=== PATIENT | male | born 1945 | race Caucasian/White ===

== ENCOUNTER 2017-01-22 22:53 | Inpatient (IN) | payer MEDICARE ==
[~2017-01-22] VITALS: Ht 175.3 cm; Wt 73.6 kg
[2017-01-22] MEDS ORDERED: ASPIRIN81 MG PT (23:24)
[2017-01-22] MEDS ORDERED: LIPITOR40 MG PT (23:26)
[2017-01-22] MEDS ORDERED: COLACE50 MG/5 ML PT (23:28)
[2017-01-22] MEDS ORDERED: ELIQUIS5 MG PT (23:29)
[2017-01-22] MEDS ORDERED: BETAPACE 120 M120 MG PT (23:31)
[2017-01-22] MEDS ORDERED: ULTRACET TABLET1 TAB PT ×2 (23:36→23:51)
[2017-01-22] MEDS ORDERED: EFFEXOR37.5 MG PT (23:37)
[2017-01-22] MEDS ORDERED: ACETAMINOPHEN325 MG PT (23:41)
[2017-01-22] MEDS ORDERED: BISCOLAX10 MG/SUPP RC (23:42)
[2017-01-22] MEDS ORDERED: CATAPRES0.1 MG PT (23:45)
[2017-01-22] MEDS ORDERED: NITROSTAT0.4 MG SL (23:46)
[2017-01-22] MEDS ORDERED: ZOFRAN4 MG PT (23:48)
--- NOTE | 2017-01-23 02:39 | NUR ---
NEW ADMIT TO DOCTOR JC FROM [facility] TO [facility]. ADMITTED FOR SUICIDAL IDEATION. THREATENING TO COMMIT SUICIDE AND CRYING HEAVILY. HX OF CVA. LEFT SIDE WEAKNESS. PATIENT IS A FULL CODE. ADMISSION CONSENT TO TREAT RECEIVED FROM ROHINI ALVAREZ. PATIENT WAS RECEIVED TO [facility] FROM [facility] VIA [employer] SHUTTLE. [facility] STAFF ACCOMPANIED PATIENT INTO [facility] WITH PATIENT IN WHEELCHAIR. PATIENT WAS CALM AND COOPERATIVE UPON ADMISSION. ORIENTED TO UNIT. ENCOURAGE TO EXPRESS NEEDS.
[2017-01-23 07:09] LABS: BASOPHILS 0.3 % (0-2); EOSINOPHILS 2.7 % (0-7); HEMATOCRIT 41.5 % (42.0-54.0); HEMOGLOBIN 13.2 g/dL (13.5-17.5); IMMATURE GRANULOCYTES 0.8 % (0-5); LYMPHOCYTES 26.5 % (15-50); MCH 29.3 pg (26.0-34.0); MCHC 31.8 g/dL (31.0-37.0); MCV 92.2 fL (80.0-100.0); MEAN PLATELET VOLUME 9.9 fL (7.4-10.4); MONOCYTES 13.5 % (2-11); NEUTROPHILS 56.2 % (40-80); PLATELET COUNT 344 10x3/uL (130-400); RDW 14.2 % (11.5-14.5); WBC 6.6 10x3/uL (4.8-10.8)
[2017-01-23 07:17] LABS: HEMOGLOBIN A1C 5.4 % (4.8-6.0)
[2017-01-23 07:37] LABS: ALBUMIN 2.9 g/dL (3.4-5.0); ALKALINE PHOSPHATASE 194 U/L (46-116); ALT (SGPT) 54 U/L (10-68); BILIRUBIN - TOTAL 0.52 mg/dL (0.2-1.3); CALC OSMOLALITY 280 mosm/kg (275-300); CALCIUM 9.2 mg/dL (8.5-10.1); CARBON DIOXIDE 28.2 mmol/L (21.0-32.0); CHLORIDE - SERUM 103 mmol/L (98-107); CHOL - HDL RATIO 2.8 ratio (2.3-4.9); CHOLESTEROL, TOTAL 120 mg/dL (0-200); GLUCOSE 94 mg/dL (74-106); HDL CHOLESTEROL 43 mg/dL (32-96); LDL CHOLESTEROL 59 mg/dL (0-100); LDL-HDL RATIO 1.4 ratio (1.5-3.5); POTASSIUM - SERUM 3.9 mmol/L (3.5-5.1); PROTEIN - SERUM 7.3 g/dL (6.4-8.2); SODIUM 140 mmol/L (136-145); THYROID STIMULATING HORMONE 1.19 uIU/mL (0.36-3.74); TRIGLYCERIDE 90 mg/dL (30-200); UREA NITROGEN 18 mg/dL (7-18); eGFR NON AFRICAN AMERICAN 78 mL/min (90-120)
[2017-01-23 14:04] LABS: APPEARANCE CLEAR (CLEAR); COLOR YELLOW (YELLOW); GLUCOSE NEGATIVE (NEGATIVE); KETONE NEGATIVE (NEGATIVE); NITRITE NEGATIVE (NEGATIVE); PROTEIN NEGATIVE (NEGATIVE); UROBILINOGEN NORMAL (NORMAL)
[2017-01-23 14:05] LABS: BILIRUBIN NEGATIVE (NEGATIVE)
--- NOTE | 2017-01-23 14:46 | NUR ---
CHECKED RESIDUAL BEFORE TF, NO RESIDUAL. 75ML H2O FLUSH, OSMOLITE 1.5 (1CAN), FOLLOWED BY 75ML H2O FLUSH. PT TOLERATED WELL, STATED HE IS NOT HUNGRY AND DOES NOT LIKE BEING FED THRU THE TUBE. I ASKED WHY HE IS NOT EATING HIS MEALS AND HE STATED HE JUST DOES NOT WANT TO EAT, AND WILL EAT WHEN HE FEELS LIKE IT.
[2017-01-23 16:04] VITALS: BP 144/85
--- NOTE | 2017-01-23 17:11 | NUR ---
ORIENTED TO SELF,PLACE AND DATE.DENIES SUICIDAL IDEATION,STATES"I JUST HAD THAT THOUGHT ONE TIME,BUT I WOULD NEVER DO IT."IS COMPLIANT WITH STAFF AND MEDS.TOTAL CARE,LEFT ARM FLACCID,LEFT LEG WEAK.WILLCONTINUE WITH PLAN OF CARE,MONITOR FOR CHANGES AND SAFETY.
[2017-01-23 19:30] VITALS: BP 140/83
--- NOTE | 2017-01-23 19:43 | NUR ---
C/O CHEST PAIN LEFT SIDE OF CHEST. BP 133/60 P58 O2 98%, GAVE PRN NITRO.
--- NOTE | 2017-01-23 21:30 | NUR ---
RECEIVED IN HALLWAY. RESTING QUIETLY IN RECLINING CHAIR. GIVE A NITRO TAB BY DAYSHIFT NURSE TO RELIEVE CHEST PAIN. TRANSFERED TO BED. CALM AND COOPERATIVE WITH ADMIT ASSESSMENTS. STATS HE HAS NO CHEST PAIN AFTER TAKING NITRO. DOCTOR EMILIANO CALLED AND NO NEW ORDERS RECEIVED. ENCOURAGE TO EXPRESS NEEDS. DENIES THOUGHTS OF SELF HARM. CONTINUE PLAN OF CARE
--- NOTE | 2017-01-24 05:02 | PSY ---
PATIENT NAME:GENESIS HOLLIS MEDICAL RECORD: [id number] : 45 LOCATION:DebraJM June3 ADMISSION DATE: 01/22/17 ACCOUNT: [id number] PSYCHIATRIC EVALUATION DATE OF EVALUATION: 01/23/17 IDENTIFYING DATA: This is the first [facility] admission and as far as can be determined the psychiatric contact for this 71-year-old single white male. HISTORY OF PRESENT ILLNESS: This patient is a resident of [facility] in [place]. 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 Evidently as a complication of this, the patient has difficulty with swallowing. He does have a PEG tube in place. The reason for admission was due to the fact that the patient had been overheard making suicidal statements by assisted staff. They became alarmed about this and had him transferred here. The patient had already been started on Effexor 37.5 mg twice a day as of one week ago. The patient's niece was interviewed by phone. She stated that she was very concerned about the frequency of medication changes that have occurred with the patient over the last several weeks. She mentioned that he had already been tried on methylphenidate as well as Symmetrel, both of these medications have been stopped. She had noted a deterioration in mental status and was speculating that perhaps medication changes might be at least partly responsible for those observed changes. The patient upon arrival at [place] did not continue to express any type of suicidal ideation. He was very pleasant and cooperative and has remained sober since then. The patient is now admitted for further medical and psychiatric workup. PAST MEDICAL HISTORY: As mentioned, the patient did suffer recent cerebrovascular accident. He appears to have a past history of hypertension and coronary artery disease. MEDICATIONS: At the time of admission included Effexor as mentioned above, Betapace 120 mg twice a day, Lipitor 40 mg daily, aspirin 81 mg daily, Eliquis 5 mg twice a day, p.r.n. tramadol, Zofran, also Nitrostat, Catapres 0.1 mg every 4 hours p.r.n. FAMILY HISTORY: Apparently is noncontributory. SOCIAL HISTORY: The patient is a assisted resident. He does not have family involved in his care other than his niece. There is no history of substance abuse problems. ALLERGIES: LISTED CODEINE AND PENICILLIN TYPE DRUGS. MENTAL STATUS: On interview, the patient is pleasant and receptive to the examiner. He states that he does not feel like hurting himself, but does admit to feeling depressed. Affect is bland. Speech is rather terse, but otherwise generally appropriate. Content of thought as mentioned is positive for recent suicidal ideation. The patient is oriented to person and to place, but not correctly as to the date. Remote recall appears to be intact. Concentration and short-term recall do show some difficulties. DIAGNOSTIC IMPRESSION: AXIS I: Major depressive disorder - single episode - rule out early dementia. AXIS II: No diagnosis. AXIS III: Status post cerebrovascular accident, hypertension, coronary artery disease, hypercholesterolemia. AXIS IV: Moderate. AXIS V: 38. PLAN: 1. The patient will be admitted for further workup from a medical and psychiatric standpoint. 2. Daily supportive therapy. 3. We will coordinate with family regarding aftercare. TRANSINT:[id number] Voice Confirmation ID: [id number] DOCUMENT ID: [id number] VALARIE GREENE III, MD at 0502 CC: [id number] DICTATION DATE: 01/23/17915 DAM TENDER: 01/23/17 0942 ADM IN [facility] [address] [place] [address]
[2017-01-24 08:05] VITALS: BP 121/68
--- NOTE | 2017-01-24 20:06 | NUR ---
HAS BEEN ALERT AND ORIENTED TODAY.LEFT ARM FLACCID AND REQUIRES ASSIST WITH MEALS.COMPLIANT WITH MEDS AND STAFF.WILL CONTINUE WITH PLAN OF CARE,MONITOR FOR CHANGES.
[2017-01-24 20:30] VITALS: BP 125/78
--- NOTE | 2017-01-24 20:57 | NUR ---
EMILY [facility]. SITTING IN A RECLINING CHAIR. CALM AND COOPERATIVE WITH CARE AND ASSESSMENTS. DENIES THOUGHTS OF SELF HARM. RESTING IN BED EYES CLOSED AT THIS TIME. CONTINUE PLAN OF CARE
--- NOTE | 2017-01-25 01:16 | NUR ---
PATEINT REFUSED TUBE FEEDING THIS PM. STATING HE STILL FEELS SICK AT HIS STOMACH.
[2017-01-25 07:09] LABS: VITAMIN D 25 HYDROXY 16.9 ng/mL (30.0-100.0)
[2017-01-25 07:25] VITALS: BMI 23.9
--- NOTE | 2017-01-25 10:30 | NUR ---
B) PATIENT IS AWAKE AND ALERT AND HE IS TALKING, DENIES S.I. HE DOES NOT AMBULATE, HE IS IN A ARLIN CHAIR AT THIS TIME. I) PROVIDE PRESCRIBED MEDS. R) PATIENT DID RECEIVE HIS TUBE FEEDING AND WATER FLUSHES. P) CONTINUE POC.
[2017-01-25 11:26] VITALS: Ht 175.3 cm; Wt 73.6 kg
--- NOTE | 2017-01-25 11:28 | NUR ---
PATIENT C/O CHEST PAIN, DID PROVIDE NITRO SL, WILL MONITOR.
--- NOTE | 2017-01-25 12:08 | NUR ---
PATIENT HAS NO C/O PAIN AT THIS TIME, HE IS RESTING EASILY.
[2017-01-25 12:18] VITALS: BP 121/69
--- NOTE | 2017-01-25 20:17 | NUR ---
RECEIVED IN HALLWAY. SITTING IN A RECLINING CHAIR OUTSIDE OF NURSES STATION. IN GOOD SPIRITS. CALM AND COOPERATIVE WITH CARE AND ASSESSMENTS. DENIES THOUGHTS OF SELF HARM. ENCOURAGE TO EXPRESS NEEDS. REMAINS IN RECLINING CHAIR. RESTING QUIETLY WITH EYES CLOSED. CONTINUE PLAN OF CARE
[2017-01-25 20:35] VITALS: BP 97/63
--- NOTE | 2017-01-25 20:41 | NUR ---
PATIENT STATES CHEST PAIN OF 10. VITALS 134/61, 57. PRN NITRO 0.4 MG GIVEN FOR CHEST PAIN.
[2017-01-26 03:09] LABS: RAPID PLASMA REAGIN Non Reactive (Non Reactive)
[2017-01-26 05:13] LABS: FOLATE (FOLIC ACID) - SERUM 9.2 ng/mL (>3.0)
--- NOTE | 2017-01-26 09:42 | NUR ---
Nutrition Note: Pt is on a regular mechanical soft diet. He is also receiving Osmolite 1.5 - 1 can 4x/d (0600, 1000, 1400, 1900) with 75 ml H2O flush before and after each bolus. Current TF regimen is providing 1420 kcal, 60 g protein and 1324 ml free H2O. Continue current TF regimen. If pt eats > 50% of meal do not bolus. RD following.
--- NOTE | 2017-01-26 10:17 | PN ---
PATIENT:GENESIS HOLLIS MEDICAL RECORD: [id number] LOCATION:HECTOR June ADMISSION DATE: 01/22/17 PROGRESS NOTE DATE OF SERVICE: 01/25/2017 SUBJECTIVE: No new complaint noted. OBJECTIVE: The patient has been doing well. No further suicidal ideation has been voiced. PHYSICAL EXAMINATION: On exam, mood is pleasant and euthymic. Affect is bland. Speech is fairly fluent. Content of thought is negative for suicidality. Sensorium shows no changes. ASSESSMENT: No change in diagnosis. PLAN: 1. Continue current medication. 2. Anticipate discharge in the near future. TRANSINT:[id number] Voice Confirmation ID: [id number] DOCUMENT ID: [id number] VALARIE GREENE III, MD at 1017 CC: [id number] DICTATION DATE: 01/25/17 1348 TEMPLATE REPRODUCTION TECHNICIAN: 01/25/17 1410 ADM IN [place] [id number] [place] [id number]
[2017-01-26 10:32] VITALS: BP 125/81
[2017-01-26 20:22] VITALS: BP 103/55
--- NOTE | 2017-01-26 20:45 | NUR ---
RECEIVED IN HALLWAY. RESTING IN A RECLINER OUTSIDED OF NURSES STATION. CALM AND COOPERATIVE WITH CARE AND ASSESSMENTS. DENIES THOUGHTS OF SELF HARM. ENCOURAEG TO EXPRESS NEEDS. RESTING IN RECLINER EYE OPEN AT THIS TIME. CONTINUE PLAN OF CARE
[2017-01-27 08:00] VITALS: BP 158/80
--- NOTE | 2017-01-27 09:31 | PN ---
PATIENT:GENESIS HOLLIS MEDICAL RECORD: [id number] LOCATION:HECTOR June ADMISSION DATE: 01/22/17 PROGRESS NOTE DATE OF SERVICE: 01/26/2017 SUBJECTIVE: No new complaint. OBJECTIVE: The patient has done well. No further suicidal ideation has been noted. Tolerating medications without difficulty. He will require a level 2 screen from [facility] [facility] [employer]. On exam, mood is euthymic. Affect bland. Speech is terse, but otherwise fluent. Content of thought is negative for overt psychosis or suicidalities. Sensorium unchanged. ASSESSMENT: No change in diagnosis. PLAN: 1. Maintain current medication. 2. Continue supportive therapy. TRANSINT:[id number] Voice Confirmation ID: [id number] DOCUMENT ID: [id number] VALARIE GREENE III, MD at 0931 CC: [id number] DICTATION DATE: 01/26/17 1204 SECURITY ESCORT: 01/26/17 1224 ADM IN [place] [address] [place] [address]
--- NOTE | 2017-01-27 11:00 | NUR ---
OSMOLITE 1.5 240 ML ADMIN PER G TUBE, FLUSHED WITH 75 CC H20 BEFORE AND AFTER. PLACEMENT CHECKED PRIOR TO FEEDING VIA AUSCULTATION AND ASPIRATION. BRE WELL.
--- NOTE | 2017-01-27 11:18 | NUR ---
SW SPOKE WITH PT AND HE STATED HE WAS NEEDING TO SPEAK WITH HIS NIECE. SW STATED HE SPOKE WITH MALGORZATA YESTERDAY AT VISITATION. PT DENIED VISITATION AND STATED SHE NEEDS TO BRING HIM A GUN SO HE CAN SHOOT HIMSELF.
--- NOTE | 2017-01-27 12:21 | NUR ---
PT STATED THAT HE WANTED A GUN TO SHOOT SELF. [employer] REVIEWED WITH PT AND HE VERBALIZED CONTRACT FOR SAFETY. PT HAS A CARE PLAN IN PLACE FOR SUICIDAL IDEATION DUE TO THIS BEING THE REASON FOR HIS ADMIT. PT INITIALLY REFUSED HIS TUBE FEEDING BUT DID FINALLY LET WANDER OSBORNE COMPLETE IT AROUND 1200 NOON. PT IS RESTLESS AND DEMANDING. FALL PRECAUTIONS MAINTAINED. WILL CONTINUE TO MONITOR AND CONTINUE WITH PLAN OF CARE.
--- NOTE | 2017-01-27 15:00 | NUR ---
G TUBE PLACEMENT CHECKED VIA ASPIRATION AND AUSCULTATION, PLACEMENT CORRECT. OSMOLITE ADMIN VIA G TUBE, GRAVITY FLOW. G-TUBE FLUSHED WITH 75 ML H20 BEFORE AND AFTER FEEDING. BRE WELL.
[2017-01-27 20:05] VITALS: BP 105/52
--- NOTE | 2017-01-27 20:38 | NUR ---
RECEIVED IN HALLWAY OUTSIDE OF NURSES STATION. CALM AND COOPERATIVE WITH CARE AND ASSESSMENTS. DENIES THOUGHTS OF SUICIDE. ENCOURAGE TO EXPRESS NEEDS AND FEELINGS. CONTINUES TO REST IN HALLWAY IN RECLINER. CONTINUE PLAN OF CARE
--- NOTE | 2017-01-28 08:07 | PN ---
PATIENT:GENESIS HOLLIS MEDICAL RECORD: [id number] LOCATION:HECTOR June ADMISSION DATE: 01/22/17 PROGRESS NOTE DATE OF SERVICE: 01/27/2017 SUBJECTIVE: The patient expresses frustration with family and his situation and makes reference to "ending it all." OBJECTIVE: The patient had been doing quite well up until the family visitation yesterday. Subsequent to this, this morning, the patient has refused to eat and has made the statement noted above. On exam, mood is dysphoric. Affect is more constricted. Speech is rather terse. Content of thought as noted above. Sensorium shows no change. ASSESSMENT: No change in diagnosis. PLAN: 1. We will continue close observation and treatment for depression. 2. Continue current medication plan. TRANSINT:[id number] Voice Confirmation ID: [id number] DOCUMENT ID: [id number] VALARIE GREENE III, MD at 0807 CC: [id number] DICTATION DATE: 01/27/17 1149 AEROBICS TEACHER: 01/27/17 1219 ADM IN [place] [id number] [place] [address]
--- NOTE | 2017-01-28 08:17 | NUR ---
ORIENTED TO PERSON ONLY. PT THINKS THAT HE IS IN HIS HOME IN [place]. FREQUENT REDIRECTION DONE WITH NO EVIDENCE OF RETAINING. NO AGGRESSION NOTED BUT PT IS DEMANDING. TUBE FEEDING FOR 0600 HELD DUE TO PT C\O NAUSEA. WILL ATTEMPT TO GET PT TO EAT BREAKFAST. FALL PRECAUTIONS MAINTAINED. WILL CONTINUE TO MONITOR AND CONTINUE WITH PLAN OF CARE.
--- NOTE | 2017-01-28 11:14 | NUR ---
PT REFUSED 1000 TUBE FEEDING.
[2017-01-28 11:59] VITALS: BP 110/60
--- NOTE | 2017-01-28 15:58 | NUR ---
LEI MET WITH PT'S NIECE, MALGORZATA, TO DISCUSS PT'S CARE. PT IS WAITING ON [facility] EVALUATION THAT WILL HAPPEN TOMORROW. LEI STATED AFTER HE GETS A LETTER FROM [facility] STATING HE CAN GO BACK TO [place] MD WILL RELEASE IF BEHAVIORS ARE STABLE. MALGORZATA VERBALIZED UNDERSTANDING OF DISCUSSION.
--- NOTE | 2017-01-28 17:27 | NUR ---
PATIENT C/O BACK PAIN, DID PROVIDE ULTRAM 50 MG PO, WILL MONITOR.
--- NOTE | 2017-01-28 18:04 | NUR ---
PATIENT SAYS HIS PAIN IS A LITTLE BETTER NOW. RATES IT 4-5/.
--- NOTE | 2017-01-28 19:35 | NUR ---
RECEIVED IN DAYROOM. RESTING IN RECLINER WITH EYES OPEN. CALM AND COOPERATIVE WITH CARE AND ASSESSMENT. DENIES THOUGHTS OF SELF HARM. COMPLAINS OF CHEST PAIN. RATES CHEST PAIN LEVEL AT 8. VITAL SIGNS STABLE. NITRO GIVEN. REDIRECT AND REORIENT NEEDED. PATIENT SITTING IN RECLINER SOCIALIZING WITH STAFF. CONTINUE TO MONITOR. CONTINUE PLAN OF CARE.
[2017-01-28 22:00] VITALS: BP 103/59
--- NOTE | 2017-01-29 07:40 | NUR ---
RECEIVED IN BEDROOM. RESTING IN BED WITH EYES CLOSED. RESPONDS TO VOICE. G-TUBE INTACT. CALM AND COOPERATIVE WITH CARE AND ASSESSMENT. DENIES THOUGHT OS SELF HARM. ENCOURAGE TO EXPRESS NEEDS. CONTINUES TO REST QUIETLY IN BED. CONTINUE PLAN OF CARE
--- NOTE | 2017-01-29 10:07 | PN ---
PATIENT:GENESIS HOLLIS MEDICAL RECORD: [id number] LOCATION:HCETOR June ADMISSION DATE: 01/22/17 PROGRESS NOTE DATE OF SERVICE: 01/28/2017 SUBJECTIVE: The patient states that he is not suicidal. OBJECTIVE: The patient has shown improvement since yesterday. He stated that he was feeling "desperate" because of pain. Pain medications have been adjusted. On exam, mood is more or less euthymic. Affect is bland. Speech is somewhat terse. Content of thought is negative for overt psychosis or suicidalities. Sensorium shows no change. ASSESSMENT: No change in diagnosis. PLAN: 1. Continue current medications. 2. Continue supportive therapy. TRANSINT:[id number] Voice Confirmation ID: [id number] DOCUMENT ID: [id number] VALARIE GREENE III, MD at 1007 CC: [id number] DICTATION DATE: 01/28/17 1146 PLANT PATHOLOGIST: 01/28/17 1221 ADM IN [place] [address] [place] [address]
[2017-01-29 10:47] VITALS: BP 110/65
--- NOTE | 2017-01-29 10:48 | NUR ---
PATIENT C/O CHEST PAIN, CHECKED BP IT IS 110/60, BUT PATIENT INSISTED ON A NITROSTAT 0.4 MG SL. DID TRY TO TALK TO THE PATIENT TO EXPLAIN THAT HE IS PROBABLY HAVING AN ANXIETY ATTACK. PATIENT THEN OPENED UP AND SAID "YES, I PROBABLY AM, THE PADDING MACHINE OPERATOR TOLD ME MY HEART WAS BAD AND SO EVERYTIME I FEEL ANY LITTLE DIFFERENCE I WORRY" PATIENT ALSO JUST SAW THE INTERVIEWER FROM [facility] [place] AND THAT MAY HAVE BEEN A CONTRIBUTING FACTOR FOR MORE ANXIETY. HE SAID "I JUST TOOK A TEST AND I'M NOT SURE IF I DID GOOD OR NOT" TRIED TO REASSURE PATIENT THAT HE DID WELL AND THAT THE LADY DID SAY SHE THOUGHT HE WOULD BE FINE TO GO BACK TO [place] [facility] AT THIS TIME. HE DID FEEL A LITTLE BETTER. NO MORE C/O CHEST PAIN AFTER THE NITROSTAT AND CONVERSATION, PATIENT TOOK A NAP.
[2017-01-29 19:30] VITALS: BP 124/62
--- NOTE | 2017-01-30 04:58 | NUR ---
B) Patient alert and oriented to self and being in a hospital, calmer and pleasant today, impatient at times does redirect. I) Administered scheduled medications, monitored for safety R) Medication compliant, resting quietly in bed P) Continue plan of care.
[2017-01-30 08:00] VITALS: BP 120/53
--- NOTE | 2017-01-30 08:02 | NUR ---
B) PATIENT IS SLEEPING, BUT HE AWAKENS EASILY. WHILE ASSESSING PATIENT SAYS "EW I SMELL SMOKE" AND BEGAN FANNING THE SCENT AWAY. EXPLAINED TO PATIENT THAT I DIDN'T SMOKE, BUT HE MAY BE SMELLING THE ALCOHOL HAND PLANOGRAMMER. PATIENT DID NOT SAY ANYTHING ELSE. HE HAS NOT MADE ANY S.I. STATEMENTS THIS AM. I) PROVIDE PRESCRIBED MEDS. R) PATIENT IS COMPLIANT, BUT HAS MULTIPLE C/O. P) CONTINUE POC.
[2017-01-30 19:28] VITALS: BP 143/56
--- NOTE | 2017-01-31 03:13 | NUR ---
B) Patient is alert and oriented to self and being in a hospital, unaware of why he is here, somatic complaints I) Administered scheduled medications, resirected as needed, monitored for safety R) Medication complaint, resting in bed sleeping now, P) Continue plan of care.
[2017-01-31 07:00] VITALS: BP 112/67
--- NOTE | 2017-01-31 11:54 | NUR ---
NTG 0.4MG SL GIVEN FOR C/O CHEST PAIN.BP 103/56,P66,RESP 18,SAT 94% ON RA.SKIN WARM,DRY AND PINK.
--- NOTE | 2017-01-31 11:58 | NUR ---
CHEST PAIN RELIEVED.BP 99/56,P 68,RESP 18,SAT 68% ON RA.
--- NOTE | 2017-01-31 15:53 | NUR ---
ORIENTED TO SELF ONLY.LEFT SIDE WEAKNESS.TRANSFERS TO WHEELCHAIR PER 2,AT TIMES REQUIRES AST OF 3.COMPLIANT WITH MEDS CRUSHED AND GIVEN IN PUDDING.TALKS ABOUT WHEN THEY CUT HIS LEFT HAND OFF.STATES "I DON'T KNOW WHY THEY WOULD CUT OFF MY HAND AFTER I HAD A STROKE,I HAVE THE OTHER HALF IN MY ROOM IN A PLASTIC BAG."NURSE UNABLE TO CONVENCE HIM OTHERWISE.WILL CONTINUE WITH PLAN OF CARE,MONITOR FOR CHANGES AND SAFETY.
[2017-01-31 19:30] VITALS: BP 117/63
--- NOTE | 2017-01-31 20:26 | NUR ---
RECEIVED IN BEDROOM. ASSIST TO TRANSFERE TO BED. G-TUBE INTACT. CALM AND COOPERATIVE WITH CARE AND ASSESSMENT. DENIES THOUGHTS OF SELF HARM. ENCOURAGE TO EXPRESS NEEDS. RESTING IN BED WITH EYES CLOSED. CONTINUE PLAN OD CARE
[2017-02-01 08:17] VITALS: BP 113/74
--- NOTE | 2017-02-01 09:39 | PN ---
PATIENT:GENESIS HOLLIS MEDICAL RECORD: [id number] LOCATION:HECTOR June ADMISSION DATE: 01/22/17 PROGRESS NOTE DATE OF SERVICE: 01/29/2017 SUBJECTIVE: The patient states that he is feeling a little better. OBJECTIVE: Aside from pain complaints, the patient does not have any new difficulties. No further evidence of suicidality. PHYSICAL EXAMINATION: On exam, mood is for the most part euthymic. Affect is slightly constricted. Speech is fluent. Content of thought as noted above. Sensorium unchanged. ASSESSMENT: No change in diagnosis. PLAN: 1. Maintain current medications. 2. Continue supportive therapy. TRANSINT:[id number] Voice Confirmation ID: [id number] DOCUMENT ID: [id number] VALARIE GREENE III, MD at 0939 CC: [id number] DICTATION DATE: 01/29/17 111 MEDICAL BILLING CLERK: 01/29/17 1149 ADM IN [place] [address] [place] [address]
--- NOTE | 2017-02-01 11:00 | NUR ---
ORIENTED TO SELF ONLY. CALM AND COOPERATIVE WITH ASSESSMENT. COMPLIANT WITH TAKING MEDICATIONS CRUSHED IN PUDDING. LEFT SIDED WEAKNESS AND IS A 2-3 PERSON ASSIST. MONITOR FOR SAFETY AND CHANGES. CONTINUE PLAN OF CARE.
[2017-02-01 19:21] VITALS: BP 152/65
--- NOTE | 2017-02-01 19:40 | NUR ---
RECEIVED IN HALLWAY. SITTING IN A RECLINER OUTSIDE OF NURSES STATION. CALM AND COOPERATIVE WITH CARE AND ASSESSMENTS. DENIES THOUGHTS OF SELF HARM. ENCOURAGE TO EXPRESS NEED. CONTINUE TO SIT QUIETLY IN RECLINER. CONTINUE PLAN OF CARE
--- NOTE | 2017-02-02 06:06 | PN ---
PATIENT:GENESIS HOLLIS MEDICAL RECORD: [id number] LOCATION:HECTOR June ADMISSION DATE: 01/22/17 PROGRESS NOTE DATE OF SERVICE: 02/01/2017 SUBJECTIVE: No new complaint noted. OBJECTIVE: The patient has done well over the weekend. No further suicidal ideation. We are waiting on assessment by [facility]. On exam, mood is euthymic. Affect is bland, somewhat constricted. Speech is fairly fluent. Content of thought is negative for suicidality. Sensorium unchanged. ASSESSMENT: No change in diagnosis. PLAN: 1. Continue current medications. 2. Continue supportive therapy. TRANSINT:[id number] Voice Confirmation ID: [id number] DOCUMENT ID: [id number] VALARIE GREENE III, MD at 0606 CC: [id number] DICTATION DATE: 02/01/17 1307 MECHANICAL PRODUCT ENGINEER: 02/01/17 1320 ADM IN [place] [address] [place] [id number]
[2017-02-02 11:08] VITALS: BP 124/73
--- NOTE | 2017-02-02 13:43 | NUR ---
Nutrition Follow Up: Chart reviewed. Pt is eating 0% meal avg most meals. Pt has been receiving Osmolite 1.5 bolus 4x/d if eating <50% at meal time. +BM 01/31/17. Meds and labs reviewed. Rec continue current diet. Rec continue to bolus 1 can Osmolite 1.5 if pt consumes <50% of meal. Rec consider an appetite stimulant. RD following.
[2017-02-02 20:06] VITALS: BP 130/75
--- NOTE | 2017-02-02 21:09 | NUR ---
RECEIVEDIN HALLWAY SITTING IN A RECLINING CHAIR. ASSIST TO TRANSFERE TO BED. SOCIAL WITH STAFF. CALM AND COOPERATIVE WITH CARE AND ASSESSMENTS. DENIES THOUGHTS OF SELF HARM. CHANGED G-TUBE DRESSING. REDIRECT AND REORIENT NEEDED. ENCOURAGE TO EXPRESS NEEDS. RESTING IN BED WITH EYES CLOSED AT THIS TIME. CONTINUE PLAN OF CARE
--- NOTE | 2017-02-03 05:14 | PN ---
PATIENT:GENESIS HOLLIS MEDICAL RECORD: [id number] LOCATION:[facility]AIN[facility] Perez112 ADMISSION DATE: 01/22/17 PROGRESS NOTE DATE OF SERVICE: 02/02/2017 SUBJECTIVE: No new complaint. OBJECTIVE: The patient continues to do well, we are awaiting results from [facility]. On exam, mood is euthymic, affect is bland and pleasant. Speech is fairly fluent. Content of thought is negative for suicidal ideation. Sensorium unchanged. ASSESSMENT: No change in diagnosis. PLAN: 1. Maintain current medication. 2. Continue supportive therapy. TRANSINT:[id number] Voice Confirmation ID: [id number] DOCUMENT ID: [id number] VALARIE GREENE III, MD at 0514 CC: [id number] DICTATION DATE: 02/02/17 1038 TIGHT COOPER: 02/02/17 [address] [facility] [address] [place] [address]
[2017-02-03 08:00] VITALS: BP 109/66
[2017-02-03] MEDS ORDERED: ISOSORBIDE MONO30 M1 PO (10:52)
[2017-02-03] MEDS ORDERED: ULTRACET TABLET1 TAB PT (10:53)
[2017-02-03] MEDS ORDERED: EFFEXOR50 MG PT (10:54)
[2017-02-03] MEDS ORDERED: PROTONIX FOR OR40 MG PT (10:55)
[2017-02-03] MEDS ORDERED: VITAMIN B-121000 MCG PO (10:56)
[2017-02-03] MEDS ORDERED: VITAMIN D5000 UNIT PO (10:56)
--- NOTE | 2017-02-03 11:00 | NUR ---
ORIENTED TO SELF AND PLACE. CALM AND COOPERATIVE WITH ASSESSMENT. COMPLIANT WITH PRESCRIBED MEDICATIONS. FALL PRECAUTIONS MAINTAINED. MONITOR FOR SAFETY AND CHANGES. CONTINUE PLAN OF CARE.
[2017-02-03 19:43] VITALS: BP 122/60
--- NOTE | 2017-02-04 00:52 | NUR ---
B) Patient alert and oriented to self and hospital, calm and cooperative, I) Administered scheduled medications, monitored for safetty, R) Medication compliant, resting quietly , P) Continue plan of care.
[2017-02-04 08:00] VITALS: BP 131/59
--- NOTE | 2017-02-04 08:22 | PN ---
PATIENT:GENESIS HOLLIS MEDICAL RECORD: [id number] LOCATION:HECTOR Perez112 ADMISSION DATE: 01/22/17 PROGRESS NOTE DATE OF SERVICE: 02/03/2017 SUBJECTIVE: No new complaint. OBJECTIVE: The patient is doing well. We have received confirmation from [facility] he will be able to be discharged tomorrow. On exam, mood is slightly anxious. Affect is bland. Speech is fairly fluent. Content of thought focuses on somatic concerns. Sensorium is unchanged. ASSESSMENT: No change in diagnosis. PLAN: 1. Continue current medications. 2. Continue supportive therapy. TRANSINT:[id number] Voice Confirmation ID: [id number] DOCUMENT ID: [id number] VALARIE GREENE III, MD at 0822 CC: [id number] DICTATION DATE: 02/03/171124 PARKING ENFORCER: 02/03/[address] [facility] [address] [place] [address]
--- NOTE | 2017-02-04 10:36 | NUR ---
PATIENT SITTING UP IN ARLIN CHAIR, NURSE ATTEMPTING TO PUT LIDOCAINE PATCHETS ON HIS BACK. PATIENT LEANED OVER TO LEFT SIDE, NURSE GRABBED HIM BACK IN THE CHAIR, PATIENT LEANED OVER TO LEFT AGAIN AND HE SLID OUT OF HIS CHAIR THEN HIT THE LEFT SIDE OF HIS HEAD ON THE FLOOR, CALLED PATIENT'S POLety AND DR CUMMINGS, NO NEW ORDERS.
--- NOTE | 2017-02-04 11:00 | NUR ---
PATIENT REFUSED BOLUS FEEDING AT THIS TIME.
--- NOTE | 2017-02-04 11:03 | NUR ---
SORAYA IS SHAVING PATIENT AND HE IS CRYING AND SAYING "GOD'S NEVER DONE NOTHING FOR ME, HE JUST LET ME FALL ION THE FLOOR" SORAYA TOLD HIM "NO, SIR, YOU DID THAT, GOD DID NOT DO THAT" PATIENT CONTINUES WITH EVERY POSSIBLE NEGATIVE STATEMENT. THE GROUP SUBJECT HAS BEEN ABOUT BEING THANKFUL, BUT PATIENT SAYS "OH, I;LL GO TO ICU NIW, I HURT SO BAD TODAY" PATIENT DID RECEIVE PAIN PILL WITH MEDS.
--- NOTE | 2017-02-04 12:15 | NUR ---
CALLED REPORT TO KIRBY, A HARD COPY OF D/C AND MED LIST SENT. BELONGINGS ACCOUNTED FOR.
--- NOTE | 2017-02-17 10:15 | DS ---
PATIENT:GENESIS HOLLIS :45 MEDICAL RECORD: [id number] DISCHARGE SUMMARY ADMISSION DATE: 01/22/17 DISCHARGE DATE: 02/04/17 DATE OF ADMISSION: 01/22/2017 DATE OF DISCHARGE: 02/04/2017 HISTORY: This 71-year-old white male who is a resident of [facility]. 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 He had shown some lability of affect and made suicidal statements at the residential and for that reason was transferred here. For further details, please see previously dictated history. COURSE IN THE HOSPITAL: The patient was seen in consultation by Dr. Villa. Dr. Villa noted the presence of recent CVA, hypertension, and hyperlipidemia. The patient was treated very conservatively from a medication standpoint. He had previously been treated with Effexor 37.5 mg b.i.d. This was advanced to 50 mg b.i.d. Aside from that, the patient was not given additional psychotropic medications. Blood pressure was managed appropriately with his current medications. The patient showed good resolution of his depressive symptoms. He participated well in group and individual therapy. By the time of discharge, he was felt to be stable to return to the residential. FINAL DIAGNOSES: AXIS I: Major depression, single episode - improving. AXIS II: No diagnosis. AXIS III: Status post cerebrovascular accident, hypertension, coronary artery disease, hypercholesterolemia. AXIS IV: Moderate. AXIS V: 50. PLAN: 1. The patient is discharged on current medications. 2. Diet and activities as tolerated. 3. Follow up through primary care physician at the residential. TRANSINT:[id number] Voice Confirmation ID: [id number] DOCUMENT ID: [id number] VALARIE GREENE III, MD at 1015 CC: [id number] DICTATION DATE: 02/04/17 1052 HOME SUPPORT WORKER: 02/04/17 1131 DIS IN 02/04/17 [id number] [place] [address]
== END 2017-02-04 12:20 | DRG 881 ==
LOC: D.PSYCH 22:53
PROVIDERS: ADMIT Psychiatry & Neurology Psychiatry
DX: F32.9 Major depressive disorder, single episode, unspecified (principal); F01.51 Vascular dementia, unspecified severity, with behavioral disturbance; I69.919 Unspecified symptoms and signs involving cognitive functions following unspecified cerebrovascular disease; Z74.09 Other reduced mobility; I25.10 Atherosclerotic heart disease of native coronary artery without angina pectoris; E78.00 Pure hypercholesterolemia, unspecified; I10 Essential (primary) hypertension; E78.5 Hyperlipidemia, unspecified; E55.9 Vitamin D deficiency, unspecified; E53.8 Deficiency of other specified B group vitamins; I48.91 Unspecified atrial fibrillation; Z87.891 Personal history of nicotine dependence

== ENCOUNTER 2018-01-06 10:37 | Emergency (ER) | payer MEDICARE ==
[~2018-01-06] VITALS: Ht 175.3 cm; Wt 71.8 kg
[~2018-01-06 10:37] MED LIST: ACETAMINOPHEN325 MG PT; ASPIRIN81 MG PT; BETAPACE 120 M120 MG PT; BISCOLAX10 MG/SUPP RC; CATAPRES0.1 MG PT; COLACE50 MG/5 ML PT; EFFEXOR37.5 MG PT; EFFEXOR50 MG PT; ELIQUIS5 MG PT; ISOSORBIDE MONO30 M1 PO; LIPITOR40 MG PT; NITROSTAT0.4 MG SL; PROTONIX FOR OR40 MG PT; ULTRACET TABLET1 TAB PT; VITAMIN B-121000 MCG PO; VITAMIN D5000 UNIT PO; ZOFRAN4 MG PT
[2018-01-06 10:58] VITALS: BP 178/101; Ht 175.3 cm; Wt 71.8 kg
== END 2018-01-06 13:48 | disposition home or self-care (01) ==
LOC: D.ER 10:37
DX: K94.23 Gastrostomy malfunction (principal); I69.854 Hemiplegia and hemiparesis following other cerebrovascular disease affecting left non-dominant side; I10 Essential (primary) hypertension

== ENCOUNTER 2018-07-13 16:30 | Inpatient (IN) | payer MEDICARE ==
--- NOTE | 2018-07-13 16:58 | NUR ---
PATIENT ARRIVED TO UNIT VIA W/C IN [place]. PATIENT ALERT, AGITATED, YELLING AND CURSING VERY LOUDLY, CURSING ABOUT BEING IN [facility] "OVER A CAT". STATED, "I WENT TO [place] AND FOUGHT AND ONLY TO BE ARRESTED OVER A F CAT!" EXPERIENCING VISUAL HALLUCINATIONS, SEEING PEOPLE THAT ARE NOT PRESENT. DISTURBING THE UNIT WITH EXTREME PROFANITY AND YELLING.
--- NOTE | 2018-07-13 17:00 | NUR ---
ADMIT TO [facility] LONG TERM UNIT [id number] RECEIVED VIA VAN FROM [facility]. WITH ALTERED MENTAL STATUS, FALL RISK, AND AGGRESSION. PATIENT HAS A HISTORY OF CVA IN 2017, HYPOKALEMIA, ANXIETY DISORDER, AND HYPERLIPIDEMIA. HE HAS A PEG TUBE IN PLACE,WHICH IS NOT BEING USED AT THIS TIME SINCE PATIENT IS ABLE TO EAT. HE HAS BEEN YELLING AND CURSING STAFF, REFUSED MEDS, HE WISHES SOMEONE WOULD SHOOT HIM IN THE HEAD, AND PARONOID HAT THEY ARE TRYING TO POISON HIM. WILL CONTINUE PLAN OF CARE.
--- NOTE | 2018-07-13 18:13 | NUR ---
HALDOL 2 MG AND ATIVAN 0.5 MG ADMIN IM RIGHT DELTOID FOR AGITATION AND ANXIETY. CONT TO CURSE, RANT, AND RAVE, EXTREMELY HOSTILE AND AGGRESSIVE!!!!!!
[2018-07-13 19:48] VITALS: BP 139/79
[2018-07-13 20:26] LABS: APPEARANCE HAZY (CLEAR); BACTERIA MODERATE /hpf (NONE SEEN); BILIRUBIN NEGATIVE (NEGATIVE); COLOR YELLOW (YELLOW); GLUCOSE NEGATIVE (NEGATIVE); KETONE NEGATIVE (NEGATIVE); NITRITE NEGATIVE (NEGATIVE); PROTEIN NEGATIVE (NEGATIVE); RED CELLS - URINE OCC /hpf (0-5); UROBILINOGEN NORMAL (NORMAL); WHITE CELLS - URINE >50 /hpf (0-5)
[2018-07-13 21:19] VITALS: BP 139/79; BMI 23.6
--- NOTE | 2018-07-14 02:00 | NUR ---
RECEIVED IN DINING ROOM. SITTING IN RECLINER AND CONTINUOUSLY YELLING. CURSING. STATING HE WANTS OUT OF HERE BECAUSE EVERYONE IS TRYING TO KILL HIM. RESISTIVE TO CARE. ATTEMPTING TO HIT AND KICK STAFF WHEN TRANSFERRING PATIENT TO BED. PATIENT REFUSES TO QUIT YELLING. WHEN ASKED WHY HE IS YELLING, PATIENT STATES HE IS GOING TO KEEP YELLING UNTIL STAFF DOES WHAT HE WANTS AND LETS HIM LEAVE. STATING STAFF WILL EVENTUALLY GET TIRED OF HEARING IT AND DO HE SAYS. UNABLE TO BE REDIRECTED. PRN ATIVAN AND HALDOL GIVEN.
[2018-07-14 08:17] LABS: BASOPHILS 0.2 % (0-2); HEMATOCRIT 40.7 % (42.0-54.0); HEMOGLOBIN 13.6 g/dL (13.5-17.5); IMMATURE GRANULOCYTES 0.4 % (0-5); MCH 30.6 pg (26.0-34.0); MCHC 33.4 g/dL (31.0-37.0); MCV 91.5 fL (80.0-100.0); MEAN PLATELET VOLUME 9.6 fL (7.4-10.4); MONOCYTES 11.1 % (2-11); NEUTROPHILS 71.3 % (40-80); PLATELET COUNT 313 10x3/uL (130-400); RBC 4.45 10x6/uL (4.20-6.10); RDW 13.7 % (11.5-14.5); WBC 9.8 10x3/uL (4.8-10.8)
[2018-07-14 08:50] LABS: ALBUMIN 2.9 g/dL (3.4-5.0); ANION GAP 14.3 mmol/L (8-16); BILIRUBIN - TOTAL 0.97 mg/dL (0.2-1.3); CALCIUM 9.7 mg/dL (8.5-10.1); CARBON DIOXIDE 24.9 mmol/L (21.0-32.0); CREATININE - SERUM 1.2 mg/dL (0.6-1.3); POTASSIUM - SERUM 4.2 mmol/L (3.5-5.1); PROTEIN - SERUM 7.4 g/dL (6.4-8.2); THYROID STIMULATING HORMONE 1.38 uIU/mL (0.36-3.74)
[2018-07-14 09:13] VITALS: BP 167/93
[2018-07-14 09:28] LABS: CHOL - HDL RATIO 2.5 ratio (2.3-4.9); LDL-HDL RATIO 1.1 ratio (1.5-3.5)
--- NOTE | 2018-07-14 09:54 | NUR ---
The patient is screaming and hollering, saying "Help." Asked him "What are you yelling about?" He says "I want my baby." Staff have made attempts to distract him with activities, snacks, drinks. He continues to yell. Ativan 0.5 mg and Haldol 2 mg IM provided in his left deltoid.
--- NOTE | 2018-07-14 10:30 | NUR ---
Dr. Villa is here and has noticed the patient is pulling at his scrotum, he has not urinated today. Did a bladder scan and there is no urine per the scan. Dr. Villa ordered an in and out cath to see if he does have any urine, he says "If ther is a lot leave the bull in, if there is minimal, leave it out."
--- NOTE | 2018-07-14 10:44 | NUR ---
Did the in and out bull with a 16 malay. The patient continues to scream and yell, but denies pain when inserting the bull. There is no urine. Did pull the catheter out. Asked the patient does his scroutum hurt or is it his penis. He said "It's his penis."
--- NOTE | 2018-07-14 10:53 | NUR ---
Spoke to Dr. Leiva about the patient's behavior and the fact that he continues to scream and yell in spite of receiving prn's this am. Dr. Leiva ordered Geodon 20 mg IM every four hours as needed.
--- NOTE | 2018-07-14 11:24 | NUR ---
The patient continues to yell. Provided Geodon 20 mg IM in his right deltoid. He said "What is that for?" Explained to him that it is to help him relax. He said "It isn't going to help." He is saying stuff about the window, saying "It's cracked, can you help me take it out, man; that gets expensive." He is yelling for "Mama" or it sounds like "Swati Guero." Mostly yells "Help."
--- NOTE | 2018-07-14 11:41 | NUR ---
Provided music to assist with relaxation. He continues to yell out and occassionally says a curse word.
--- NOTE | 2018-07-14 12:30 | NUR ---
The patient is sleeping now, staff assisted him up in the angie chair. He did not awaken for lunch.
--- NOTE | 2018-07-14 13:21 | NUR ---
The patient is awake now and he is yelling. Saying "Help."
[2018-07-14 13:45] VITALS: Wt 72.6 kg
--- NOTE | 2018-07-14 13:45 | NUR ---
PT IN CHAIR AT NURSES STATION YELLING "HELP" NURSE ADMINISTERED ATIVAN 0.5 MG AND HALDOL [address] LEAVITT ORDER. WILL REASSESS Q 1 HOUR FOR EFFECTIVENESS. WILL CONT TO MONITOR Q 15 MINS FOR SAFETY.
--- NOTE | 2018-07-14 18:40 | NUR ---
PT IS RESTING IN BED WITH EYES CLOSED. RESP EVEN AND NONLABORED. PT NOT YELLING OUT AT THIS TIME. PT REFUSED EVENING MEDICATION. CL IN REACH, BED ALARM IN PLACE AND ACTIVE. PT DID SPEND THE MAJORITY OF THE DAY YELLING OUT "HELP" WILL CONT TO MONITOR Q 15 MINS FOR SAFETY.
[2018-07-14 19:50] VITALS: BP 150/74
--- NOTE | 2018-07-15 01:23 | NUR ---
B) Patient is alert and oriented to sself, yelling out 'help' at times with no real needs, I) Administerd scheduled medications crushed in apple sauce, R) Mediation compliant, total care patient , P) Continue plan of care.
--- NOTE | 2018-07-15 07:17 | NUR ---
B) The patient is awake now and he is yelling as soon as he opened his eyes he began yelling. Staff asked him if he is hurting, he said "No." He continues to yell. He is a total lift d/t a hx stroke, he is unable to use his left arm. I) Provide prescribed meds, redirect as needed. R) The patient continues to yell, and he is fussing at the MHT, cursing, and slapped at her. P) Continue POC.
[2018-07-15 08:09] VITALS: BP 142/91
--- NOTE | 2018-07-15 08:38 | NUR ---
REC'D PT LAYING IN BED YELLING OUT "HELP, HELP, HELP" REPEATEDLY. RESP EVEN AND NONLABORED. PT SLEPT THE NIGHT. MEDICATIONS GIVEN AND PT SIT OUT THE MEDICATIONS YELLING "HELP HELP" NURSE ADMINISTERED GEODON [address] PT TOLERATED WELL. CL IN CHAIR AND ACTIVE. WILL REASSES Q 1 HOUR FOR EFFECTIVENESS. WILL CONT TO MONITIOR Q 15 MINS FOR SAFETY.
[2018-07-15 10:15] LABS: FOLATE (FOLIC ACID) - SERUM 9.8 ng/mL (>3.0)
--- NOTE | 2018-07-15 11:30 | NUR ---
Inserted a 16 niuean bull catheter into the patient's bladder, the patient did not have any urine return for a couple of minutes and then it was bloody, will wait for it to clear as Shiela Duckworth APN wants to obtain a new UA and culture. Will encourage fluids when he awakens and monitor the bull tubing to ensure it clears and then obtain the urine.
--- NOTE | 2018-07-15 14:29 | PSY ---
PATIENT NAME:GENESIS HOLLIS MEDICAL RECORD: [id number] : 45 LOCATION:[facility] ADMISSION DATE: 07/13/18 ACCOUNT: [id number] PSYCHIATRIC EVALUATION DATE OF EVALUATION: 07/14/18 IDENTIFYING DATA: The patient is 72 years old and he is admitted from a local retirement because of confusion. CHIEF COMPLAINT: None. HISTORY OF PRESENT ILLNESS: The patient is a very unfortunate man who has had a stroke. He has pretty significant left-sided weakness. Apparently, he has been at the retirement, yelling and cursing at staff. He has been paranoid and saying that the staff are trying to poison him, and for that reason, he will not take his medicines. He has also been observed to have to auditory and visual hallucinations. He currently is almost uninterviewable, just in the angie chair, yelling and speaking incoherently. He is clearly in high degree of distress. PAST MEDICAL HISTORY: Significant for stroke and neuropathy. He also has hypertension, atrial fibrillation, and hyperlipidemia. He has chronic back pain. PAST PSYCHIATRIC HISTORY: Significant for the dementia associated with the stroke. He also has a history of depression, although I do not have details about this. FAMILY HISTORY: Significant for cancer and hypertension. ALLERGIES: PENICILLIN AND CODEINE. CURRENT MEDICATIONS: Include Zofran, Nitrostat, Catapres, Ultracet, Betapace, Eliquis, Colace, Lipitor, aspirin, Effexor, and tramadol. SOCIAL HISTORY: The patient is single. He does have family members involved with his care. I am not sure if he has ever been or if he is . He does not have alcohol history and I do not know about drugs or smoking. He cannot answer those questions right now. MENTAL STATUS EXAMINATION: The patient is awake, alert, and oriented to person only. His mood is anxious. His affect is constricted. Thought processes are very disorganized. Formal memory, concentration, and abstraction abilities could not be tested; but based on inference from the circumstances and observation, I am certain that they are significantly impaired. He does deny that he would seek to harm himself or others. He denies psychotic symptoms, although he had been observed to have them earlier. He is displaying a high degree of distress, but cannot explain what the distress is about. ASSETS: Supportive family members. LIABILITIES: Limited insight. DIAGNOSTIC IMPRESSION: AXIS I: 1. Vascular dementia. 2. Rule out major depression. AXIS II: None. AXIS III: Hypertension, status post stroke, hyperlipidemia, peripheral neuropathy, and PEG tube placement. AXIS IV: Moderate. AXIS V: Global assessment of functioning is 20. PLAN: At this time, the patient is admitted to the hospital secondary to paranoid and agitated behavior associated with vascular dementia. He will be comprehensively evaluated from both medical, psychological, and social standpoint. His long-term prognosis is guarded. TRANSINT:[id number] Voice Confirmation ID: [id number] DOCUMENT ID: [id number] LILI ELMORE MD at 1429 CC: [id number] DICTATION DATE: 07/14/18 151 LOTTERY SALES CLERK: 07/14/18 1616 ADM IN [facility] [address] [place] [address]
--- NOTE | 2018-07-15 15:24 | NUR ---
THE PATIENT AWAKENED AND HE SAID HE WANTED A COKE, SO STAFF GOT HIM A COKE AND HE DID TAKE HIS PYRIDIUM WHOLE. HE TOOK A SIP OF COKE AND SAID "I'D RATHER HAVE A DR. RON." ORDERED HIM A DR. RON WITH HIS EVENING MEAL.
--- NOTE | 2018-07-15 17:00 | NUR ---
The patient is passing blood clots, attempted to get a urine sample, but the urine obtained had so much blood it coagulated. Called Shiela Duckworth APN and let her know we could not get the urine sample before the antibiotic is due. She said to flush the bull catheter until clear and flush the catheter every eight hours.
[2018-07-15 20:53] VITALS: BP 142/90
--- NOTE | 2018-07-15 21:42 | NUR ---
PATIENT IS QUIET, NO PARANOIA NOTED, NO HALLUCINATIONS NOTED. MATIAS WITH VERY BLOOD TINGED URINE NOTED. PATIENT IS NOT SHOWING ANY SIGNS OF PAIN FROM MATIAS. WILL MONITOR
--- NOTE | 2018-07-15 22:39 | NUR ---
IRRIGATED THE MATIAS WITH 30ML OF NORMAL SALINE USING A STERILE SYRINGE AND STERILE TECHNIQUE- OBTAINED MANY LONG CLOTS. PT. TOLERATED WELL, STATED HE FELT RELIEF AFTER THE IRRIGATION. MATIAS HAS 200 ML OF BLOODY URINE AT THIS TIME. WILL CONTINUE TO MONITOR
--- NOTE | 2018-07-15 23:34 | NUR ---
IRRIGATED MATIAS WITH 30ML OF SALINE (STERILE TECHNIQUE) AND NO CLOTS, PATIENT TOLERATED WELL, NOT DRAINING AT THIS TIME. WILL MONITOR.
--- NOTE | 2018-07-16 00:44 | NUR ---
MATIAS HAS DRAINED A MINIMUM AMOUNT, APPROXIMATELY 75 ML. PT. IS RESTING WELL, NO EVIDENCE OF PAIN
--- NOTE | 2018-07-16 09:00 | NUR ---
Offered the patient breakfast, he said "No" but asked him if he would like his banana. He did eat 1/2 of his banana. Offered him fluids, but he declined.
[2018-07-16 09:34] VITALS: BP 122/69
--- NOTE | 2018-07-16 09:45 | NUR ---
X-ray here to take two x-rays, they did assist me to put him in the bed with the renetta lift. Since he is in the bed, did give him a bed bath, did bull care, and peg tube care. Flushed his bull cath and it did flush to clear without clots, but the urine is primarily blood. He is talking, but he is lethargic. Shiela Duckworth APN did assist me to put him back on the renetta lift and bring him back to the dayroom in a angie chair.
--- NOTE | 2018-07-16 10:00 | NUR ---
RECEIVED PATIENT IN DINING ROOM FOR B'FAST, ALERT, QUIET, NO AGGRESSION OR CURSING NOTED AND THIS TIME. REFUSED B'FAST EXCEPT FOR 1/2 NAOMI. MEDS ADMIN PER ORDERS WITH COMPLETE MED COMPLIANCE NOTED. PRESENT FOR GROUP WITH NO PARTICIPATION NOTED. CONT POC INCLUDING MEDS AND GROUP THERAPY DIRECTED.
[2018-07-16 10:21] LABS: BASOPHILS 0.2 % (0-2); EOSINOPHILS 0.1 % (0-7); HEMATOCRIT 42.4 % (42.0-54.0); HEMOGLOBIN 13.9 g/dL (13.5-17.5); IMMATURE GRANULOCYTES 0.3 % (0-5); LYMPHOCYTES 7.4 % (15-50); MCH 30.4 pg (26.0-34.0); MCHC 32.8 g/dL (31.0-37.0); MCV 92.8 fL (80.0-100.0); MEAN PLATELET VOLUME 9.8 fL (7.4-10.4); MONOCYTES 12.8 % (2-11); NEUTROPHILS 79.2 % (40-80); PLATELET COUNT 304 10x3/uL (130-400); RBC 4.57 10x6/uL (4.20-6.10); RDW 14.2 % (11.5-14.5); WBC 14.9 10x3/uL (4.8-10.8)
[2018-07-16 10:34] LABS: ALBUMIN 2.8 g/dL (3.4-5.0); BILIRUBIN - TOTAL 1.33 mg/dL (0.2-1.3); CALCIUM 9.7 mg/dL (8.5-10.1); CARBON DIOXIDE 23.5 mmol/L (21.0-32.0); CREATININE - SERUM 2.6 mg/dL (0.6-1.3); POTASSIUM - SERUM 4.5 mmol/L (3.5-5.1); PROTEIN - SERUM 7.4 g/dL (6.4-8.2)
--- NOTE | 2018-07-16 11:37 | NUR ---
NUTRITION F/U RECEIVED CONSULT RE: POOR PO INTAKE. PT HAD BOLUS FEEDS OSMOLITE 1.5 JEAN DURING PRIOR ADMISSION. 1)RECOMMEND BOLUS 1 CAN OSMOLITE 1.5 JEAN WHEN PT CONSUMES < 50% OF ANY MEAL. 2)50 CC H2O FLUSH BEFORE AND AFTER EACH BOLUS. MAY REQUIRE ADDITIONAL BOLUS IN EVENING IF PO INTAKE REMAINS POOR. RD FOLLOWING
--- NOTE | 2018-07-16 12:00 | NUR ---
Offered the patient his lunch, he is sleeping, said "No" in a mumbled voice.
--- NOTE | 2018-07-16 12:18 | PN ---
PATIENT:GENESIS HOLLIS MEDICAL RECORD: [id number] LOCATION:[facility] ADMISSION DATE: 07/13/18 PROGRESS NOTE DATE OF SERVICE: 07/15/2018 SUBJECTIVE: The patient's case was discussed with staff. He has no new complaint. OBJECTIVE: The patient is not taking his medicines consistently. He is spitting them out. There is clear evidence of significant confusion and he is expressing a high degree of distress with low specificity. For example, I did get him to answer affirmatively that he is in pain, but he says the pain is everywhere, which even with multiple attempts to ask if it was worse in any one place he could not answer. ASSESSMENT: Vascular dementia. PLAN: The patient's prognosis is exceedingly poor. His condition is advanced. If the urinary tract infection that is being treated does not cause some clearing in his cognition, I am not optimistic about his future. It does appear that it is either time or very rapidly approaching time when comfort care and hospice measures should be initiated. I am not clear why he has a PEG tube. I mean, I understand that he had a stroke, but at the snf he is on a regular diet and takes his medicines orally. I do not know if that tube is still functional, but if it is it may be necessary to give him food, water and medicine through it until we can get a better handle on exactly what his prognosis and baseline level is. TRANSINT:[id number] Voice Confirmation ID: [id number] DOCUMENT ID: [id number] LILI ELMORE MD at 1218 CC: [id number] DICTATION DATE: 07/15/18 1554 PARKING LOT CHAUFFEUR: 07/16/18 0059 ADM IN [facility] [address] [id number]
--- NOTE | 2018-07-16 13:10 | NUR ---
ENTERED THE ROOM AND THE PATIENT AND THE PATIENT WAS SHAKING, SEIZURE LIKE MOVEMENTS. DID CALL A RAPID RESPONSE THE POATIENT IS NOT RESPONSIVE AND HIS EYES ARE OPEN WITH NO RESPONSE TO HIS PUPILS. CALLED A RAPID RESPONSE GOT HIS VITAL SIGNS, THE RAPID TEAM RESPONDED AND TOOK OVER CARE FROM THERE.
--- NOTE | 2018-07-16 13:15 | NUR ---
NURSE REPORTED THAT PATIENT WAS HAVING SEIZURE-LIKE ACTIVITY, SHAKING, JERKING ARMS, PUPILS 3 MM AND FIXED, RAPID RESPONSE CALLED.
--- NOTE | 2018-07-16 13:38 | NUR ---
CALLED THE PATIENTS DAUGHTER AND LET HER KNOW THE PATIENT HAD A CHANGE IN MENTAL STATUS AND HE IS HAVING TESTS AND WILL BE GOING TO ICU.
[2018-07-16 13:44] LABS: APPEARANCE TURBID (CLEAR); COLOR RED (YELLOW)
--- NOTE | 2018-07-16 13:45 | NUR ---
Called Dr. Leiva and let him know that we called a rapid response for the patient and the recommendation is for the patient to go to ICU per Dr. Villa and the rapid team. He says he will put the d/c orders in.
--- NOTE | 2018-07-16 13:45 | NUR ---
PATIENT DISCHARGED FROM UNIT AND SENT TO ER THEN ON TO ICE FOR EVALUATION. BELONGINGS AND DISCHARGE PAPERWORK SENT TO ICU.
[2018-07-16 13:47] LABS: EPITHELIAL CELLS 0-5 /hpf (0-5); RED CELLS - URINE >50 /hpf (0-5)
--- NOTE | 2018-07-16 14:00 | NUR ---
Lab called and said "the patient's urine is going for micro only and it is blood".
[2018-07-16] MEDS ORDERED: ROCEPHIN 1 GM/D51 G1 IM (14:11)
[2018-07-16] MEDS ORDERED: IPRAT-ALBUT 0.5-3 ML INH (14:12)
[2018-07-16] MEDS ORDERED: FLORAJEN3 CAPS460 MG PO (14:13)
[2018-07-16 14:39] LABS: CKMB 3.7 U/L (0.0-3.6); CREATINE KINASE 377 UL (21-232); TROPONIN-I 0.021 ng/mL (0.000-0.060)
--- NOTE | 2018-07-17 10:12 | PN ---
PATIENT:GENESIS HOLLIS MEDICAL RECORD: [id number] LOCATION:[facility] ADMISSION DATE: 07/13/18 PROGRESS NOTE DATE OF SERVICE: 07/16/2018 SUBJECTIVE: The patient's case was discussed with staff. He has no new complaint. OBJECTIVE: The patient surprisingly has a BUN of only 26 and a creatinine of 2.6 given the fact that he has not eaten at all, this is curious. ASSESSMENT: Vascular dementia. PLAN: The patient is screening less, I think this may have to do with the treatment of his urinary tract infection. He is also getting a scheduled dose of Klonopin that I think is helping to calm him somewhat. I am going to start him on a low dose of Namenda to assist with his thought disorganization. He will be monitored for clinical changes associated with its use. His long-term prognosis is guarded, and clearly if he does not start eating and drinking there is major issue head. TRANSINT:[id number] Voice Confirmation ID: [id number] DOCUMENT ID: [id number] LILI ELMORE MD at 1012 CC: [id number] DICTATION DATE: 07/16/18 1234 DIAMOND CLEANER: 07/16/18 1328 DIS IN 07/16/18 [id number] [place] [address]
== END 2018-07-16 13:45 | disposition short-term general hospital (02) | DRG 57 ==
LOC: D.PSYCH 16:30
PROVIDERS: Family Medicine; ADMIT Psychiatry & Neurology Psychiatry; ATTEND Psychiatry & Neurology Psychiatry
DX: I69.319 Unspecified symptoms and signs involving cognitive functions following cerebral infarction (principal); F01.51 Vascular dementia, unspecified severity, with behavioral disturbance; I69.354 Hemiplegia and hemiparesis following cerebral infarction affecting left non-dominant side; R45.851 Suicidal ideations; N17.9 Acute kidney failure, unspecified; F32.9 Major depressive disorder, single episode, unspecified; I10 Essential (primary) hypertension; Z74.09 Other reduced mobility; E78.5 Hyperlipidemia, unspecified; E53.8 Deficiency of other specified B group vitamins; E55.9 Vitamin D deficiency, unspecified; K21.9 Gastro-esophageal reflux disease without esophagitis; I20.9 Angina pectoris, unspecified; N30.91 Cystitis, unspecified with hematuria

== ENCOUNTER 2018-07-16 13:48 | Inpatient (IN) | payer MEDICARE ==
[2018-07-16] VITALS (13 sets, daily range): BP systolic 117–182; BP diastolic 67–103; BMI 27.5
[2018-07-16] MEDS ORDERED: ROCEPHIN 1 GM/D51 G1 IM (14:11)
[2018-07-16] MEDS ORDERED: IPRAT-ALBUT 0.5-3 ML INH (14:12)
[2018-07-16] MEDS ORDERED: FLORAJEN3 CAPS460 MG PO (14:13)
--- NOTE | 2018-07-16 14:46 | NUR ---
IV TO RIGHT WRIST X 5 ATTEMPTS.
--- NOTE | 2018-07-16 16:19 | NUR ---
BLADDER SCANNER SHOWS 377ML PRESENT IN BLADDER, PLACING A COUDET 16FR.
--- NOTE | 2018-07-16 17:58 | NUR ---
EKG DONE, PREOPS GIVEN, PATIENT IN ROUTE TO OR VIA OR STAFF X3
--- NOTE | 2018-07-16 18:31 | NUR ---
CENTRAL LINE PLACED BY JOCELYNE SEXTON CRNA
--- NOTE | 2018-07-16 18:32 | NUR ---
VANC 1.25GM NOT AVAILABLE FROM Rx, ORDRE RECD. FOR ONE GRAM NOW THEN Rx TO REDOSE IN AM.
--- NOTE | 2018-07-16 19:00 | NUR ---
ARRIVED TO UNIT FROM SURGERY, STAFF ESCORTED. VSS UPON ARRIVAL. SHIFT ASSESSMENT COMPLETE, PLEASE SEE FLOW SEE FLOW SHEETS FOR DETAILS. BED LOW AND LOCKED, CALL LIGHT IN REACH. ALARM ON. WILL CONTINUE PLAN OF CARE.
--- NOTE | 2018-07-16 20:29 | NUR ---
per radiologist, ok to use cvl
--- NOTE | 2018-07-16 21:00 | NUR ---
FAMILY IN ROOM, UPDATE PROVIDED. TURNING PROVIDED. VSS, BED LOW AND LOCKED, CALL LIGHT IN REACH. WILL CONTINUE PLAN OF CARE.
--- NOTE | 2018-07-16 22:51 | NUR ---
Reassessment complete, please see flow sheets for details. Some improvement to cognitive level. VSS. Bed low and locked, call light in reach. Alarm on. Will continue plan of care.
[2018-07-17] VITALS (24 sets, daily range): BP systolic 111–169; BP diastolic 63–113
--- NOTE | 2018-07-17 01:00 | NUR ---
RESTING. VSS. BED LOW AND LOCKED. ALARM ON. CALL LIGHT IN REACH. WILL CONTINUE PLAN OF CARE.
--- NOTE | 2018-07-17 02:46 | NUR ---
REASSESSMENT COMPLETE, PLEASE SEE FLOW SHEETS FOR DETAILS. VSS. BED LOW AND LOCKED, CALL LIGHT IN REACH. TURNING PROVIDED. BED ALARM ON. WILL CONTINUE PLAN OF CARE.
[2018-07-17 03:27] LABS: BASOPHILS 0.1 % (0-2); EOSINOPHILS 0.1 % (0-7); HEMATOCRIT 37.4 % (42.0-54.0); HEMOGLOBIN 12.2 g/dL (13.5-17.5); IMMATURE GRANULOCYTES 0.3 % (0-5); LYMPHOCYTES 7.1 % (15-50); MCH 30.2 pg (26.0-34.0); MCHC 32.6 g/dL (31.0-37.0); MCV 92.6 fL (80.0-100.0); MEAN PLATELET VOLUME 9.6 fL (7.4-10.4); MONOCYTES 16.8 % (2-11); NEUTROPHILS 75.6 % (40-80); RBC 4.04 10x6/uL (4.20-6.10)
[2018-07-17 03:33] LABS: PLATELET COUNT 215 10x3/uL (130-400); WBC 9.1 10x3/uL (4.8-10.8)
[2018-07-17 03:44] LABS: ALBUMIN 2.4 g/dL (3.4-5.0); ANION GAP 11.9 mmol/L (8-16); BILIRUBIN - TOTAL 0.93 mg/dL (0.2-1.3); CARBON DIOXIDE 27.8 mmol/L (21.0-32.0); MAGNESIUM - SERUM 2.1 mg/dL (1.8-2.4); PHOSPHOROUS 2.8 mg/dL (2.5-4.9); PROTEIN - SERUM 6.7 g/dL (6.4-8.2)
[2018-07-17 03:48] LABS: POTASSIUM - SERUM 3.7 mmol/L (3.5-5.1)
--- NOTE | 2018-07-17 03:54 | NUR ---
PATIENT WOKE WITH XRAY IN ROOM. OPENS EYES, FOLLOWS COMMANDS. SOME WORDS INCOMPREHENSIBLE. CAN STATE NAME, MONTH AND DAY. MOVING RIGHT SIDE EXTREMITIES. SAYS "YES" TO PAIN IN 'PRIVATE AREA' AFTER SAYING "OW, OW". INDICATED LEFT ARM PAIN, INSPECTED UNDER BLOOD PRESSURE CUFF, RED AREA - RAISED - WARM TO TOUCH, MONITORING THIS, WILL NOTIFY .
--- NOTE | 2018-07-17 04:16 | NUR ---
PAGED DR CUMMINGS.
--- NOTE | 2018-07-17 04:22 | NUR ---
DR CUMMINGS RETURNED CALL. GAVE UPDATE. ORDERS RECIEVED.
--- NOTE | 2018-07-17 05:00 | NUR ---
PER ORDERS, PROVIDED PATIENT WITH WATER TO SIP AND COULD NOT DRAW WATER THROUGH STRAW. THEN ATTEMPTED ICE CUBES, WAS UNABLE TO SWALLOW EFFECTIVELY. HOLDING ALL PO. PROVIDED CHLORHEXADINE BATH, FACIAL GROOMING, AND MATIAS CARE. DRAIN SPONGE AROUND MATIAS INSERTION SITE REPLACED. RESTING POST ACTIVITY. VSS. BED LOW AND LOCKED, CALL LIGHT IN REACH. BED ALARM ON. WILL CONTINUE PLAN OF CARE.
--- NOTE | 2018-07-17 09:33 | OP ---
PATIENT NAME: GENESIS HOLLIS MEDICAL RECORD: [id number] :45 LOCATION:.[facility] D.2306 ADMISSION DATE:07/16/18 SURGEON: DANIEL IBARRA MD DATE OF OPERATION: 07/16/2018 SURGEON: Daniel Ibarra MD ANESTHESIA: TIVA by Fidelia Melgar CRNA. DIAGNOSES: Traumatic Thomas catheter insertion with bulbar urethral perforation, urinary retention. PROCEDURES: Cystoscopy, insertion of a Thomas catheter over a guidewire. FINDINGS: Bulbar urethral perforation due to Thomas catheter balloon inflation in the bulbar urethra. The patient has had a previous TURP and the prostatic urethra and bladder neck are wide open. ESTIMATED BLOOD LOSS: None. SPECIMENS: None. CLINICAL HISTORY: This is a 72-year-old male, who has had multiple strokes in the past. He was admitted to hospital because of agitated behavior. He was in the snf guerrero here in the hospital. He became more obtunded and the floor nurses attempted to insert a Thomas catheter. He is now transferred to the ICU with the presumption of septic shock. His bladder scan shows a bladder volume of almost 400 mL and he is not able to void. Furthermore, there is a lot of blood and clots coming out of the urethra. The ICU nurse has tried with a coude catheter and they were unsuccessful in getting a Thomas catheter in. Therefore, they asked for urology consultation. I am going to put a catheter in using a cystoscope for direct vision. HE IS ALLERGIC TO PENICILLIN. He was given Levaquin IV on-call to the OR. DESCRIPTION OF PROCEDURE: The patient was given IV sedation. He was placed in the dorsal lithotomy position. We placed lidocaine jelly into the urethra. A 21-East Timorese cystoscope with 30-degree lens was used for visualization. There are no urethral strictures. Going into the bulbar urethral area, I noticed a quite traumatic perforation, which is fresh as evidenced by fresh bleeding from the site. The actual urethra was anterior to the site of the bulbar urethral perforation. I managed to pass the scope in to the true urethral lumen and then into the prostatic urethra. The prostate has been widely resected in the past. The bladder neck is not stenotic. There was no difficulty getting into the bladder. A Sensor wire was placed into the bladder under direct vision. The scope was then removed, leaving the wire in place. Over the wire, a 16-East Timorese morongo tip Thomas catheter was inserted. Once the catheter was fully in the bladder, the balloon was inflated with 10 cc of sterile water. The wire was removed entirely. We then put the catheter to bag drainage. The ICU has also requested that anesthesia place a central line and therefore Fidelia Melgar CRNA will proceed with central line insertion. TRANSINT:[id number] Voice Confirmation ID: [id number] DOCUMENT ID: [id number] OPERATIVE REPORT [id number] GENESIS HOLLIS, DANIEL Denson MD at 0933 CC: [id number] DICTATION DATE: 07/16/181826 MARKET RESEARCHER: 07/17/18 0442 ADM IN [facility] [address] [id number]
--- NOTE | 2018-07-17 13:44 | NUR ---
COMPLETE HIBICLEANSE BATH COMPLETED. PATIENT EVIDENTLY HAS A VERY COLORFUL PERSONALITY THAT IS CURRENTLY BLOSSOMING. PLACING DEODERANT TO ARM PIT AREAS, PATIENT STATED, "DON'T BE SO ROUGH." NURSE STATED,"I'M JUST PLACING DEODERANT TO YOUR ARM PITS." PATIENT THEN STATED, "OH, KISS MY ASS." PATIENT DOES MAKE A FIST WITH THE RIGHT HAND AND SHAKES IT, BUT HAS NOT ACTUALLY PRODUCED A THREATNENING ACTION.
--- NOTE | 2018-07-17 19:01 | NUR ---
REPORT RECEIVED, CARE ASSUMED. PT IS RESTING IN BED WITH EYES OPEN AT THIS TIME. PT REPOSITIONED FOR COMFORT. PT DENIES FURTHER NEEDS AT THIS TIME, NO NEEDS NOTED. WILL CONTINUE TO MONITOR.
--- NOTE | 2018-07-17 21:01 | NUR ---
PT IS LAYING IN BED WITH EYES CLOSED AT THIS TIME. PT REPOSITIONED FOR COMFORT. NO SIGNS OF ACUTE DISTRESS. WILL CONTINUE TO MONITOR.
--- NOTE | 2018-07-17 23:02 | NUR ---
REASSESSMENT COMPLETED, SEE FLOWSHEET FOR DETAILS. PT IS RESTING IN BED WITH EYES CLOSED. PT REPOSITIONED FOR COMFORT. NO SIGNS OF ACUTE DISTRESS NOTED AT THIS TIME. WILL CONTINUE TO MONITOR.
[2018-07-18] VITALS (16 sets, daily range): BP systolic 127–177; BP diastolic 51–115; BMI 27.8
--- NOTE | 2018-07-18 01:02 | NUR ---
PT IS RESTING IN BED WITH EYES CLOSED AT THIS TIME. PT REPOSITIONED FOR COMFORT. ORAL CARE PERFORMED. NO SIGNS OF ACUTE DISTRESS. WILL CONTINUE TO MONITOR.
--- NOTE | 2018-07-18 03:03 | NUR ---
REASSESSMENT COMPLETED, SEE FLOWSHEET FOR DETAILS. PT REPOSITIONED FOR COMFORT. PT IS RESTING IN BED WITH EYES CLOSED AT THIS TIME. NO SIGNS OF ACUTE DISTRESS. WILL CONTINUE TO MONITOR.
[2018-07-18 04:03] LABS: BASOPHILS 0.4 % (0-2); EOSINOPHILS 2.4 % (0-7); HEMOGLOBIN 11.3 g/dL (13.5-17.5); IMMATURE GRANULOCYTES 0.3 % (0-5); LYMPHOCYTES 16.2 % (15-50); MCH 30.4 pg (26.0-34.0); MCHC 32.3 g/dL (31.0-37.0); MCV 94.1 fL (80.0-100.0); MEAN PLATELET VOLUME 9.7 fL (7.4-10.4); MONOCYTES 16.7 % (2-11); RBC 3.72 10x6/uL (4.20-6.10); RDW 13.9 % (11.5-14.5); WBC 7.5 10x3/uL (4.8-10.8)
[2018-07-18 04:13] LABS: BILIRUBIN - TOTAL 0.48 mg/dL (0.2-1.3); CALCIUM 8.5 mg/dL (8.5-10.1); CARBON DIOXIDE 31.2 mmol/L (21.0-32.0); POTASSIUM - SERUM 3.2 mmol/L (3.5-5.1); PROTEIN - SERUM 5.8 g/dL (6.4-8.2)
[2018-07-18 04:14] LABS: CREATININE - SERUM 1.2 mg/dL (0.6-1.3)
[2018-07-18 04:19] LABS: PLATELET COUNT 160 10x3/uL (130-400)
--- NOTE | 2018-07-18 05:03 | NUR ---
PT IS RESTING IN BED WITH EYES CLOSED. PT REPOSITIONED FOR COMFORT. NO NEEDS NOTED AT THIS TIME. NO SIGNS OF ACUTE DISTRESS. WILL CONTINUE TO MONITOR.
--- NOTE | 2018-07-18 09:07 | NUR ---
PATIENT IS MUCH MORE ALERT AND APPROP. THIS AM. REMAINS CONFUSED TO SITUATION AND TIME. LEFT ARM AREA OF EDEMA AND HEAT IS MUCH BETTER TODAY, NOT AT RED OR EDEMATOUS AND NO NOTED HEAT FROM AREA TODAY.
--- NOTE | 2018-07-18 15:31 | NUR ---
PT ARRIVED TO UNIT FROM ICU A TRANSFER. QUICK START COMPLETED. PT IS VERY PLEASANTLY CONFUSED. ALERT TO PERSON, BUT NOT TIME OR PLACE OR SITUATION. PT HAS A MATIAS IN PLACE R/T RETENTION DRAINING CLEAR YELLOW URINE WITH STAT LOCK SECURED TO R.INNER THIGH. PT NEEDS TELEMETRY WILL OBTAIN FROM [facility]. RR NONLABORED ON RA. PT C/O BEING THIRSTY AND HUNGRY, CURRENTLY NPO UNTIL SPEECH EVALUATION. PAGED MARIOLA LIMA, AND HE IS AWARE AND WILL COME ASSESS PT SHORTLY. PT VOICED THANKS AND IS EXCITED TO GET IT OVER WITH. PLACED PILLOW BETWEEN KNEES TO KEEP THEM FROM RUBBING. BILAT HEELS SLIGHTLY REDDENED AND BOGGY BRIDGED HEELS AND PLACED ON PILLOW. CONNECTED PT TO HIS FLUIDS @100ML/HR ORDERED ALONG WITH INTERMITT. ANBX VIA R.IJ CVL. THIS IS A TRIPLE LUMEN ALL LUMENS FLUSH AND HAVE GOOD BLOOD RETURN. BIOPATCH CDI, DRSG CDI, AND SWAB CAPS IN PLACE. WILL CTM.
--- NOTE | 2018-07-18 19:31 | NUR ---
ROUNDS COMPLETED. PT CONFUSED. VSS. FOUND PT TALKING TO HIMSELF, HE STATES "MY NEPHEW IS HERE IN THE ROOM AND HE WANTS TO TAKE ME HOME". DRESSING TO [facility] C/D/I. DS1/2NS INFUSING WITH INTERMITTENT ATBX. LEGS APPEARS SWOLLEN. PT CURRENLTY RESTING IN BED, NO S/S OF RR DISTRESS. BED ALARM ON. WILL CTM.
[2018-07-19] VITALS: BP 162/83
--- NOTE | 2018-07-19 03:00 | NUR ---
PT RESTING IN BED. C/O OF ARM HURTING. HELP REPOSITION PT IN BED. PT STATES HE FEELS A LOT BETTER NOW. PT VOICED THANK. WILL CTM.
[2018-07-19 04:00] VITALS: BP 180/87
[2018-07-19 07:47] VITALS: BP 177/75
[2018-07-19 12:18] VITALS: BP 147/75
--- NOTE | 2018-07-19 14:15 | NUR ---
SPOKE WITH DR. CUMMINGS ABOUT DISCHARGE BACK TO SR CARE.DR. CUMMINGS SAID PT DOES NOT NEED TO GO BACK TO SR. CARE. PSCHY ISSUES HAVE RESOLVED. PT IS TO STAY INPT FOR IV ANTIBIOTICS.
--- NOTE | 2018-07-19 19:18 | NUR ---
PATIENT LAYING IN BED. NO COMPLAINTS AT THIS TIME. NO DISTRESS NOTED.
[2018-07-19 19:26] VITALS: BP 153/85
[2018-07-19 20:00] VITALS: BP 144/84
--- NOTE | 2018-07-19 23:19 | NUR ---
PATIENT LAYING IN BED, EYES CLOSED, CHEST RISING AND FALLING. NO DISTRESS NOTED.
[2018-07-20] VITALS: BP 140/88
--- NOTE | 2018-07-20 00:05 | NUR ---
PATIENT PULLED RIGHT IJ DRESSING OFF. NEW DRESSING APPLIED PER PROTOCOL.
--- NOTE | 2018-07-20 01:45 | NUR ---
PATIENT LAYING IN BED. NO DISTRESS NOTED. NO COMPLAINTS AT THIS TIME.
[2018-07-20 04:00] VITALS: BP 166/74
--- NOTE | 2018-07-20 04:33 | NUR ---
PATIENT LAYING IN BED, EYES CLOSED, CHEST RISING AND FALLING. NO DISTRESS NOTED.
--- NOTE | 2018-07-20 07:40 | NUR ---
RESUMING PT CARE, PT LAYING IN BED WITH EYES CLOSED, RESPIRATIONS EVEN AND UNLABORED. CALL LIGHT IN REACH, WILL CONTINUE TO MONITOR AND FOLLOW PLAN OF CARE.
[2018-07-20 09:16] LABS: BASOPHILS 0.2 % (0-2); EOSINOPHILS 5.5 % (0-7); HEMATOCRIT 33.9 % (42.0-54.0); IMMATURE GRANULOCYTES 0.5 % (0-5); LYMPHOCYTES 26.6 % (15-50); MCH 29.8 pg (26.0-34.0); MCHC 32.4 g/dL (31.0-37.0); MCV 91.9 fL (80.0-100.0); MEAN PLATELET VOLUME 10.2 fL (7.4-10.4); MONOCYTES 19.5 % (2-11); NEUTROPHILS 47.7 % (40-80); PLATELET COUNT 185 10x3/uL (130-400); RBC 3.69 10x6/uL (4.20-6.10); RDW 13.2 % (11.5-14.5); WBC 5.6 10x3/uL (4.8-10.8)
[2018-07-20 09:21] VITALS: BP 156/80
[2018-07-20 09:34] LABS: CALC OSMOLALITY 282 mosm/kg (275-300); CALCIUM 8.3 mg/dL (8.5-10.1); CARBON DIOXIDE 30.6 mmol/L (21.0-32.0); CHLORIDE - SERUM 107 mmol/L (98-107); CREATININE - SERUM 0.9 mg/dL (0.6-1.3); GLUCOSE 108 mg/dL (74-106); SODIUM 143 mmol/L (136-145); UREA NITROGEN 5 mg/dL (7-18); eGFR NON AFRICAN AMERICAN 88 mL/min (90-120)
[2018-07-20 09:39] LABS: POTASSIUM - SERUM 2.7 mmol/L (3.5-5.1)
--- NOTE | 2018-07-20 09:51 | NUR ---
I have reviewed this patient and I concur with the Shift Assessment completed by the Licensed Practical Nurse today this shift.
--- NOTE | 2018-07-20 12:06 | NUR ---
PT REQUEST PAIN MED FOR BACK PAIN, NORCO WAS ON HOLD. I SPOKE WITH DR CUMMINGS'S NURSE RYAN AND SHE ASKED DR CUMMINGS, NEW ORDER TO RESUME THE NORCO 5/325 Q 4 HOUR PRN. ORDER NOTED.
[2018-07-20 12:07] VITALS: BP 153/85
--- NOTE | 2018-07-20 12:46 | NUR ---
ELECTROLYTE PROTOCOL K + TREATED, LAST DOSE WILL BE AT 1400, LABS ORDERED FOR 1800 TO RECHECK AND WILL ASLO RECHECK WITH AM LABS.
--- NOTE | 2018-07-20 13:20 | NUR ---
Nutrition follow-up: Diet: Regular mechanical soft with honey thick liquids PO intake ~25% average at meals labs reviewed Wt: 200# Pt with PEG tube in place. If po intake remains poor recommend supplementing with bolus feeds of 1 can Jevity 1.2 camilo if po intake < 50 % of meals. RDN following.
--- NOTE | 2018-07-20 14:00 | NUR ---
BED BATH GIVEN BY HEAD OF IT'A, DRESSING APPLIED TO PEG TUBE AND DRESSING CHANGE DONE TO RIGHT IJ CENTRAL LINE. CALL LIGHT IN REACH, WILL CONTINUE TO MONITOR.
[2018-07-20 15:57] VITALS: BP 176/71
--- NOTE | 2018-07-20 19:32 | NUR ---
PATIENT LAYING IN BED. PATIENT IS CONFUSEDX3. NO DISTRESS NOTED. NO COMPLAINTS AT THIS TIME.
[2018-07-20 20:00] VITALS: BP 150/96
--- NOTE | 2018-07-20 22:30 | NUR ---
PATIENT PULLED DRESSING FROM RIGHT IJ OFF. NEW DRESSING APPLIED PER PROTOCOL.
--- NOTE | 2018-07-20 23:00 | NUR ---
PATIENT LAYING IN BED. NO DISTRESS NOTED. NO COMPLAINTS AT THIS TIME.
--- NOTE | 2018-07-21 00:45 | NUR ---
ELECTOLYTE PROTOCOL K+ TREATED. LAST DOSE GIVEN AT 0044. LABS ORDERED TO RECHECK AT 0230 AND AM LABS.
--- NOTE | 2018-07-21 02:16 | NUR ---
PATIENT LAYING IN BED. NO COMPLAINTS AT THIS TIME. NO DISTRESS NOTED.
[2018-07-21 02:26] LABS: CALC OSMOLALITY 276 mosm/kg (275-300); CALCIUM 8.3 mg/dL (8.5-10.1); CARBON DIOXIDE 29.4 mmol/L (21.0-32.0); CHLORIDE - SERUM 105 mmol/L (98-107); CREATININE - SERUM 0.9 mg/dL (0.6-1.3); GLUCOSE 88 mg/dL (74-106); POTASSIUM - SERUM 3.5 mmol/L (3.5-5.1); SODIUM 141 mmol/L (136-145); UREA NITROGEN 5 mg/dL (7-18); eGFR NON AFRICAN AMERICAN 88 mL/min (90-120)
--- NOTE | 2018-07-21 03:38 | NUR ---
PATIENT LAYING IN BED, EYES CLOSED, CHEST RISING AND FALLING. NO DISTRESS NOTED.
[2018-07-21 04:00] VITALS: BP 150/76
--- NOTE | 2018-07-21 06:18 | NUR ---
PATIENT LAYING IN BED, EYES CLOSED, CHEST RISING AND FALLING. NO DISTRESS NOTED.
[2018-07-21 08:15] VITALS: BP 163/91
[2018-07-21 13:09] VITALS: BP 162/78
[2018-07-21 15:21] VITALS: BP 144/70
--- NOTE | 2018-07-21 19:25 | NUR ---
AWAKE AND CONFUSED TO PLACE AND SITUATION. BED IS LOW AND LOCKED CALL LIGHT IN REACH TAPE ADDED TO RT IJ TO HELP SECURE DRSG.. LCTA SKIN WARM AND DRY
[2018-07-21 20:05] VITALS: BP 129/62
[2018-07-22] VITALS: BP 150/68
--- NOTE | 2018-07-22 03:18 | NUR ---
I have reviewed this patient and I concur with the Shift Assessment completed by the Licensed Practical Nurse today this shift.
[2018-07-22 04:00] VITALS: BP 178/70
[2018-07-22 07:56] VITALS: BP 179/89
--- NOTE | 2018-07-22 09:13 | NUR ---
ALERT AND ORIENTED TO SELF AND PLACE ONLY WITH FALL RISK PRECAUTIONS IN PLACE. IVF INFUSING IN RT. IJ W/O ANY S/S OF INFECTION/ INFILTRATION. REQUIRES ASSIST FEEDING. MATIAS CATH INTACT WELL TELEMETRY. LORTAB GIVEN FOR GENERALIZED BACK PAIN AND EFFECTIVE.
--- NOTE | 2018-07-22 10:55 | MORECARE ---
CASE MANAGEMENT DISCHARGE SUMMARY PATIENT: GENESIS HOLLIS UNIT: [id number] ADM DATE: 07/16/18 AGE: 72 : 45 SEX: M ROOM/BED: D.2105 AUTHOR: MATT GARCIA PHYSICIAN: REFERRING PHYSICIAN: IRMA CUMMINGS MD DATE OF SERVICE: 07/22/18 Discharge Plan Patient Name: GENESIS HOLLIS [facility] [facility] 1945 Planned Disposition: Nursing Facility [facility] Cert Anticipated Discharge Date: Discharge Date: Expected LOS: Initial Reviewer: [email or web address] Initial Review Date: 07/22/2018 Generated: 07/22/18 11:55 am DCPIA - Discharge Planning Initial Assessment Updated by [id number]: Carlos Orosco on 07/22/18 10:54 am * Is the patient Alert and Oriented? Yes * How many steps to enter\exit or inside your home? NONE * PCP DR. CUMMINGS * [facility] * Preadmission Environment [facility] * Facility Name [facility] * ADLs Total Dependent * Equipment Other * Other Equipment ALL MEDICAL EQUIPMENT PROVIDED BY FACILITY * List name and contact numbers for known caregivers / representatives who currently or will assist patient after discharge: HUDSON WOODWARD, FRIEND, MALGORZATA PRICE, FRIEND, * Verbal permission to speak to the caregivers and representatives has been obtained from the patient. No * Community resources currently utilized None * Please name any agencies selected above. NONE * Additional services required to return to the preadmission environment? No * Can the patient safely return to the preadmission environment? Yes * Has this patient been hospitalized within the prior 30 days at any hospital? Yes Patient Name: GENESIS HOLLIS Page [id number] at 1055 All edits/amendments must be made on the electronic document DICTATION DATE: 07/22/18 1055 BARREL CENTERER: JONNY 07/22/18 1055 RPT#: [id number] DC DATE: STATUS: ADM IN [facility] [address] [place] [address] END OF REPORT
--- NOTE | 2018-07-22 11:11 | MORECARE ---
CASE MANAGEMENT DISCHARGE SUMMARY PATIENT: GENESIS HOLLIS UNIT: [id number] ADM DATE: 07/16/18 AGE: 72 : 45 SEX: M ROOM/BED: D.2105 AUTHOR: JOSE,DOC PHYSICIAN: REFERRING PHYSICIAN: IRMA CUMMINGS MD DATE OF SERVICE: 07/22/18 Discharge Plan Patient Name: GENESIS HOLLIS Facility[facility]:[place] : 1945 Planned Disposition: Nursing Facility [facility] Cert Anticipated Discharge Date: Discharge Date: Expected LOS: Initial Reviewer: [email or web address] Initial Review Date: 07/22/2018 Generated: 07/22/18 12:11 pm Comments DCP- Discharge Planning Updated by [id number]: Carlos Orosco on 07/22/18 10:[address] Patient Name: GENESIS HOLLIS Admission Status: Elective Accout number: [id number] Admission Date: 07-16-2018 : 1945 Admission Diagnosis:SEPSIS, UNSPECIFIED ORGANISM Attending: IRMA CUMMINGS Current LOS: 6 Anticipated DC Date: Planned Disposition: Nursing Facility [facility] Cert Primary Insurance: MEDICARE A & B PLANNED EXTERNAL PROVIDER: [facility] MEDICAID BED Discharge Planning Comments: CM HEARD PT CONTINUALLY YELLING "HELP" FROM ROOM. CM MET WITH PT IN ROOM AND ASKED WHAT PT NEEDS HELP WITH. PT STATES HE DOES NOT KNOW. CM ASKED TO DISCUSS DISCHARGE PLANNING AND NEEDS. PT REPORTS LIVING AT HOME INDEPENDENTLY AND ALONE ABOUT THREE MILES FROM HERE. CM ASKED PT WHERE HE IS AT NOW, PT STATES HOSPITAL AND I'M TIRED OF BEING HERE. . PT REPORTS HAVING NO MEDICAL EQUIPMENT AND NO OUTSIDE SERVICES ASSISTING IN THE HOME. CM DISCUSSED CARE HOME CARE PT'S CHART INDICATES PT BEING FROM LOCAL CARE HOME. PT STATES THAT HE IS STAYING AT [facility] AND HAD BEEN GETTING REHAB THERE. PT STATES HE IS GOING BACK THERE FROM THE HOSPITAL AND WANTS TO GO NOW. CM EXPLAINED THAT THE DOCTOR NEEDS TO DISCHARGE HIM WHEN STABLE TO RETURN TO [facility]. PT REPORTS UNDERSTANDING. CM EXPLAINED CALL LIGHT USE FOR ASSISTANCE. PT STATES IT DOES NOT WORK. CM DEMONSTRATED HOW TO PUSH THE BUTTON AND IT DID WORK . PT STATES HE WILL JUST CALL OUT FOR HELP WHEN HE NEEDS IT. PT CHOICE WAS NOT SIGNED BY PT HE STATES HE CANNOT, CHOICE COMPLETED. JENNIFER SPOKE TO CURRY OF [facility] AT NURSES STATION, CURRY REPORTS PT IS IN [facility] AT [facility] AND THEY WILL ACCEPT BACK FOR CONTINUED CARE AT DISCHARGE. CM FAXED HOSPITAL UPDATE TO [facility] AT [phone]. FOR DISCHARGE BACK TO JAIL CARE AT [facility], FAX DISCHARGE INFORMATION TO [phone]. NURSE REPORT TO BE CALLED TO [facility] AT [phone]. PT TO TRANSPORT VIA AMBULANCE. Metal Template Maker: Carlos Orosco DCPIA - Discharge Planning Initial Assessment Updated by [id number]: Carlos Orosco on 07/22/18 10:54 am * Is the patient Alert and Oriented? Yes * How many steps to enter\\exit or inside your home? NONE * PCP DR. CUMMINGS * Pharm[facility] * Preadmission Environment [facility] * Facility Name [facility] * ADLs Total Dependent * Equipment Other * Other Equipment ALL MEDICAL EQUIPMENT PROVIDED BY FACILITY * List name and contact numbers for known caregivers / representatives who currently or will assist patient after discharge: HUDSON WOODWARD, FRIEND, MALGORZATA PRICE, FRIEND, * Verbal permission to speak to the caregivers and representatives has been obtained from the patient. No * Community resources currently utilized None * Please name any agencies selected above. NONE * Additional services required to return to the preadmission environment? No * Can the patient safely return to the preadmission environment? Yes * Has this patient been hospitalized within the prior 30 days at any hospital? Yes External Providers [facility] Next Contact Date: 07/22/2018 Service Request Date: Service Type: Resolution: Reviewer: Comments: Last DP export: 07/22/18 9:55 am Patient Name: GENESIS HOLLIS Page [phone] at 1111 All edits/amendments must be made on the electronic document DICTATION DATE: 07/22/18 1111 QA TECH: JONNY 07/22/18 1111 RPT#: [id number] DC DATE: STATUS: ADM IN [facility] [address] [place] [address] END OF REPORT
[2018-07-22 12:20] VITALS: BP 196/104
[2018-07-22 15:56] VITALS: BP 132/108
--- NOTE | 2018-07-22 19:28 | NUR ---
RECEIVED REPORT, WILL ASSUME CARE OF PT, SLEEPING, NO DISTRESS NOTICE AT THIS TIME, BED IS LOW, SRX2, CALL LIGHT IN REACH, WILL CONTINUE PLAN OF CARE
[2018-07-22 20:00] VITALS: BP 136/89
[2018-07-23] VITALS: BP 132/71
--- NOTE | 2018-07-23 00:14 | NUR ---
COMPLAINS OF PAIN, GAVE NORCO ORDERED, ASSISTED CORE DROPPER WITH CHANGING PT
[2018-07-23 03:00] VITALS: BP 140/71
--- NOTE | 2018-07-23 03:35 | NUR ---
I have reviewed this patient and I concur with the Shift Assessment completed by the Licensed Practical Nurse today this shift.
--- NOTE | 2018-07-23 07:11 | NUR ---
REPORT RECEIVED. WILL CONTINUE WITH POC. PT CURRENTLY LYING SEMI FOWLERS. CALL LIGHT W/I REACH. PT IS RESTING AT THE MOMENT. RR EVEN AND UNLABORED ON RA. NS INFUSING @KVO VIA R.IJ CVL AND R.WRIST PIV IS SALINE LOCKED. NO S/S OF DISTRESS NOTED. WILL CTM.
[2018-07-23 08:44] VITALS: BP 171/72
[2018-07-23 13:31] VITALS: BP 129/59
--- NOTE | 2018-07-23 15:08 | NUR ---
I have reviewed this patient and I concur with the Shift Assessment completed by the Licensed Practical Nurse today this shift.
--- NOTE | 2018-07-23 17:10 | NUR ---
CVL DRESSING CHANGE TO RIGHT IJ. C/D/I. NO DRAINAGE PRESENT. ABX CURRENTLY INFUSING. SUTURES IN PLACE. PT DENIES ANY NEEDS AND DOES NOT WANT TO EAT DINNER. WILL CTM.
[2018-07-23 17:28] VITALS: BP 128/67
[2018-07-23 19:35] VITALS: BP 142/80
--- NOTE | 2018-07-23 19:39 | NUR ---
RECEIVED REPORT, WILL ASSUME CARE OF PT, AWAKING TELLING ME HE KNOWS ANOTHER ULYSSES,SO HE WOULD REMEMBER MY NAME, DENIES ANY NEEDS AT THIS TIME, BED IS LOW, SRX3, CALL LIGHT IN REACH, WILL CONTINUE PLAN OF CARE
--- NOTE | 2018-07-23 20:41 | NUR ---
PT ASKING FOR PAIN PILL, SAYS HE HURTS ALL OVER, GAVE NORCO ORDER
[2018-07-24] VITALS: BP 135/89
[2018-07-24 04:00] VITALS: BP 139/74
[2018-07-24 09:25] VITALS: BP 158/87
[2018-07-24 14:03] VITALS: BP 132/77
--- NOTE | 2018-07-24 19:30 | NUR ---
RECEIVED REPORT, WILL ASSUME CARE OF PLAN, PT IS SLEEPING, NO DISTRESS NOTICED AT THIS TIME, BED IS LOW, SRX3, CALL LIGHT IN REACH, WILL CONTINUE PLAN OF CARE
[2018-07-24 20:00] VITALS: BP 142/75
[2018-07-25] VITALS: BP 124/71
--- NOTE | 2018-07-25 03:54 | NUR ---
I have reviewed this patient and I concur with the Shift Assessment completed by the Licensed Practical Nurse today this shift.
[2018-07-25 04:00] VITALS: BP 120/59
[2018-07-25 05:59] LABS: BASOPHILS 0.4 % (0-2); EOSINOPHILS 9.4 % (0-7); HEMATOCRIT 34.7 % (42.0-54.0); HEMOGLOBIN 11.3 g/dL (13.5-17.5); IMMATURE GRANULOCYTES 1.1 % (0-5); MCH 29.7 pg (26.0-34.0); MCHC 32.6 g/dL (31.0-37.0); MCV 91.1 fL (80.0-100.0); MEAN PLATELET VOLUME 9.7 fL (7.4-10.4); MONOCYTES 16.8 % (2-11); NEUTROPHILS 47.3 % (40-80); PLATELET COUNT 206 10x3/uL (130-400); RBC 3.81 10x6/uL (4.20-6.10); RDW 13.1 % (11.5-14.5); WBC 5.6 10x3/uL (4.8-10.8)
[2018-07-25 06:27] LABS: CALC OSMOLALITY 278 mosm/kg (275-300); CALCIUM 8.4 mg/dL (8.5-10.1); CARBON DIOXIDE 26.8 mmol/L (21.0-32.0); CHLORIDE - SERUM 104 mmol/L (98-107); GLUCOSE 79 mg/dL (74-106); SODIUM 141 mmol/L (136-145); UREA NITROGEN 10 mg/dL (7-18); eGFR NON AFRICAN AMERICAN 78 mL/min (90-120)
[2018-07-25 06:38] LABS: POTASSIUM - SERUM 2.8 mmol/L (3.5-5.1)
--- NOTE | 2018-07-25 07:35 | NUR ---
REPORT RECEIVED. WILL CONTINUE WITH POC. PT CURRENTLY LYING SEMI FOWLERS. CALL LIGHT W/I REACH. PT IS RESTING AT THE MOMENT. RR EVEN AND UNLABORED ON RA. LR INFUSING @KVO VIA R.IJ CVL. NO S/S OF DISTRESS NOTED. PT DENIES ANY NEEDS. WILL CTM.
[2018-07-25 08:55] VITALS: BP 124/65
--- NOTE | 2018-07-25 08:56 | NUR ---
ROUTINE MATIAS CARE PERFORMED. LIDOCAINE PATCH PLACED ON LOWER BACK. PT TURNED TO RIGHT SIDE. SCDS IN PLACE. LR INFUSING @KVO VIA RIGHT IJ CVL. PT DENIES ANY NEEDS. WILL CTM.
--- NOTE | 2018-07-25 09:49 | MORECARE ---
CASE MANAGEMENT DISCHARGE SUMMARY PATIENT: GENESIS HOLLIS UNIT: [id number] ADM DATE: 07/16/18 AGE: 72 : 45 SEX: M ROOM/BED: D.2105 AUTHOR: JOSE,DOC PHYSICIAN: REFERRING PHYSICIAN: IRMA CUMMINGS MD DATE OF SERVICE: 07/25/18 Discharge Plan Patient Name: GENESIS HOLLIS Facility: [facility]:[place] : 1945 Planned Disposition: Nursing Facility [facility] Cert Anticipated Discharge Date: Discharge Date: Expected LOS: Initial Reviewer: [id number] Initial Review Date: 07/22/2018 Generated: 07/25/18 10:49 am Comments DCP- Discharge Planning Updated by [id number]: Carlos Orosco on 07/25/18 8:[address] Patient Name: GENESIS HOLLIS Encounter No: [id number] : 1945 Primary Insurance: MEDICARE A & B Anticipated DC Date: Planned Disposition: Nursing Facility [facility] Cert External Planned Provider: [facility] TERM CARE MEDICAID BED Discharge Planning Comments: CM FAXED HOSPITAL UPDATE TO [facility] AT [phone]. FOR DISCHARGE BACK TO SNF CARE AT [facility], FAX DISCHARGE INFORMATION TO [phone]. NURSE REPORT TO BE CALLED TO [facility] AT [phone]. PT TO TRANSPORT VIA AMBULANCE. Sustainment Logistics Analyst: Carlos Orosco DCP- Discharge Planning Updated by [id number]: Carlos Orosco on 07/22/18 10:[address] Patient Name: GENESIS HOLLIS Admission Status: Elective Accout number: [id number] Admission Date: 07-16-2018 : 1945 Admission Diagnosis:SEPSIS, UNSPECIFIED ORGANISM Attending: IRMA CUMMINGS Current LOS: 6 Anticipated DC Date: Planned Disposition: Nursing Facility [facility] Cert Primary Insurance: MEDICARE A & B PLANNED EXTERNAL PROVIDER: [facility] TERM CARE MEDICAID BED Discharge Planning Comments: CM HEARD PT CONTINUALLY YELLING "HELP" FROM ROOM. CM MET WITH PT IN ROOM AND ASKED WHAT PT NEEDS HELP WITH. PT STATES HE DOES NOT KNOW. CM ASKED TO DISCUSS DISCHARGE PLANNING AND NEEDS. PT REPORTS LIVING AT HOME INDEPENDENTLY AND ALONE ABOUT THREE MILES FROM HERE. CM ASKED PT WHERE HE IS AT NOW, PT STATES HOSPITAL AND I'M TIRED OF BEING HERE. . PT REPORTS HAVING NO MEDICAL EQUIPMENT AND NO OUTSIDE SERVICES ASSISTING IN THE HOME. CM DISCUSSED SENIOR CARE CARE PT'S CHART INDICATES PT BEING FROM LOCAL SENIOR CARE. PT STATES THAT HE IS STAYING AT [facility] AND HAD BEEN GETTING REHAB THERE. PT STATES HE IS GOING BACK THERE FROM THE HOSPITAL AND WANTS TO GO NOW. CM EXPLAINED THAT THE DOCTOR NEEDS TO DISCHARGE HIM WHEN STABLE TO RETURN TO [facility]. PT REPORTS UNDERSTANDING. CM EXPLAINED CALL LIGHT USE FOR ASSISTANCE. PT STATES IT DOES NOT WORK. CM DEMONSTRATED HOW TO PUSH THE BUTTON AND IT DID WORK . PT STATES HE WILL JUST CALL OUT FOR HELP WHEN HE NEEDS IT. PT CHOICE WAS NOT SIGNED BY PT HE STATES HE CANNOT, CHOICE COMPLETED. CM SPOKE TO CURRY OF [facility] AT NURSES STATION, CURRY REPORTS PT IS IN SNF CARE AT [facility] AND THEY WILL ACCEPT BACK FOR CONTINUED CARE AT DISCHARGE. CM FAXED HOSPITAL UPDATE TO [facility] AT [phone]. FOR DISCHARGE BACK TO BRICK AND TILE MAKING MACHINE OPERATOR CARE AT [facility], FAX DISCHARGE INFORMATION TO [phone]. NURSE REPORT TO BE CALLED TO [facility] AT [phone]. PT TO TRANSPORT VIA AMBULANCE. Sustainment Logistics Analyst: Carlos Orosco DCPIA - Discharge Planning Initial Assessment Updated by [id number]: Carlos Orosco on 07/22/18 10:54 am * Is the patient Alert and Oriented? Yes * How many steps to enter\\exit or inside your home? NONE * PCP DR. CUMMINGS * Pharmacy [facility] * Preadmission Environment [facility] * Facility Name [facility] * ADLs Total Dependent * Equipment Other * Other Equipment ALL MEDICAL EQUIPMENT PROVIDED BY FACILITY * List name and contact numbers for known caregivers / representatives who currently or will assist patient after discharge: HUDSON WOODWARD, FRIEND, MALGORZATA PRICE, FRIEND, * Verbal permission to speak to the caregivers and representatives has been obtained from the patient. No * Community resources currently utilized None * Please name any agencies selected above. NONE * Additional services required to return to the preadmission environment? No * Can the patient safely return to the preadmission environment? Yes * Has this patient been hospitalized within the prior 30 days at any hospital? Yes Coverage Notice Reviewer: [id number] Nneka Orosco Notice Issued Date-Time: 07/22/2018 9:15 Notice Type: Patient Choice Letter Notice Delivered To: Patient Relationship to Patient: Expeller Operator Name: Delivery Method: HAND - Hand Delivered Jennifer Days: Prior Verbal Notification: Recipient Understood Notice: Yes Recipient Signature: Med Rec Note Co-signed by Attending: Coverage Notice Comment: [facility] Last DP export: 07/22/18 10:11 am Patient Name: GENESIS HOLLIS Page [phone] at 0949 All edits/amendments must be made on the electronic document DICTATION DATE: 07/25/18947 AUTOMOTIVE SERVICE WRITER: JONNY 07/25/18947 RPT#: [id number] DC DATE: STATUS: ADM IN [facility] [address] [place] [address] END OF REPORT
[2018-07-25 12:36] VITALS: BP 136/87
--- NOTE | 2018-07-25 14:28 | NUR ---
I have reviewed this patient and I concur with the Shift Assessment completed by the Licensed Practical Nurse today this shift.
[2018-07-25 16:43] VITALS: BP 131/79
--- NOTE | 2018-07-25 19:43 | NUR ---
REC'D IN BED WITH EYES CLOSED RESTING WELL AT THIS TIME. EASILY ARUOSED WHEN NAME IS CALLED. RESP EVEN AND UNLABORED WITH NO DISTRESS NOTED. ASSESSMENT COMPLETED. C/L IN REACH AT BEDSIDE.
[2018-07-25 20:00] VITALS: BP 153/87
[2018-07-26] VITALS: BP 146/79
--- NOTE | 2018-07-26 02:34 | NUR ---
I have reviewed this patient and I concur with the Shift Assessment completed by the Licensed Practical Nurse today this shift.
[2018-07-26 04:20] VITALS: BP 148/69
[2018-07-26 09:16] VITALS: BP 155/46
--- NOTE | 2018-07-26 10:48 | NUR ---
Nutrition follow-up: Diet per speech: Regular mechanical soft with honey thick liquids and 1:1 feeding PO intake continues to be poor labs reviewed Wt: 199# If pt still with functioning PEG tube, recommend supplementing diet with bolus feeds of Jevity 1.2 camilo 1 can if po intake < 50% of meals. RDN following.
[2018-07-26 12:38] VITALS: BP 137/75
[2018-07-26 17:01] VITALS: BP 153/77
[2018-07-26 20:00] VITALS: BP 140/73
--- NOTE | 2018-07-26 20:15 | NUR ---
RESUMING PT CARE. PT IS ALERT LAYING IN BED. RESPIRATIONS ARE EVEN AND UNLABORED. NO S/S OF DISTRESS NOTED. BED IN LOW POSITION WITH CALL LIGHT IN REACH. SIDE RAILS UP X 2. WILL CONTINUE TO MONITOR AND FOLLOW PLAN OF CARE.
[2018-07-27] VITALS: BP 139/74
--- NOTE | 2018-07-27 00:15 | NUR ---
PT WAS AGRESSIVE AND COMBATIVE. SCREAMING VERY LOUDLY. DR. CUMMINGS WAS CALLED AND NOTIFIED AND ORDERED GEODON 10MG IM AND GEODON 20MG IM TO BE GIVEN DAILY.
[2018-07-27 04:00] VITALS: BP 136/71
--- NOTE | 2018-07-27 04:45 | NUR ---
I have reviewed this patient and I concur with the Shift Assessment completed by the Licensed Practical Nurse today this shift.
--- NOTE | 2018-07-27 06:36 | NUR ---
PT LAYING IN BED RESTING COMFORTABLY WITH EYES CLOSED. RESPIRATIONS ARE EVEN AND UNLABORED. NO S/S OF DISTRESS NOTED. WILL CONTINUE TO MONITOR PT AND FOLLOW PLAN OF CARE.
--- NOTE | 2018-07-27 07:21 | NUR ---
REPORT RECEIVED. WILL CONTINUE WITH POC. PT CURRENTLY LYING SEMI FOWLERS. CALL LIGHT W/I REACH. PT IS RESTING AT THE MOMENT. RR EVEN AND UNLABORED ON RA. R.IJ CVL IS SALINE LOCKED. NO S/S OF DISTRESS NOTED. MATIAS IN PLACE AND DRAINING URINE. WILL CTM.
[2018-07-27 07:56] VITALS: BP 118/88
--- NOTE | 2018-07-27 09:59 | MORECARE ---
CASE MANAGEMENT DISCHARGE SUMMARY PATIENT: GENESIS HOLLIS UNIT: [id number] ADM DATE: 07/16/18 AGE: 72 : 45 SEX: M ROOM/BED: D.2105 AUTHOR: JOSE,DOC PHYSICIAN: REFERRING PHYSICIAN: IRMA CUMMINGS MD DATE OF SERVICE: 07/27/18 Discharge Plan Patient Name: GENESIS HOLLIS Facility: [facility]:[place] : 1945 Planned Disposition: Nursing Facility [facility] Cert Anticipated Discharge Date: Discharge Date: Expected LOS: Initial Reviewer: [id number] Initial Review Date: 07/22/2018 Generated: 07/27/18 10:59 am Comments DCP- Discharge Planning Updated by [id number]: Carlos Orosco on 07/27/18 8:[address] Patient Name: GENESIS HOLLIS Encounter No: [id number] : 1945 Primary Insurance: MEDICARE A & B Anticipated DC Date: Planned Disposition: Nursing Facility [facility] Cert External Planned Provider: [facility] TERM CARE MEDICAID BED Discharge Planning Comments: CM RECEIVED CALL FROM CURRY OF [facility] REQUESTING HOSPITAL UPDATE. CM FAXED HOSPITAL UPDATE TO [facility] AT [phone]. CM SPOKE TO PT IN ROOM DISCUSSED DISCHARGE PLANNING AND NEEDS. PT DENIES NEEDS, IN AGREEMENT WITH PLAN TO RETURN TO THE RETIREMENT AT DISCHARGE. IMPORTANT MESSAGE FROM MEDICARE PROVIDED AND EXPLAINED. FOR DISCHARGE BACK TO [facility] AT [facility], FAX DISCHARGE INFORMATION TO [phone]. NURSE REPORT TO BE CALLED TO [facility] AT [phone]. PT TO TRANSPORT VIA AMBULANCE. Hardwood Flooring Specialist: Carlos Orosco DCP- Discharge Planning Updated by [email or web address]: Carlos Orosco on 07/25/18 8:[address] Patient Name: GENESIS HOLLIS Encounter No: [id number] : 1945 Primary Insurance: MEDICARE A & B Anticipated DC Date: Planned Disposition: Nursing Facility [facility] Cert External Planned Provider: [facility] TERM [facility] MEDICAID BED Discharge Planning Comments: CM FAXED HOSPITAL UPDATE TO [facility] AT [phone]. FOR DISCHARGE BACK TO [facility] AT [facility], FAX DISCHARGE INFORMATION TO [phone]. NURSE REPORT TO BE CALLED TO [facility] AT [phone]. PT TO TRANSPORT VIA AMBULANCE. Hardwood Flooring Specialist: Carlos Orosco DCP- Discharge Planning Updated by [id number]: Carlos Orosco on 07/22/18 10:[address] Patient Name: GENESIS HOLLIS Admission Status: Elective Accout number: [id number] Admission Date: 07-16-2018 : 1945 Admission Diagnosis:SEPSIS, UNSPECIFIED ORGANISM Attending: IRMA CUMMINGS Current LOS: 6 Anticipated DC Date: Planned Disposition: Nursing Facility [facility] Cert Primary Insurance: MEDICARE A & B PLANNED EXTERNAL PROVIDER: [facility], [facility] MEDICAID BED Discharge Planning Comments: CM HEARD PT CONTINUALLY YELLING "HELP" FROM ROOM. CM MET WITH PT IN ROOM AND ASKED WHAT PT NEEDS HELP WITH. PT STATES HE DOES NOT KNOW. CM ASKED TO DISCUSS DISCHARGE PLANNING AND NEEDS. PT REPORTS LIVING AT HOME INDEPENDENTLY AND ALONE ABOUT THREE MILES FROM HERE. CM ASKED PT WHERE HE IS AT NOW, PT STATES HOSPITAL AND I'M TIRED OF BEING HERE. . PT REPORTS HAVING NO MEDICAL EQUIPMENT AND NO OUTSIDE SERVICES ASSISTING IN THE HOME. CM DISCUSSED RETIREMENT CARE PT'S CHART INDICATES PT BEING FROM LOCAL RETIREMENT. PT STATES THAT HE IS STAYING AT [facility] AND HAD BEEN GETTING REHAB THERE. PT STATES HE IS GOING BACK THERE FROM THE HOSPITAL AND WANTS TO GO NOW. CM EXPLAINED THAT THE DOCTOR NEEDS TO DISCHARGE HIM WHEN STABLE TO RETURN TO [facility]. PT REPORTS UNDERSTANDING. CM EXPLAINED CALL LIGHT USE FOR ASSISTANCE. PT STATES IT DOES NOT WORK. CM DEMONSTRATED HOW TO PUSH THE BUTTON AND IT DID WORK . PT STATES HE WILL JUST CALL OUT FOR HELP WHEN HE NEEDS IT. PT CHOICE WAS NOT SIGNED BY PT HE STATES HE CANNOT, CHOICE COMPLETED. CM SPOKE TO CURRY OF [facility] AT NURSES STATION, [facility] REPORTS PT IS IN [facility] AND THEY WILL ACCEPT BACK FOR CONTINUED CARE AT DISCHARGE. CM FAXED HOSPITAL UPDATE TO [facility] AT [phone]. FOR DISCHARGE BACK TO [facility] AT [facility], FAX DISCHARGE INFORMATION TO [phone]. NURSE REPORT TO BE CALLED TO [facility] AT [phone]. PT TO TRANSPORT VIA AMBULANCE. Hardwood Flooring Specialist: Carlos Orosco DCPIA - Discharge Planning Initial Assessment Updated by [id number]: Carlos Orosco on 07/22/18 10:54 am * Is the patient Alert and Oriented? Yes * How many steps to enter\\exit or inside your home? NONE * PCP DR. CUMMINGS * [facility] * Preadmission Environment Contract Administrative Assistant Detention * Facility Name [facility] * ADLs Total Dependent * Equipment Other * Other Equipment ALL MEDICAL EQUIPMENT PROVIDED BY FACILITY * List name and contact numbers for known caregivers / representatives who currently or will assist patient after discharge: HUDSON WOODWARD, FRIEND, MALGORZATA PRICE, FRIEND, * Verbal permission to speak to the caregivers and representatives has been obtained from the patient. No * Community resources currently utilized None * Please name any agencies selected above. NONE * Additional services required to return to the preadmission environment? No * Can the patient safely return to the preadmission environment? Yes * Has this patient been hospitalized within the prior 30 days at any hospital? Yes Coverage Notice Reviewer: [id number] Nneka Orosco Notice Issued Date-Time: 07/22/2018 9:15 Notice Type: Patient Choice Letter Notice Delivered To: Patient Relationship to Patient: Quality Assurance Supervisor Chassis Name: Delivery Method: HAND - Hand Delivered Jennifer Days: Prior Verbal Notification: Recipient Understood Notice: Yes Recipient Signature: Med Rec Note Co-signed by Attending: Coverage Notice Comment: [facility] Reviewer: [id number] Nneka Orosco Notice Issued Date-Time: 07/27/2018 9:45 Notice Type: IM Discharge Notice Notice Delivered To: Patient Relationship to Patient: Quality Assurance Supervisor Chassis Name: Delivery Method: HAND - Hand Delivered Jennifer Days: Prior Verbal Notification: Recipient Understood Notice: Yes Recipient Signature: Yes Med Rec Note Co-signed by Attending: Coverage Notice Comment: Last DP export: 07/25/18 8:49 am Patient Name: GENESIS HOLLIS Page 70413 at 0959 All edits/amendments must be made on the electronic document DICTATION DATE: 07/27/18957 CHIEF MATE: JONNY 07/27/18957 RPT#: [id number] DC DATE: STATUS: ADM IN [facility] [address] [place] [address] END OF REPORT
--- NOTE | 2018-07-27 14:44 | NUR ---
I have reviewed this patient and I concur with the Shift Assessment completed by the Licensed Practical Nurse today this shift.
[2018-07-27 16:16] VITALS: BP 109/69
--- NOTE | 2018-07-27 17:09 | NUR ---
PT IS CONFUSED TO TIME, PLACE, SITUATION, AND PERSON. HE STATES "WHEN YOU GET READY, I WANT TO RIDE UP TO THE SCHOOL WITH YOU TO MEET MALGORZATA. I KNOW HOW TO GET THERE." PT IS UNDER THE IMPRESSION THAT HE IS AT HOME AND IT IS 2005. PT IS AA AND BEDFAST. CALL LIGHT W/I REACH. FALL PRECAUTIONS IN PLACE. MATIAS IN PLACE. PT REFUSES TO EAT DINNER STATING HE IS NOT HUNGRY. WILL CTM.
--- NOTE | 2018-07-27 19:45 | NUR ---
RESUMING PT CARE. PT IS ALERT AND CONFUSED TO PERSON , PLACE AND SITUATION. NO ACUTE S/S OF DISTRESS NOTED. BED IN LOW POSITION WITH CALL LIGHT IN REACH. SIDE RAILS UP X 2. WILL CONTINUE TO MONITOR PT AND FOLLOW PLAN OF CARE.
[2018-07-27 20:00] VITALS: BP 122/69
[2018-07-28] VITALS: BP 136/70
--- NOTE | 2018-07-28 03:00 | NUR ---
I have reviewed this patient and I concur with the Shift Assessment completed by the Licensed Practical Nurse today this shift.
[2018-07-28 04:00] VITALS: BP 143/89
[2018-07-28] MEDS ORDERED: LISINOPRIL40 MG PO (06:56)
[2018-07-28] MEDS ORDERED: BETAPACE 80 MG80 MG PO (06:56)
[2018-07-28] MEDS ORDERED: GABAPENTIN100 MG PO (06:57)
[2018-07-28] MEDS ORDERED: EFFEXOR37.5 MG PO (06:59)
[2018-07-28] MEDS ORDERED: GEODON20 MG PO (06:59)
[2018-07-28] MEDS ORDERED: PROTONIX40 MG PO (07:01)
--- NOTE | 2018-07-28 07:45 | NUR ---
AM ROUNDS COMPLETED. INTRODUCED MYSELF TO PT PRIMARY RN FOR TODAYS SHIFT. SHIFT ASSESSMENT COMPLETED. PT IS PLEASANTLY CONFUSED WITH BASELINE DEMENTIA. PT STATES HE HAS BEEN ON A TRAIN TRAVELING ALL NIGHT AND WILL PROBABLY STAY IN TODAY TO GET SOME REST. PT DOESNT KNOW WHERE HE IS, TIME OR SIUATION HOWEVER ORIENTED TO HIMSELF. PT HAS A R.IJ CVL WITH BIOPATCH INTACT AND DRSG ADHERED TO SKIN, ORDERS TO REMOVE HAVE BEEN IN SINCE YESTERDAY SO I WILL D/C IT TODAY. PT HAS A PEG TUBE IN WITH SOILED DRSG, WILL ALSO CLEANSE TODAY AND PROVIDE WITH NEW DRSG. PT HAS MATIAS IN PLACE R/T RETENTION AND TRAUMA PLACED BY UROLOGY AND TO STAY IN UNTIL F/U APPT. STAT LOCK IS OFF SO I PLACED NEW ONE TO L.INNER THIGH AND SECURED MATIAS. MATIAS DRAINING TO GRAVITY OFF L.SIDE OF BED, CLEAR YELLOW URINE. PT CURRENTLY ON HIS R.SIDE AND IS TO BE TURNED Q2H TO RELIEVE PRESSURE. WILL TRY TO KEEP HIM TURNED. PT DENIES ANY CURRENT PAIN OR NEEDS AT THIS TIME. CL IN REACH, BED IN LOWEST, SIDE RAILS X2 AND BUILT IN BED ALARM. WILL CPOC.
[2018-07-28 07:46] VITALS: BP 112/57
--- NOTE | 2018-07-28 07:47 | MORECARE ---
CASE MANAGEMENT DISCHARGE SUMMARY PATIENT: GENESIS HOLLIS UNIT: [id number] ADM DATE: 07/16/18 AGE: 72 : 45 SEX: M ROOM/BED: D.2103 AUTHOR: JOSE,DOC PHYSICIAN: REFERRING PHYSICIAN: IRMA CUMMINGS MD DATE OF SERVICE: 07/28/18 Discharge Plan Patient Name: GENESIS HOLLIS Facility: [facility]:[place] : 1945 Planned Disposition: Nursing Facility [facility] Cert Anticipated Discharge Date: 07/28/18 Discharge Date: Expected LOS: 12 Initial Reviewer: [id number] Initial Review Date: 07/22/2018 Generated: 07/28/18 8:47 am Comments DCP- Discharge Planning Updated by [id number]: Carlos Orosco on 07/28/18 6:[address] Patient Name: GENESIS HOLLIS Encounter No: [id number] : 1945 Primary Insurance: MEDICARE A & B Anticipated DC Date: Planned Disposition: Nursing Facility [facility] Cert External Planned Provider: [facility], LONG TERM CARE MEDICAID BED Discharge Planning Comments: CM SPOKE TO BEDSIDE NURSE WHO INFORMED CM OF DISCHARGE TODAY. CM FAXED AVAILABLE DISCHARGE INFORMATION TO [facility] AT [phone]. CM SPOKE TO PT IN ROOM WHO IS IN AGREEMENT WITH RETURN TO THE [facility] TODAY. NURSE REPORT TO BE CALLED TO [facility] AT [phone]. PT TO TRANSPORT VIA AMBULANCE. Hassock Maker: Carlos Irwin . DCP- Discharge Planning Updated by [id number]: Carlos Orosco on 07/27/18 8:[address] Patient Name: GENESIS HOLLIS Encounter No: [id number] : 1945 Primary Insurance: MEDICARE A & B Anticipated DC Date: Planned Disposition: Nursing Facility [facility] Cert External Planned Provider: [facility], LONG TERM CARE MEDICAID BED Discharge Planning Comments: CM RECEIVED CALL FROM CURRY OF [facility] REQUESTING HOSPITAL UPDATE. CM FAXED HOSPITAL UPDATE TO [facility] AT [phone]. CM SPOKE TO PT IN ROOM DISCUSSED DISCHARGE PLANNING AND NEEDS. PT DENIES NEEDS, IN AGREEMENT WITH PLAN TO RETURN TO THE [facility] AT DISCHARGE. IMPORTANT MESSAGE FROM MEDICARE PROVIDED AND EXPLAINED. FOR DISCHARGE BACK TO LONGTERM CARE AT [facility], FAX DISCHARGE INFORMATION TO [phone]. NURSE REPORT TO BE CALLED TO [facility] AT [phone]. PT TO TRANSPORT VIA AMBULANCE. Hassock Maker: Carlos Orosco DCP- Discharge Planning Updated by [id number]: Carlos Orosco on 07/25/18 8:[address] Patient Name: GENESIS HOLLIS Encounter No: [id number] : 1945 Primary Insurance: MEDICARE A & B Anticipated DC Date: Planned Disposition: Nursing Facility [facility] External Planned Provider: [facility] AND [facility] FINANCIAL AID COUNSEL[facility] CARE MEDICAID BED Discharge Planning Comments: CM FAXED HOSPITAL UPDATE TO [facility] AT [phone]. FOR DISCHARGE BACK TO FINANCIAL AID [facility] CARE AT [facility], FAX DISCHARGE INFORMATION TO [phone]. NURSE REPORT TO BE CALLED TO [facility] AT [phone]. PT TO TRANSPORT VIA AMBULANCE. Hassock Maker: Carlos Orosco DCP- Discharge Planning Updated by [email or web address]: Carlos Orosco on 07/22/18 10:[address] Patient Name: GENESIS HOLLIS Admission Status: Elective Accout number: [id number] Admission Date: 07-16-2018 : 1945 Admission Diagnosis:SEPSIS, UNSPECIFIED ORGANISM Attending: IRMA CUMMINGS Current LOS: 6 Anticipated DC Date: Planned Disposition: Nursing Facility [facility] Primary Insurance: MEDICARE A & B PLANNED EXTERNAL PROVIDER: [facility] AND [facility] TERM CARE MEDICAID BED Discharge Planning Comments: CM HEARD PT CONTINUALLY YELLING "HELP" FROM ROOM. CM MET WITH PT IN ROOM AND ASKED WHAT PT NEEDS HELP WITH. PT STATES HE DOES NOT KNOW. CM ASKED TO DISCUSS DISCHARGE PLANNING AND NEEDS. PT REPORTS LIVING AT HOME INDEPENDENTLY AND ALONE ABOUT THREE MILES FROM HERE. CM ASKED PT WHERE HE IS AT NOW, PT STATES HOSPITAL AND I'M TIRED OF BEING HERE. . PT REPORTS HAVING NO MEDICAL EQUIPMENT AND NO OUTSIDE SERVICES ASSISTING IN THE HOME. CM DISCUSSED [facility] CARE PT'S CHART INDICATES PT BEING FROM LOCAL [facility]. PT STATES THAT HE IS STAYING AT [facility] AND HAD BEEN GETTING REHAB THERE. PT STATES HE IS GOING BACK THERE FROM THE HOSPITAL AND WANTS TO GO NOW. CM EXPLAINED THAT THE DOCTOR NEEDS TO DISCHARGE HIM WHEN STABLE TO RETURN TO [facility]. PT REPORTS UNDERSTANDING. CM EXPLAINED CALL LIGHT USE FOR ASSISTANCE. PT STATES IT DOES NOT WORK. CM DEMONSTRATED HOW TO PUSH THE BUTTON AND IT DID WORK . PT STATES HE WILL JUST CALL OUT FOR HELP WHEN HE NEEDS IT. PT CHOICE WAS NOT SIGNED BY PT HE STATES HE CANNOT, CHOICE COMPLETED. CM SPOKE TO [facility] OF [facility] AT NURSES STATION, [facility] REPORTS PT IS IN FINANCIAL AID [facility] CARE AT [facility] AND THEY WILL ACCEPT BACK FOR CONTINUED CARE AT DISCHARGE. CM FAXED HOSPITAL UPDATE TO [facility] AT [phone]. FOR DISCHARGE BACK TO LONGTERM CARE AT [facility], FAX DISCHARGE INFORMATION TO [phone]. NURSE REPORT TO BE CALLED TO [facility] AT [phone]. PT TO TRANSPORT VIA AMBULANCE. Hassock Maker: Carlos Orosco DCPIA - Discharge Planning Initial Assessment Updated by [id number]: Carlos Orosco on 07/22/18 10:54 am * Is the patient Alert and Oriented? Yes * How many steps to enter\\exit or inside your home? NONE * PCP DR. CUMMINGS * [facility] * Preadmission Environment Halfway [employer]pc * Facility Name [facility] * ADLs Total Dependent * Equipment Other * Other Equipment ALL MEDICAL EQUIPMENT PROVIDED BY FACILITY * List name and contact numbers for known caregivers / representatives who currently or will assist patient after discharge: HUDSON WOODWARD, FRIEND, MALGORZATA PRICE, FRIEND, * Verbal permission to speak to the caregivers and representatives has been obtained from the patient. No * Community resources currently utilized None * Please name any agencies selected above. NONE * Additional services required to return to the preadmission environment? No * Can the patient safely return to the preadmission environment? Yes * Has this patient been hospitalized within the prior 30 days at any hospital? Yes Coverage Notice Reviewer: [id number] Nneka Orosco Notice Issued Date-Time: 07/22/2018 9:15 Notice Type: Patient Choice Letter Notice Delivered To: Patient Relationship to Patient: Lecturer Of Portuguese Name: Delivery Method: HAND - Hand Delivered Jennifer Days: Prior Verbal Notification: Recipient Understood Notice: Yes Recipient Signature: Med Rec Note Co-signed by Attending: Coverage Notice Comment: [facility] Reviewer: [id number] Orosco Notice Issued Date-Time: 07/27/2018 9:45 Notice Type: IM Discharge Notice Notice Delivered To: Patient Relationship to Patient: Lecturer Of Portuguese Name: Delivery Method: HAND - Hand Delivered Jennifer Days: Prior Verbal Notification: Recipient Understood Notice: Yes Recipient Signature: Yes Med Rec Note Co-signed by Attending: Coverage Notice Comment: Last DP export: 07/27/18 8:59 am Patient Name: GENESIS HOLLIS Page [phone] at 0747 All edits/amendments must be made on the electronic document DICTATION DATE: 07/28/18746 BIOLOGY INSTRUCTOR: JONNY 07/28/18746 RPT#: [id number] DC DATE: STATUS: ADM IN [facility] [address] [place] [address] END OF REPORT
--- NOTE | 2018-07-28 08:40 | MORECARE ---
CASE MANAGEMENT DISCHARGE SUMMARY PATIENT: GENESIS HOLLIS UNIT: [id number] ADM DATE: 07/16/18 AGE: 72 : 45 SEX: M ROOM/BED: D.2107 AUTHOR: JOSE,DOC PHYSICIAN: REFERRING PHYSICIAN: IRMA CUMMINGS MD DATE OF SERVICE: 07/28/18 Discharge Plan Patient Name: GENESIS HOLLIS Facility: [facility]:Surveyor : 1945 Planned Disposition: Nursing Facility [facility] Cert Anticipated Discharge Date: 07/28/18 Discharge Date: Expected LOS: 12 Initial Reviewer: [id number] Initial Review Date: 07/22/2018 Generated: 07/28/18 9:40 am Comments DCP- Discharge Planning Updated by [id number]: Carlos Orosco on 07/28/18 7:[address] Patient Name: GENESIS HOLLIS Encounter No: [id number] : 1945 Primary Insurance: MEDICARE A & B Anticipated DC Date: 07-28-2018 Planned Disposition: Nursing Facility [facility] Cert External Planned Provider: [facility], MEDICARE REHAB BED Discharge Planning Comments: CM CALLED AND SPOKE TO [facility], , FAX RECEIVED, THEY WILL ACCEPT TODAY AND PT WILL RETURN TO [facility] IN A SKILLED BED. NURSE REPORT TO BE CALLED TO [facility] AT [phone]. PT TO TRANSPORT VIA AMBULANCE. Interpreter For The Deaf: Carlos Orosco DCP- Discharge Planning Updated by [id number]: Carlos Orosco on 07/28/18 6:[address] Patient Name: GENESIS HOLLIS Encounter No: [id number] : 1945 Primary Insurance: MEDICARE A & B Anticipated DC Date: Planned Disposition: Nursing Facility [facility] Cert External Planned Provider: [facility], ASSISTANT PLANT CONTROL OPERATOR CARE MEDICAID BED Discharge Planning Comments: CM SPOKE TO BEDSIDE NURSE WHO INFORMED CM OF DISCHARGE TODAY. CM FAXED AVAILABLE DISCHARGE INFORMATION TO [facility] AT [phone]. CM SPOKE TO PT IN ROOM WHO IS IN AGREEMENT WITH RETURN TO THE SENIOR CARE TODAY. NURSE REPORT TO BE CALLED TO [facility] AT [phone]. PT TO TRANSPORT VIA AMBULANCE. Interpreter For The Deaf: Carlos Irwin . DCP- Discharge Planning Updated by [id number]: Carlos Orosco on 07/27/18 8:[address] Patient Name: GENESIS HOLLIS Encounter No: [id number] : 1945 Primary Insurance: MEDICARE A & B Anticipated DC Date: Planned Disposition: Nursing Facility [facility] Cert External Planned Provider: [facility], LONG TERM CARE MEDICAID BED Discharge Planning Comments: CM RECEIVED CALL FROM [facility] OF [facility] REQUESTING HOSPITAL UPDATE. CM FAXED HOSPITAL UPDATE TO [facility] AT [phone]. CM SPOKE TO PT IN ROOM DISCUSSED DISCHARGE PLANNING AND NEEDS. PT DENIES NEEDS, IN AGREEMENT WITH PLAN TO RETURN TO THE SENIOR CARE AT DISCHARGE. IMPORTANT MESSAGE FROM MEDICARE PROVIDED AND EXPLAINED. FOR DISCHARGE BACK TO [facility] AT [facility], FAX DISCHARGE INFORMATION TO [phone]. NURSE REPORT TO BE CALLED TO [facility] AT [phone]. PT TO TRANSPORT VIA AMBULANCE. Interpreter For The Deaf: Carlos Orosco DCP- Discharge Planning Updated by [id number]: Carlos Orosco on 07/25/18 8:[address] Patient Name: GENESIS HOLLIS Encounter No: [id number] : 1945 Primary Insurance: MEDICARE A & B Anticipated DC Date: Planned Disposition: Nursing Facility [facility] Cert External Planned Provider: [facility], LONG TERM CARE MEDICAID BED Discharge Planning Comments: CM FAXED HOSPITAL UPDATE TO [facility] AT [phone]. FOR DISCHARGE BACK TO [facility]ARE AT [facility], FAX DISCHARGE INFORMATION TO [phone]. NURSE REPORT TO BE CALLED TO [facility] AT [phone]. PT TO TRANSPORT VIA AMBULANCE. Interpreter For The Deaf: Carlos Orosco DCP- Discharge Planning Updated by [id number]: Carlos Orosco on 07/22/18 10:[address] Patient Name: GENESIS HOLLIS Admission Status: Elective Accout number: [id number] Admission Date: 07-16-2018 : 1945 Admission Diagnosis:SEPSIS, UNSPECIFIED ORGANISM Attending: IRMA CUMMINGS Current LOS: 6 Anticipated DC Date: Planned Disposition: Nursing Facility [facility] Cert Primary Insurance: MEDICARE A & B PLANNED EXTERNAL PROVIDER: [facility] TERM CARE MEDICAID BED Discharge Planning Comments: CM HEARD PT CONTINUALLY YELLING "HELP" FROM ROOM. CM MET WITH PT IN ROOM AND ASKED WHAT PT NEEDS HELP WITH. PT STATES HE DOES NOT KNOW. CM ASKED TO DISCUSS DISCHARGE PLANNING AND NEEDS. PT REPORTS LIVING AT HOME INDEPENDENTLY AND ALONE ABOUT THREE MILES FROM HERE. CM ASKED PT WHERE HE IS AT NOW, PT STATES HOSPITAL AND I'M TIRED OF BEING HERE. . PT REPORTS HAVING NO MEDICAL EQUIPMENT AND NO OUTSIDE SERVICES ASSISTING IN THE HOME. CM DISCUSSED SENIOR CARE CARE PT'S CHART INDICATES PT BEING FROM LOCAL SENIOR CARE. PT STATES THAT HE IS STAYING AT [facility] AND HAD BEEN GETTING REHAB THERE. PT STATES HE IS GOING BACK THERE FROM THE HOSPITAL AND WANTS TO GO NOW. CM EXPLAINED THAT THE DOCTOR NEEDS TO DISCHARGE HIM WHEN STABLE TO RETURN TO [facility]. PT REPORTS UNDERSTANDING. CM EXPLAINED CALL LIGHT USE FOR ASSISTANCE. PT STATES IT DOES NOT WORK. CM DEMONSTRATED HOW TO PUSH THE BUTTON AND IT DID WORK . PT STATES HE WILL JUST CALL OUT FOR HELP WHEN HE NEEDS IT. PT CHOICE WAS NOT SIGNED BY PT HE STATES HE CANNOT, CHOICE COMPLETED. CM SPOKE TO [facility] OF [facility] AT NURSES STATION, [facility] REPORTS PT IS IN [facility] AT [facility] AND THEY WILL ACCEPT BACK FOR CONTINUED CARE AT DISCHARGE. CM FAXED HOSPITAL UPDATE TO [facility] AT [phone]. FOR DISCHARGE BACK TO [facility] AT [facility], FAX DISCHARGE INFORMATION TO [phone]. NURSE REPORT TO BE CALLED TO [facility] AT [phone]. PT TO TRANSPORT VIA AMBULANCE. Interpreter For The Deaf: Carlos Orosco DCPIA - Discharge Planning Initial Assessment Updated by [id number]: Carlos Orosco on 07/22/18 10:54 am * Is the patient Alert and Oriented? Yes * How many steps to enter\\exit or inside your home? NONE * PCP DR. CUMMINGS * [facility] * Preadmission Environment [facility] * Facility Name [facility] * ADLs Total Dependent * Equipment Other * Other Equipment ALL MEDICAL EQUIPMENT PROVIDED BY FACILITY * List name and contact numbers for known caregivers / representatives who currently or will assist patient after discharge: HUDSON WOODWARD, FRIEND, MALGORZATA PRICE, FRIEND, * Verbal permission to speak to the caregivers and representatives has been obtained from the patient. No * Community resources currently utilized None * Please name any agencies selected above. NONE * Additional services required to return to the preadmission environment? No * Can the patient safely return to the preadmission environment? Yes * Has this patient been hospitalized within the prior 30 days at any hospital? Yes Coverage Notice Reviewer: [id number] Nneka Orosco Notice Issued Date-Time: 07/22/2018 9:15 Notice Type: Patient Choice Letter Notice Delivered To: Patient Relationship to Patient: Compugraph Operator Name: Delivery Method: HAND - Hand Delivered Jennifer Days: Prior Verbal Notification: Recipient Understood Notice: Yes Recipient Signature: Med Rec Note Co-signed by Attending: Coverage Notice Comment: [facility] Reviewer: [id number] Nneka Orosco Notice Issued Date-Time: 07/27/2018 9:45 Notice Type: IM Discharge Notice Notice Delivered To: Patient Relationship to Patient: Compugraph Operator Name: Delivery Method: HAND - Hand Delivered Jennifer Days: Prior Verbal Notification: Recipient Understood Notice: Yes Recipient Signature: Yes Med Rec Note Co-signed by Attending: Coverage Notice Comment: Last DP export: 07/28/18 6:47 am Patient Name: GENESIS HOLLIS Page 13783 at 0840 All edits/amendments must be made on the electronic document DICTATION DATE: 07/28/18838 TOMBSTONE POLISHER: JONNY 07/28/18838 RPT#: [id number] DC DATE: STATUS: ADM IN [facility] [address] [place] [address] END OF REPORT
--- NOTE | 2018-07-28 10:17 | NUR ---
D/C PTS R.CVL TRIPLE LUMEN WITH CATHETER TIP FULLY INTACT. REMOVED 3 SUTURES AND HELD PRESSURE FOR 10MINS. NO S/S OF BLEEDING OR INFECTION NOTED. APPLIED GUAZE AND TEGADERM AND PT VERBALIZED UNDERSTANDING TO REMAIN FLAT FOR 10MINS. PTS PEG TUBE DRSG SOILED WITH TANNISH DRAINAGE. CLEANSED SITE WITH SOAP AND WATER AND APPLIED ELZA DRAINAGE SPONGE AROUND INSERTION SITE THEN SECURED IT WITH TAPE. CL IN REACH, BED IN LOWEST, SIDE RAILS X2. WILL CTM.
--- NOTE | 2018-07-28 10:18 | MORECARE ---
CASE MANAGEMENT DISCHARGE SUMMARY PATIENT: GENESIS HOLLIS UNIT: [id number] ADM DATE: 07/16/18 AGE: 72 : 45 SEX: M ROOM/BED: D.2101 AUTHOR: JOSE,DOC PHYSICIAN: REFERRING PHYSICIAN: IRMA CUMMINGS MD DATE OF SERVICE: 07/28/18 Discharge Plan Patient Name: GENESIS HOLLIS Facility: [facility]:[place] : 1945 Planned Disposition: Nursing Facility [facility] Cert Anticipated Discharge Date: 07/28/18 Discharge Date: Expected LOS: 12 Initial Reviewer: [id number] Initial Review Date: 07/22/2018 Generated: 07/28/18 11:18 am Comments DCP- Discharge Planning Updated by [id number]: Carlos Orosco on 07/28/18 7:[address] Patient Name: GENESIS HOLLIS Encounter No: [id number] : 1945 Primary Insurance: MEDICARE A & B Anticipated DC Date: 07-28-2018 Planned Disposition: Nursing Facility [facility] Cert External Planned Provider: [facility], MEDICARE REHAB BED Discharge Planning Comments: CM CALLED AND SPOKE TO [facility], , FAX RECEIVED, THEY WILL ACCEPT TODAY AND PT WILL RETURN TO INTERMEDIATE CARE IN A SKILLED BED. NURSE REPORT TO BE CALLED TO [facility] AT [phone]. PT TO TRANSPORT VIA AMBULANCE. Hotel Associate: Carlos Orosco DCP- Discharge Planning Updated by [id number]: Carlos Orosco on 07/28/18 6:[address] Patient Name: GENESIS HOLLIS Encounter No: [id number] : 1945 Primary Insurance: MEDICARE A & B Anticipated DC Date: Planned Disposition: Nursing Facility [facility] Cert External Planned Provider: [facility], POST GRADUATE INTERNSHIP CARE MEDICAID BED Discharge Planning Comments: CM SPOKE TO BEDSIDE NURSE WHO INFORMED CM OF DISCHARGE TODAY. CM FAXED AVAILABLE DISCHARGE INFORMATION TO [facility] AT [phone]. CM SPOKE TO PT IN ROOM WHO IS IN AGREEMENT WITH RETURN TO THE CARE HOME TODAY. NURSE REPORT TO BE CALLED TO [facility] AT [phone]. PT TO TRANSPORT VIA AMBULANCE. Hotel Associate: Carlos Irwin . DCP- Discharge Planning Updated by [id number]: Carlos Orosco on 07/27/18 8:[address] Patient Name: GENESIS HOLLIS Encounter No: [id number] : 1945 Primary Insurance: MEDICARE A & B Anticipated DC Date: Planned Disposition: Nursing Facility [facility] Cert External Planned Provider: [facility], LONG TERM CARE MEDICAID BED Discharge Planning Comments: CM RECEIVED CALL FROM [facility] REQUESTING HOSPITAL UPDATE. CM FAXED HOSPITAL UPDATE TO [facility] AT [phone]. CM SPOKE TO PT IN ROOM DISCUSSED DISCHARGE PLANNING AND NEEDS. PT DENIES NEEDS, IN AGREEMENT WITH PLAN TO RETURN TO THE CARE HOME AT DISCHARGE. IMPORTANT MESSAGE FROM MEDICARE PROVIDED AND EXPLAINED. FOR DISCHARGE BACK TO INTERMEDIATE CARE AT [facility], FAX DISCHARGE INFORMATION TO [phone]. NURSE REPORT TO BE CALLED TO [facility] AT [phone]. PT TO TRANSPORT VIA AMBULANCE. Hotel Associate: Carlos Orosco DCP- Discharge Planning Updated by [id number]: Carlos Orosco on 07/25/18 8:[address] Patient Name: GENESIS HOLLIS Encounter No: [id number] : 1945 Primary Insurance: MEDICARE A & B Anticipated DC Date: Planned Disposition: Nursing Facility [facility] Cert External Planned Provider: [facility], LONG TERM CARE MEDICAID BED Discharge Planning Comments: CM FAXED HOSPITAL UPDATE TO [facility] AT [phone]. FOR DISCHARGE BACK TO POST GRADUATE INTERNSHIP CARE AT [facility], FAX DISCHARGE INFORMATION TO [phone]. NURSE REPORT TO BE CALLED TO [facility] AT [phone]. PT TO TRANSPORT VIA AMBULANCE. Hotel Associate: Carlos Orosco DCP- Discharge Planning Updated by [id number]: Carlos Orosco on 07/22/18 10:[address] Patient Name: GENESIS HOLLIS Admission Status: Elective Accout number: [id number] Admission Date: 07-16-2018 : 1945 Admission Diagnosis:SEPSIS, UNSPECIFIED ORGANISM Attending: IRMA CUMMINGS Current LOS: 6 Anticipated DC Date: Planned Disposition: Nursing Facility [facility] Cert Primary Insurance: MEDICARE A & B PLANNED EXTERNAL PROVIDER: [facility] TERM CARE MEDICAID BED Discharge Planning Comments: CM HEARD PT CONTINUALLY YELLING "HELP" FROM ROOM. CM MET WITH PT IN ROOM AND ASKED WHAT PT NEEDS HELP WITH. PT STATES HE DOES NOT KNOW. CM ASKED TO DISCUSS DISCHARGE PLANNING AND NEEDS. PT REPORTS LIVING AT HOME INDEPENDENTLY AND ALONE ABOUT THREE MILES FROM HERE. CM ASKED PT WHERE HE IS AT NOW, PT STATES HOSPITAL AND I'M TIRED OF BEING HERE. . PT REPORTS HAVING NO MEDICAL EQUIPMENT AND NO OUTSIDE SERVICES ASSISTING IN THE HOME. CM DISCUSSED CARE HOME CARE PT'S CHART INDICATES PT BEING FROM LOCAL CARE HOME. PT STATES THAT HE IS STAYING AT [facility] AND HAD BEEN GETTING REHAB THERE. PT STATES HE IS GOING BACK THERE FROM THE HOSPITAL AND WANTS TO GO NOW. CM EXPLAINED THAT THE DOCTOR NEEDS TO DISCHARGE HIM WHEN STABLE TO RETURN TO [facility]. PT REPORTS UNDERSTANDING. CM EXPLAINED CALL LIGHT USE FOR ASSISTANCE. PT STATES IT DOES NOT WORK. CM DEMONSTRATED HOW TO PUSH THE BUTTON AND IT DID WORK . PT STATES HE WILL JUST CALL OUT FOR HELP WHEN HE NEEDS IT. PT CHOICE WAS NOT SIGNED BY PT HE STATES HE CANNOT, CHOICE COMPLETED. CM SPOKE TO [facility] OF [facility] AT NURSES STATION, [facility] REPORTS PT IS IN [facility] CARE AT [facility] AND THEY WILL ACCEPT BACK FOR CONTINUED CARE AT DISCHARGE. CM FAXED HOSPITAL UPDATE TO [facility] AT [phone]. FOR DISCHARGE BACK TO POST GRADUATE INTERNSHIP CARE AT [facility], FAX DISCHARGE INFORMATION TO [phone]. NURSE REPORT TO BE CALLED TO [facility] AT [phone]. PT TO TRANSPORT VIA AMBULANCE. Hotel Associate: Carlos Orosco DCPIA - Discharge Planning Initial Assessment Updated by [id number]: Carlos Orosco on 07/22/18 10:54 am * Is the patient Alert and Oriented? Yes * How many steps to enter\\exit or inside your home? NONE * PCP DR. CUMMINGS * Pharm[facility] * Preadmission Environment [facility] * Facility Name [facility] * ADLs Total Dependent * Equipment Other * Other Equipment ALL MEDICAL EQUIPMENT PROVIDED BY FACILITY * List name and contact numbers for known caregivers / representatives who currently or will assist patient after discharge: HUDSON WOODWARD, FRIEND, MALGORZATA PRICE, FRIEND, * Verbal permission to speak to the caregivers and representatives has been obtained from the patient. No * Community resources currently utilized None * Please name any agencies selected above. NONE * Additional services required to return to the preadmission environment? No * Can the patient safely return to the preadmission environment? Yes * Has this patient been hospitalized within the prior 30 days at any hospital? Yes Coverage Notice Reviewer: [id number] Nneka Orosco Notice Issued Date-Time: 07/22/2018 9:15 Notice Type: Patient Choice Letter Notice Delivered To: Patient Relationship to Patient: Knobber Name: Delivery Method: HAND - Hand Delivered Jennifer Days: Prior Verbal Notification: Recipient Understood Notice: Yes Recipient Signature: Med Rec Note Co-signed by Attending: Coverage Notice Comment: [facility] Reviewer: [id number] Nneka Orosco Notice Issued Date-Time: 07/27/2018 9:45 Notice Type: IM Discharge Notice Notice Delivered To: Patient Relationship to Patient: Knobber Name: Delivery Method: HAND - Hand Delivered Jennifer Days: Prior Verbal Notification: Recipient Understood Notice: Yes Recipient Signature: Yes Med Rec Note Co-signed by Attending: Coverage Notice Comment: Last DP export: 07/28/18 7:40 am Patient Name: GENESIS HOLLIS Page 09567 at 1018 All edits/amendments must be made on the electronic document DICTATION DATE: 07/28/18 1017 PRESS TOOL MAKER: JONNY 07/28/18 1017 RPT#: [id number] DC DATE: STATUS: ADM IN [facility] [address] [place] [address] END OF REPORT
--- NOTE | 2018-07-28 11:10 | MORECARE ---
CASE MANAGEMENT DISCHARGE SUMMARY PATIENT: GENESIS HOLLIS UNIT: [id number] ADM DATE: 07/16/18 AGE: 72 : 45 SEX: M ROOM/BED: D.210 AUTHOR: JOSE,DOC PHYSICIAN: REFERRING PHYSICIAN: IRMA CUMMINGS MD DATE OF SERVICE: 07/28/18 Discharge Plan Patient Name: GENESIS HOLLIS Facility: [facility]:[place] : 1945 Planned Disposition: Nursing Facility [facility] Cert Anticipated Discharge Date: 07/28/18 Discharge Date: Expected LOS: 12 Initial Reviewer: [id number] Initial Review Date: 07/22/2018 Generated: 07/28/18 12:09 pm Comments DCP- Discharge Planning Updated by [id number]: Carlos Orosco on 07/28/18 7:[address] Patient Name: GENESIS HOLLIS Encounter No: [id number] : 1945 Primary Insurance: MEDICARE A & B Anticipated DC Date: 07-28-2018 Planned Disposition: Nursing Facility [facility] Cert External Planned Provider: [facility], MEDICARE REHAB BED Discharge Planning Comments: CM CALLED AND SPOKE TO [facility], , FAX RECEIVED, THEY WILL ACCEPT TODAY AND PT WILL RETURN TO NURSING HOME CARE IN A SKILLED BED. NURSE REPORT TO BE CALLED TO [facility] AT [phone]. PT TO TRANSPORT VIA AMBULANCE. Reservoir Engineering Manager: Carlos Orosco DCP- Discharge Planning Updated by [id number]: Carlos Orosco on 07/28/18 6:[address] Patient Name: GENESIS HOLLIS Encounter No: [id number] : 1945 Primary Insurance: MEDICARE A & B Anticipated DC Date: Planned Disposition: Nursing Facility [facility] Cert External Planned Provider: [facility], [facility] MEDICAID BED Discharge Planning Comments: CM SPOKE TO BEDSIDE NURSE WHO INFORMED CM OF DISCHARGE TODAY. CM FAXED AVAILABLE DISCHARGE INFORMATION TO [facility] AT [phone]. CM SPOKE TO PT IN ROOM WHO IS IN AGREEMENT WITH RETURN TO THE ASSISTED TODAY. NURSE REPORT TO BE CALLED TO [facility] AT [phone]. PT TO TRANSPORT VIA AMBULANCE. Reservoir Engineering Manager: Carlos Irwin . DCP- Discharge Planning Updated by [id number]: Carlos Orosco on 07/27/18 8:[address] Patient Name: GENESIS HOLLIS Encounter No: [id number] : 1945 Primary Insurance: MEDICARE A & B Anticipated DC Date: Planned Disposition: Nursing Facility [facility] Cert External Planned Provider: [facility], LONG TERM CARE MEDICAID BED Discharge Planning Comments: CM RECEIVED CALL FROM [facility] REQUESTING HOSPITAL UPDATE. CM FAXED HOSPITAL UPDATE TO [facility] AT [phone]. CM SPOKE TO PT IN ROOM DISCUSSED DISCHARGE PLANNING AND NEEDS. PT DENIES NEEDS, IN AGREEMENT WITH PLAN TO RETURN TO THE ASSISTED AT DISCHARGE. IMPORTANT MESSAGE FROM MEDICARE PROVIDED AND EXPLAINED. FOR DISCHARGE BACK TO NURSING HOME CARE AT [facility], FAX DISCHARGE INFORMATION TO [phone]. NURSE REPORT TO BE CALLED TO [facility] AT [phone]. PT TO TRANSPORT VIA AMBULANCE. Reservoir Engineering Manager: Carlos Orosco DCP- Discharge Planning Updated by [id number]: Carlos Orosco on 07/25/18 8:[address] Patient Name: GENESIS HOLLIS Encounter No: [id number] : 1945 Primary Insurance: MEDICARE A & B Anticipated DC Date: Planned Disposition: Nursing Facility [facility] Cert External Planned Provider: [facility], LONG TERM CARE MEDICAID BED Discharge Planning Comments: CM FAXED HOSPITAL UPDATE TO [facility] AT [phone]. FOR DISCHARGE BACK TO [facility] AT [facility], FAX DISCHARGE INFORMATION TO [phone]. NURSE REPORT TO BE CALLED TO [facility] AT [phone]. PT TO TRANSPORT VIA AMBULANCE. Reservoir Engineering Manager: Carlos Orosco DCP- Discharge Planning Updated by [id number]: Carlos Orosco on 07/22/18 10:[address] Patient Name: GENESIS HOLLIS Admission Status: Elective Accout number: [id number] Admission Date: 07-16-2018 : 1945 Admission Diagnosis:SEPSIS, UNSPECIFIED ORGANISM Attending: IRMA CUMMINGS Current LOS: 6 Anticipated DC Date: Planned Disposition: Nursing Facility [facility] Cert Primary Insurance: MEDICARE A & B PLANNED EXTERNAL PROVIDER: [facility] TERM CARE MEDICAID BED Discharge Planning Comments: CM HEARD PT CONTINUALLY YELLING "HELP" FROM ROOM. CM MET WITH PT IN ROOM AND ASKED WHAT PT NEEDS HELP WITH. PT STATES HE DOES NOT KNOW. CM ASKED TO DISCUSS DISCHARGE PLANNING AND NEEDS. PT REPORTS LIVING AT HOME INDEPENDENTLY AND ALONE ABOUT THREE MILES FROM HERE. CM ASKED PT WHERE HE IS AT NOW, PT STATES HOSPITAL AND I'M TIRED OF BEING HERE. . PT REPORTS HAVING NO MEDICAL EQUIPMENT AND NO OUTSIDE SERVICES ASSISTING IN THE HOME. CM DISCUSSED ASSISTED CARE PT'S CHART INDICATES PT BEING FROM LOCAL ASSISTED. PT STATES THAT HE IS STAYING AT [facility] AND HAD BEEN GETTING REHAB THERE. PT STATES HE IS GOING BACK THERE FROM THE HOSPITAL AND WANTS TO GO NOW. CM EXPLAINED THAT THE DOCTOR NEEDS TO DISCHARGE HIM WHEN STABLE TO RETURN TO [facility]. PT REPORTS UNDERSTANDING. CM EXPLAINED CALL LIGHT USE FOR ASSISTANCE. PT STATES IT DOES NOT WORK. CM DEMONSTRATED HOW TO PUSH THE BUTTON AND IT DID WORK . PT STATES HE WILL JUST CALL OUT FOR HELP WHEN HE NEEDS IT. PT CHOICE WAS NOT SIGNED BY PT HE STATES HE CANNOT, CHOICE COMPLETED. CM SPOKE TO [facility] AT NURSES STATION, [facility] REPORTS PT IS IN [facility] AT [facility] AND THEY WILL ACCEPT BACK FOR CONTINUED CARE AT DISCHARGE. CM FAXED HOSPITAL UPDATE TO [facility] AT [phone]. FOR DISCHARGE BACK TO [facility] AT [facility], FAX DISCHARGE INFORMATION TO [phone]. NURSE REPORT TO BE CALLED TO [facility] AT [phone]. PT TO TRANSPORT VIA AMBULANCE. Reservoir Engineering Manager: Carlos Orosco DCPIA - Discharge Planning Initial Assessment Updated by [id number]: Carlos Orosco on 07/22/18 10:54 am * Is the patient Alert and Oriented? Yes * How many steps to enter\\exit or inside your home? NONE * PCP DR. CUMMINGS * [facility] * Preadmission Environment [employer] [facility] * Facility Name [facility] * ADLs Total Dependent * Equipment Other * Other Equipment ALL MEDICAL EQUIPMENT PROVIDED BY FACILITY * List name and contact numbers for known caregivers / representatives who currently or will assist patient after discharge: HUDSON WOODWARD, FRIEND, MALGORZATA PRICE, FRIEND, * Verbal permission to speak to the caregivers and representatives has been obtained from the patient. No * Community resources currently utilized None * Please name any agencies selected above. NONE * Additional services required to return to the preadmission environment? No * Can the patient safely return to the preadmission environment? Yes * Has this patient been hospitalized within the prior 30 days at any hospital? Yes External Providers External Provider: MAJOR Frederick Next Contact Date: 07/28/2018 Service Request Date: Service Type: Resolution: Reviewer: Comments: Coverage Notice Reviewer: [id number] Nneka Orosco Notice Issued Date-Time: 07/22/2018 9:15 Notice Type: Patient Choice Letter Notice Delivered To: Patient Relationship to Patient: Miller Head Assistant Wet Process Name: Delivery Method: HAND - Hand Delivered Jennifer Days: Prior Verbal Notification: Recipient Understood Notice: Yes Recipient Signature: Med Rec Note Co-signed by Attending: Coverage Notice Comment: [facility] Reviewer: [id number] Nneka Orosco Notice Issued Date-Time: 07/27/2018 9:45 Notice Type: IM Discharge Notice Notice Delivered To: Patient Relationship to Patient: Miller Head Assistant Wet Process Name: Delivery Method: HAND - Hand Delivered Jennifer Days: Prior Verbal Notification: Recipient Understood Notice: Yes Recipient Signature: Yes Med Rec Note Co-signed by Attending: Coverage Notice Comment: Last DP export: 07/28/18 9:18 am Patient Name: GENESIS HOLLIS Page 70483 at 1110 All edits/amendments must be made on the electronic document DICTATION DATE: 07/28/189 EXCAVATOR OPERATOR: JONNY 07/28/18 1109 RPT#: [id number] DC DATE: STATUS: ADM IN [facility] [address] [place] [address] END OF REPORT
--- NOTE | 2018-07-28 11:26 | MORECARE ---
CASE MANAGEMENT DISCHARGE SUMMARY PATIENT: GENESIS HOLLIS UNIT: [id number] ADM DATE: 07/16/18 AGE: 72 : 45 SEX: M ROOM/BED: D.2103 AUTHOR: JOSE,DOC PHYSICIAN: REFERRING PHYSICIAN: IRMA CUMMINGS MD DATE OF SERVICE: 07/28/18 Discharge Plan Patient Name: GENESIS HOLLIS Facility: [facility]:[place] : 1945 Planned Disposition: Nursing Facility [facility] Cert Anticipated Discharge Date: 07/28/18 Discharge Date: Expected LOS: 12 Initial Reviewer: [id number] Initial Review Date: 07/22/2018 Generated: 07/28/18 12:25 pm Comments DCP- Discharge Planning Updated by [id number]: Carlos Orosco on 07/28/18 10:[address] Patient Name: GENESIS HOLLIS Encounter No: [id number] : 1945 Primary Insurance: MEDICARE A & B Anticipated DC Date: 07-28-2018 Planned Disposition: Nursing Facility [facility] Cert External Planned Provider:[facility], MEDICARE REHAB BED Discharge Planning Comments: CM CALLED AND SPOKE TO [facility], , FAX RECEIVED, THEY WILL ACCEPT TODAY BUT NEED A KANIKA TO RETURN. CM NOTIFIED DR. CUMMINGS, COMPLETED KANIKA, OBTAINED DR MELO, FAXED TO [facility] WITH REQUEST FOR EXPEDITED REVIEW,[phone]. [facility] WILL NOT ACCEPT UNTIL CLEARED FOR ADMISSION BY [facility]. CM WAITING ON KANIKA SCREENING. Environmental Health Sanitarian: Carlos Orosco DCP- Discharge Planning Updated by [id number]: Carlos Orosco on 07/28/18 7:[address] Patient Name: GENESIS HOLLIS Encounter No: [id number] : 1945 Primary Insurance: MEDICARE A & B Anticipated DC Date: 07-28-2018 Planned Disposition: Nursing Facility [facility] Cert External Planned Provider: [facility], MEDICARE REHAB BED Discharge Planning Comments: CM CALLED AND SPOKE TO [facility], , FAX RECEIVED, THEY WILL ACCEPT TODAY AND PT WILL RETURN TO [facility] IN A SKILLED BED. NURSE REPORT TO BE CALLED TO [facility] AT [phone]. PT TO TRANSPORT VIA AMBULANCE. Environmental Health Sanitarian: Carlos Orosco DCP- Discharge Planning Updated by [id number]: Carlos Orosco on 07/28/18 6:[address] Patient Name: GENESIS HOLLIS Encounter No: [id number] : 1945 Primary Insurance: MEDICARE A & B Anticipated DC Date: Planned Disposition: Nursing Facility [facility] Cert External Planned Provider: [facility], LONG TERM CARE MEDICAID BED Discharge Planning Comments: CM SPOKE TO BEDSIDE NURSE WHO INFORMED CM OF DISCHARGE TODAY. CM FAXED AVAILABLE DISCHARGE INFORMATION TO [facility] AT [phone]. CM SPOKE TO PT IN ROOM WHO IS IN AGREEMENT WITH RETURN TO THE SKILLED NURSING TODAY. NURSE REPORT TO BE CALLED TO [facility] AT [phone]. PT TO TRANSPORT VIA AMBULANCE. Environmental Health Sanitarian: Carlos Irwin . DCP- Discharge Planning Updated by [id number]: Carlos Orosco on 07/27/18 8:[address] Patient Name: GENESIS HOLLIS Encounter No: [id number] : 1945 Primary Insurance: MEDICARE A & B Anticipated DC Date: Planned Disposition: Nursing Facility [facility] Cert External Planned Provider: [facility], LONG TERM CARE MEDICAID BED Discharge Planning Comments: CM RECEIVED CALL FROM [facility] REQUESTING HOSPITAL UPDATE. CM FAXED HOSPITAL UPDATE TO [facility] AT [phone]. CM SPOKE TO PT IN ROOM DISCUSSED DISCHARGE PLANNING AND NEEDS. PT DENIES NEEDS, IN AGREEMENT WITH PLAN TO RETURN TO THE SKILLED NURSING AT DISCHARGE. IMPORTANT MESSAGE FROM MEDICARE PROVIDED AND EXPLAINED. FOR DISCHARGE BACK TO [facility] AT [facility], FAX DISCHARGE INFORMATION TO [phone]. NURSE REPORT TO BE CALLED TO [facility] AT [phone]. PT TO TRANSPORT VIA AMBULANCE. Environmental Health Sanitarian: Carlos Orosco DCP- Discharge Planning Updated by [id number]: Carlos Orosco on 07/25/18 8:[address] Patient Name: GENESIS HOLLIS Encounter No: [id number] : 1945 Primary Insurance: MEDICARE A & B Anticipated DC Date: Planned Disposition: Nursing Facility [facility] Cert External Planned Provider: [facility], LONG TERM CARE MEDICAID BED Discharge Planning Comments: CM FAXED HOSPITAL UPDATE TO [facility] AT [phone]. FOR DISCHARGE BACK TO INTERMEDIATE CARE AT [facility], FAX DISCHARGE INFORMATION TO [phone]. NURSE REPORT TO BE CALLED TO [facility] AT [phone]. PT TO TRANSPORT VIA AMBULANCE. Environmental Health Sanitarian: Carlos Orosco DCP- Discharge Planning Updated by [id number]: Carlos Orosco on 07/22/18 10:[address] Patient Name: GENESIS HOLLIS Admission Status: Elective Accout number: [id number] Admission Date: 07-16-2018 : 1945 Admission Diagnosis:SEPSIS, UNSPECIFIED ORGANISM Attending: IRMA CUMMINGS Current LOS: 6 Anticipated DC Date: Planned Disposition: Nursing Facility [facility] Primary Insurance: MEDICARE A & B PLANNED EXTERNAL PROVIDER: [facility], INTERMEDIATE CARE MEDICAID BED Discharge Planning Comments: CM HEARD PT CONTINUALLY YELLING "HELP" FROM ROOM. CM MET WITH PT IN ROOM AND ASKED WHAT PT NEEDS HELP WITH. PT STATES HE DOES NOT KNOW. CM ASKED TO DISCUSS DISCHARGE PLANNING AND NEEDS. PT REPORTS LIVING AT HOME INDEPENDENTLY AND ALONE ABOUT THREE MILES FROM HERE. CM ASKED PT WHERE HE IS AT NOW, PT STATES HOSPITAL AND I'M TIRED OF BEING HERE. . PT REPORTS HAVING NO MEDICAL EQUIPMENT AND NO OUTSIDE SERVICES ASSISTING IN THE HOME. CM DISCUSSED SKILLED NURSING CARE PT'S CHART INDICATES PT BEING FROM LOCAL SKILLED NURSING. PT STATES THAT HE IS STAYING AT [facility] AND HAD BEEN GETTING REHAB THERE. PT STATES HE IS GOING BACK THERE FROM THE HOSPITAL AND WANTS TO GO NOW. CM EXPLAINED THAT THE DOCTOR NEEDS TO DISCHARGE HIM WHEN STABLE TO RETURN TO [facility]. PT REPORTS UNDERSTANDING. CM EXPLAINED CALL LIGHT USE FOR ASSISTANCE. PT STATES IT DOES NOT WORK. CM DEMONSTRATED HOW TO PUSH THE BUTTON AND IT DID WORK . PT STATES HE WILL JUST CALL OUT FOR HELP WHEN HE NEEDS IT. PT CHOICE WAS NOT SIGNED BY PT HE STATES HE CANNOT, CHOICE COMPLETED. CM SPOKE TO [facility] AT NURSES STATION, [facility] REPORTS PT IS IN [facility] AT [facility] AND THEY WILL ACCEPT BACK FOR CONTINUED CARE AT DISCHARGE. CM FAXED HOSPITAL UPDATE TO [facility] AT [phone]. FOR DISCHARGE BACK TO [facility] AT [facility], FAX DISCHARGE INFORMATION TO [phone]. NURSE REPORT TO BE CALLED TO [facility] AT [phone]. PT TO TRANSPORT VIA AMBULANCE. Environmental Health Sanitarian: Carlos Orosco DCPIA - Discharge Planning Initial Assessment Updated by [id number]: Carlos Orocso on 07/22/18 10:54 am * Is the patient Alert and Oriented? Yes * How many steps to enter\\exit or inside your home? NONE * PCP DR. CUMMINGS * Pharm[facility] * Preadmission Environment [employer] Term * Facility Name [facility] * ADLs Total Dependent * Equipment Other * Other Equipment ALL MEDICAL EQUIPMENT PROVIDED BY FACILITY * List name and contact numbers for known caregivers / representatives who currently or will assist patient after discharge: HUDSON WOODWARD, FRIEND, MALGORZATA PRICE, FRIEND, * Verbal permission to speak to the caregivers and representatives has been obtained from the patient. No * Community resources currently utilized None * Please name any agencies selected above. NONE * Additional services required to return to the preadmission environment? No * Can the patient safely return to the preadmission environment? Yes * Has this patient been hospitalized within the prior 30 days at any hospital? Yes Coverage Notice Reviewer: [id number] Nneka Orosco Notice Issued Date-Time: 07/22/2018 9:15 Notice Type: Patient Choice Letter Notice Delivered To: Patient Relationship to Patient: Manpower Development Advisor Name: Delivery Method: HAND - Hand Delivered Jennifer Days: Prior Verbal Notification: Recipient Understood Notice: Yes Recipient Signature: Med Rec Note Co-signed by Attending: Coverage Notice Comment: [facility] Reviewer: [id number] Nneka Orosco Notice Issued Date-Time: 07/27/2018 9:45 Notice Type: IM Discharge Notice Notice Delivered To: Patient Relationship to Patient: Manpower Development Advisor Name: Delivery Method: HAND - Hand Delivered Jennifer Days: Prior Verbal Notification: Recipient Understood Notice: Yes Recipient Signature: Yes Med Rec Note Co-signed by Attending: Coverage Notice Comment: Last DP export: 07/28/18 10:09 am Patient Name: GENESIS HOLLIS Page [id number] at 1126 All edits/amendments must be made on the electronic document DICTATION DATE: 07/28/18 1125 WELL TESTING OPERATOR: JONNY 07/28/18 1125 RPT#: [id number] DC DATE: STATUS: ADM IN [facility] [address] [place] [address] END OF REPORT
[2018-07-28 11:39] VITALS: BP 138/81
--- NOTE | 2018-07-28 11:54 | MORECARE ---
CASE MANAGEMENT DISCHARGE SUMMARY PATIENT: GENESIS HOLLIS UNIT: [id number] ADM DATE: 07/16/18 AGE: 72 : 45 SEX: M ROOM/BED: D.2106 AUTHOR: JOSE,DOC PHYSICIAN: REFERRING PHYSICIAN: IRMA CUMMINGS MD DATE OF SERVICE: 07/28/18 Discharge Plan Patient Name: GENESIS HOLLIS Facility: [facility]:[place] : 1945 Planned Disposition: Nursing Facility [facility] Cert Anticipated Discharge Date: 07/28/18 Discharge Date: Expected LOS: 12 Initial Reviewer: ALEX Initial Review Date: 07/22/2018 Generated: 07/28/18 12:54 pm Comments DCP- Discharge Planning Updated by [id number]: Carlos Orosco on 07/28/18 10:[address] Patient Name: GENESIS HOLLIS Encounter No: [id number] : 1945 Primary Insurance: MEDICARE A & B Anticipated DC Date: 07-28-2018 Planned Disposition: Nursing Facility [facility] Cert External Planned Provider: [facility] DC follow-up note: CM RECEIVED DISCHARGE ORDER, MET WITH PT IN ROOM WHO REPORTS HE WANTS TO GO HOME AND WILL ACCEPT HOME HEALTH, [facility] IS ON THE WAY TO PICK HIM UP NOW. CM NOTIFIED RANDALL HART, HOME HEALTH ORDER OBTAINED. CM CALLED [facility] OFFICE, , SPOKE TO NATHALY WHO ACCEPTED REFERRAL FOR HOME HEALTH AND REPORTS CM WILL NEED TO CALL DR. ABEBE TO ENSURE HE WILL SIGN ORDERS. CM FAXED REFERRAL AND DISCHARGE INFORAMTION TO [facility] AT [phone]. CM CALLED DR. GEOFF ABEBE IN [facility], , LEFT DETAILED MESSAGE FOR NURSE JONES. CM WAITING RETURN CALL. VAT TENDER NOTIFIED. PT NOTIFIED WHO STATES IT WOULD BE OK WITH HIM IF HE CANNOT GET HOME HEALTH, HE WANTS TO GO HOME NOW, WITH OR WITHOUT HOME HEALTH. [facility] WILL ACCEPT PT FOR HOME HEALTH SERVICES IF PRIMARY CARE DOCTOR WILL SIGN ORDERS. CM WAITING RETURN CALL FROM DR. ABEBE'S OFFICE. Carlos Orosco CASE MANAGEMENT DCP- Discharge Planning Updated by [id number]: Carlos Orosco on 07/28/18 10:[address] Patient Name: GENESIS HOLLIS Encounter No: [id number] : 1945 Primary Insurance: MEDICARE A & B Anticipated DC Date: 07-28-2018 Planned Disposition: Nursing Facility [facility] Cert External Planned Provider:[facility], MEDICARE REHAB BED Discharge Planning Comments: CM CALLED AND SPOKE TO [facility], , FAX RECEIVED, THEY WILL ACCEPT TODAY BUT NEED A KANIKA TO RETURN. CM NOTIFIED DR. CUMMINGS, COMPLETED KANIKA, OBTAINED DR MELO, FAXED TO [facility] WITH REQUEST FOR EXPEDITED REVIEW,[phone]. [facility] WILL NOT ACCEPT UNTIL CLEARED FOR ADMISSION BY [facility]. CM WAITING ON KANIKA SCREENING. Dispatcher Service Chief: Carlos Orosco DCP- Discharge Planning Updated by [id number]: Carlos Orosco on 07/28/18 7:[address] Patient Name: GENESIS HOLLIS Encounter No: [id number] : 1945 Primary Insurance: MEDICARE A & B Anticipated DC Date: 07-28-2018 Planned Disposition: Nursing Facility [facility] Cert External Planned Provider: [facility], MEDICARE REHAB BED Discharge Planning Comments: CM CALLED AND SPOKE TO [facility], , FAX RECEIVED, THEY WILL ACCEPT TODAY AND PT WILL RETURN TO SNF CARE IN A SKILLED BED. NURSE REPORT TO BE CALLED TO [facility] AT [phone]. PT TO TRANSPORT VIA AMBULANCE. Dispatcher Service Chief: Carlos Orosco DCP- Discharge Planning Updated by [id number]: Carlos Orosco on 07/28/18 6:[address] Patient Name: GENESIS HOLLIS Encounter No: [id number] : 1945 Primary Insurance: MEDICARE A & B Anticipated DC Date: Planned Disposition: Nursing Facility [facility] Cert External Planned Provider: [facility], [facility] MEDICAID BED Discharge Planning Comments: CM SPOKE TO BEDSIDE NURSE WHO INFORMED CM OF DISCHARGE TODAY. CM FAXED AVAILABLE DISCHARGE INFORMATION TO [facility] AT [phone]. CM SPOKE TO PT IN ROOM WHO IS IN AGREEMENT WITH RETURN TO THE ALF TODAY. NURSE REPORT TO BE CALLED TO [facility] AT [phone]. PT TO TRANSPORT VIA AMBULANCE. Dispatcher Service Chief: Carlos BraswellThomas . DCP- Discharge Planning Updated by [id number]: Carlos Orosco on 07/27/18 8:[address] Patient Name: GENESIS HOLLIS Encounter No: [id number] : 1945 Primary Insurance: MEDICARE A & B Anticipated DC Date: Planned Disposition: Nursing Facility [facility] Cert External Planned Provider: [facility] AND [facility] MEDICAID BED Discharge Planning Comments: CM RECEIVED CALL FROM [facility] REQUESTING HOSPITAL UPDATE. CM FAXED HOSPITAL UPDATE TO [facility] AT [phone]. CM SPOKE TO PT IN ROOM DISCUSSED DISCHARGE PLANNING AND NEEDS. PT DENIES NEEDS, IN AGREEMENT WITH PLAN TO RETURN TO THE ALF AT DISCHARGE. IMPORTANT MESSAGE FROM MEDICARE PROVIDED AND EXPLAINED. FOR DISCHARGE BACK TO [facility] AT [facility], FAX DISCHARGE INFORMATION TO [phone]. NURSE REPORT TO BE CALLED TO [facility] AT [phone]. PT TO TRANSPORT VIA AMBULANCE. Dispatcher Service Chief: Carlos Orosco DCP- Discharge Planning Updated by [id number]: Carlos Orosco on 07/25/18 8:[address] Patient Name: GENESIS HOLLIS Encounter No: [id number] : 1945 Primary Insurance: MEDICARE A & B Anticipated DC Date: Planned Disposition: Nursing Facility [facility] Cert External Planned Provider: [facility], LONG TERM CARE MEDICAID BED Discharge Planning Comments: CM FAXED HOSPITAL UPDATE TO [facility] AT [phone]. FOR DISCHARGE BACK TO [facility] AT [facility], FAX DISCHARGE INFORMATION TO [phone]. NURSE REPORT TO BE CALLED TO [facility] AT [phone]. PT TO TRANSPORT VIA AMBULANCE. Dispatcher Service Chief: Carlos Orosco DCP- Discharge Planning Updated by [id number]: Carlos Orosco on 07/22/18 10:[address] Patient Name: GENESIS HOLLIS Admission Status: Elective Accout number: [id number] Admission Date: 07-16-2018 : 1945 Admission Diagnosis:SEPSIS, UNSPECIFIED ORGANISM Attending: IRMA CUMMINGS Current LOS: 6 Anticipated DC Date: Planned Disposition: Nursing Facility [facility] Cert Primary Insurance: MEDICARE A & B PLANNED EXTERNAL PROVIDER: [facility] AND [facility] MEDICAID BED Discharge Planning Comments: CM HEARD PT CONTINUALLY YELLING "HELP" FROM ROOM. CM MET WITH PT IN ROOM AND ASKED WHAT PT NEEDS HELP WITH. PT STATES HE DOES NOT KNOW. CM ASKED TO DISCUSS DISCHARGE PLANNING AND NEEDS. PT REPORTS LIVING AT HOME INDEPENDENTLY AND ALONE ABOUT THREE MILES FROM HERE. CM ASKED PT WHERE HE IS AT NOW, PT STATES HOSPITAL AND I'M TIRED OF BEING HERE. . PT REPORTS HAVING NO MEDICAL EQUIPMENT AND NO OUTSIDE SERVICES ASSISTING IN THE HOME. CM DISCUSSED ALF CARE PT'S CHART INDICATES PT BEING FROM LOCAL ALF. PT STATES THAT HE IS STAYING AT [facility] AND HAD BEEN GETTING REHAB THERE. PT STATES HE IS GOING BACK THERE FROM THE HOSPITAL AND WANTS TO GO NOW. CM EXPLAINED THAT THE DOCTOR NEEDS TO DISCHARGE HIM WHEN STABLE TO RETURN TO [facility]. PT REPORTS UNDERSTANDING. CM EXPLAINED CALL LIGHT USE FOR ASSISTANCE. PT STATES IT DOES NOT WORK. CM DEMONSTRATED HOW TO PUSH THE BUTTON AND IT DID WORK . PT STATES HE WILL JUST CALL OUT FOR HELP WHEN HE NEEDS IT. PT CHOICE WAS NOT SIGNED BY PT HE STATES HE CANNOT, CHOICE COMPLETED. CM SPOKE TO [facility] AT NURSES STATION, [facility] REPORTS PT IS IN SNF CARE AT [facility] AND THEY WILL ACCEPT BACK FOR CONTINUED CARE AT DISCHARGE. CM FAXED HOSPITAL UPDATE TO [facility] AT [phone]. FOR DISCHARGE BACK TO [facility] AT [facility], FAX DISCHARGE INFORMATION TO [phone]. NURSE REPORT TO BE CALLED TO [facility] AT [phone]. PT TO TRANSPORT VIA AMBULANCE. Dispatcher Service Chief: Carlos Orosco DCPIA - Discharge Planning Initial Assessment Updated by [id number]: Carlos Orosco on 07/22/18 10:54 am * Is the patient Alert and Oriented? Yes * How many steps to enter\\exit or inside your home? NONE * PCP DR. CUMMINGS * [facility] * Preadmission Environment Removable Prosthodontist Residential * Facility Name [facility] * ADLs Total Dependent * Equipment Other * Other Equipment ALL MEDICAL EQUIPMENT PROVIDED BY FACILITY * List name and contact numbers for known caregivers / representatives who currently or will assist patient after discharge: HUDSON WOODWARD, FRIEND, MALGORZATA PRICE, FRIEND, * Verbal permission to speak to the caregivers and representatives has been obtained from the patient. No * Community resources currently utilized None * Please name any agencies selected above. NONE * Additional services required to return to the preadmission environment? No * Can the patient safely return to the preadmission environment? Yes * Has this patient been hospitalized within the prior 30 days at any hospital? Yes Coverage Notice Reviewer: [id number] Nneka Orosco Notice Issued Date-Time: 07/22/2018 9:15 Notice Type: Patient Choice Letter Notice Delivered To: Patient Relationship to Patient: Inspector Of Weights And Measures Name: Delivery Method: HAND - Hand Delivered Jennifer Days: Prior Verbal Notification: Recipient Understood Notice: Yes Recipient Signature: Med Rec Note Co-signed by Attending: Coverage Notice Comment: [facility] AND [facility] Reviewer: [id number] Nneka Orosco Notice Issued Date-Time: 07/27/2018 9:45 Notice Type: IM Discharge Notice Notice Delivered To: Patient Relationship to Patient: Inspector Of Weights And Measures Name: Delivery Method: HAND - Hand Delivered Jennifer Days: Prior Verbal Notification: Recipient Understood Notice: Yes Recipient Signature: Yes Med Rec Note Co-signed by Attending: Coverage Notice Comment: Last DP export: 07/28/18 10:25 am Patient Name: GENESIS HOLLIS Page 62506 at 1154 All edits/amendments must be made on the electronic document DICTATION DATE: 07/28/18 115 DIRECT OF REAL ESTATE: JONNY 07/28/18 1154 RPT#: [id number] DC DATE: STATUS: ADM IN [facility] [address] [place] [address] END OF REPORT
--- NOTE | 2018-07-28 14:19 | NUR ---
STILL WAITING TO SEE ABOUT PT BEING ACCEPTED BACK TO [facility] IN [place]. PT RESTING QUIETLY IN BED. TURNED PT ONTO HIS L.SIDE TO RELIEVE PRESSURE. PT VOICED THANKS AND DENIES ANY CURRENT PAIN OR NEEDS AT THIS TIME. CL IN REACH, BED IN LOWEST, SIDE RAILS X2. WILL CTM.
[2018-07-28 15:37] VITALS: BP 123/81
--- NOTE | 2018-07-28 16:17 | MORECARE ---
CASE MANAGEMENT DISCHARGE SUMMARY PATIENT: GENESIS HOLLIS UNIT: [id number] ADM DATE: 07/16/18 AGE: 72 : 45 SEX: M ROOM/BED: D.2103 AUTHOR: JOSE,DOC PHYSICIAN: REFERRING PHYSICIAN: IRMA CUMMINGS MD DATE OF SERVICE: 07/28/18 Discharge Plan Patient Name: GENESIS HOLLIS Facility: [facility]:[place] : 1945 Planned Disposition: Nursing Facility [facility] Cert Anticipated Discharge Date: 07/29/18 Discharge Date: Expected LOS: 13 Initial Reviewer: [id number] Initial Review Date: 07/22/2018 Generated: 07/28/18 5:17 pm Comments DCP- Discharge Planning Updated by [id number]: Carlos Orosco on 07/28/18 10:[address] Patient Name: GENESIS HOLLIS Encounter No: [id number] : 1945 Primary Insurance: MEDICARE A & B Anticipated DC Date: 07-28-2018 Planned Disposition: Nursing Facility [facility] Cert External Planned Provider:[facility], MEDICARE REHAB BED Discharge Planning Comments: CM CALLED AND SPOKE TO [facility], , FAX RECEIVED, THEY WILL ACCEPT TODAY BUT NEED A KANIKA TO RETURN. CM NOTIFIED DR. CUMMINGS, COMPLETED KANIKA, OBTAINED DR MELO, FAXED TO [employer] WITH REQUEST FOR EXPEDITED REVIEW,[phone]. [facility] WILL NOT ACCEPT UNTIL CLEARED FOR [facility]ION BY [facility]. CM WAITING ON KANIKA SCREENING. Prep Cook: Carlos Orosco DCP- Discharge Planning Updated by [id number]: Carlos Orosco on 07/28/18 7:[address] Patient Name: GENESIS HOLLIS Encounter No: [id number] : 1945 Primary Insurance: MEDICARE A & B Anticipated DC Date: 07-28-2018 Planned Disposition: Nursing Facility [facility] Cert External Planned Provider: [facility], MEDICARE REHAB BED Discharge Planning Comments: CM CALLED AND SPOKE TO [facility], , FAX RECEIVED, THEY WILL ACCEPT TODAY AND PT WILL RETURN TO FLOOR TECH CARE IN A SKILLED BED. NURSE REPORT TO BE CALLED TO [facility] AT [phone]. PT TO TRANSPORT VIA AMBULANCE. Prep Cook: Carlos Orosco DCP- Discharge Planning Updated by [id number]: Carlos Orosco on 07/28/18 6:[address] Patient Name: GENESIS HOLLIS Encounter No: [id number] : 1945 Primary Insurance: MEDICARE A & B Anticipated DC Date: Planned Disposition: Nursing Facility [facility] Cert External Planned Provider: [facility], LONG TERM CARE MEDICAID BED Discharge Planning Comments: CM SPOKE TO BEDSIDE NURSE WHO INFORMED CM OF DISCHARGE TODAY. CM FAXED AVAILABLE DISCHARGE INFORMATION TO [facility] AT [phone]. CM SPOKE TO PT IN ROOM WHO IS IN AGREEMENT WITH RETURN TO THE RESIDENTIAL TODAY. NURSE REPORT TO BE CALLED TO [facility] AT [phone]. PT TO TRANSPORT VIA AMBULANCE. Prep Cook: Carlos Irwin . DCP- Discharge Planning Updated by [id number]: Carlos Orosco on 07/27/18 8:[address] Patient Name: GENESIS HOLLIS Encounter No: [id number] : 1945 Primary Insurance: MEDICARE A & B Anticipated DC Date: Planned Disposition: Nursing Facility [facility] Cert External Planned Provider: [facility], LONG TERM CARE MEDICAID BED Discharge Planning Comments: CM RECEIVED CALL FROM [facility] OF [facility] REQUESTING HOSPITAL UPDATE. CM FAXED HOSPITAL UPDATE TO [facility] AT [phone]. CM SPOKE TO PT IN ROOM DISCUSSED DISCHARGE PLANNING AND NEEDS. PT DENIES NEEDS, IN AGREEMENT WITH PLAN TO RETURN TO THE RESIDENTIAL AT DISCHARGE. IMPORTANT MESSAGE FROM MEDICARE PROVIDED AND EXPLAINED. FOR DISCHARGE BACK TO FLOOR TECH CARE AT [facility], FAX DISCHARGE INFORMATION TO [phone]. NURSE REPORT TO BE CALLED TO [facility] AT [phone]. PT TO TRANSPORT VIA AMBULANCE. Prep Cook: Carlos Orosco DCP- Discharge Planning Updated by [id number]: Carlos Orosco on 07/25/18 8:[address] Patient Name: GENESIS HOLLIS Encounter No: [id number] : 1945 Primary Insurance: MEDICARE A & B Anticipated DC Date: Planned Disposition: Nursing Facility [facility] Cert External Planned Provider: [facility], LONG TERM CARE MEDICAID BED Discharge Planning Comments: CM FAXED HOSPITAL UPDATE TO [facility] AT [phone]. FOR DISCHARGE BACK TO DETENTION CARE AT [facility], FAX DISCHARGE INFORMATION TO [phone]. NURSE REPORT TO BE CALLED TO [facility] AT [phone]. PT TO TRANSPORT VIA AMBULANCE. Prep Cook: Carlos Orosco DCP- Discharge Planning Updated by [id number]: Carlos Orosco on 07/22/18 10:[address] Patient Name: GENESIS HOLLIS Admission Status: Elective Accout number: [id number] Admission Date: 07-16-2018 : 1945 Admission Diagnosis:SEPSIS, UNSPECIFIED ORGANISM Attending: IRMA CUMMINGS Current LOS: 6 Anticipated DC Date: Planned Disposition: Nursing Facility [facility] Primary Insurance: MEDICARE A & B PLANNED EXTERNAL PROVIDER: [facility], DETENTION CARE MEDICAID BED Discharge Planning Comments: CM HEARD PT CONTINUALLY YELLING "HELP" FROM ROOM. CM MET WITH PT IN ROOM AND ASKED WHAT PT NEEDS HELP WITH. PT STATES HE DOES NOT KNOW. CM ASKED TO DISCUSS DISCHARGE PLANNING AND NEEDS. PT REPORTS LIVING AT HOME INDEPENDENTLY AND ALONE ABOUT THREE MILES FROM HERE. CM ASKED PT WHERE HE IS AT NOW, PT STATES HOSPITAL AND I'M TIRED OF BEING HERE. . PT REPORTS HAVING NO MEDICAL EQUIPMENT AND NO OUTSIDE SERVICES ASSISTING IN THE HOME. CM DISCUSSED RESIDENTIAL CARE PT'S CHART INDICATES PT BEING FROM LOCAL RESIDENTIAL. PT STATES THAT HE IS STAYING AT [facility] AND HAD BEEN GETTING REHAB THERE. PT STATES HE IS GOING BACK THERE FROM THE HOSPITAL AND WANTS TO GO NOW. CM EXPLAINED THAT THE DOCTOR NEEDS TO DISCHARGE HIM WHEN STABLE TO RETURN TO [facility]. PT REPORTS UNDERSTANDING. CM EXPLAINED CALL LIGHT USE FOR ASSISTANCE. PT STATES IT DOES NOT WORK. CM DEMONSTRATED HOW TO PUSH THE BUTTON AND IT DID WORK . PT STATES HE WILL JUST CALL OUT FOR HELP WHEN HE NEEDS IT. PT CHOICE WAS NOT SIGNED BY PT HE STATES HE CANNOT, CHOICE COMPLETED. CM SPOKE TO CUR[facility] OF [facility] AT NURSES STATION, [facility] REPORTS PT IS IN FLOOR TECH CARE AT [facility] AND THEY WILL ACCEPT BACK FOR CONTINUED CARE AT DISCHARGE. CM FAXED HOSPITAL UPDATE TO [facility] AT [phone]. FOR DISCHARGE BACK TO FLOOR TECH CARE AT [facility], FAX DISCHARGE INFORMATION TO [phone]. NURSE REPORT TO BE CALLED TO [facility] AT [phone]. PT TO TRANSPORT VIA AMBULANCE. Prep Cook: Carlos Orosco DCPIA - Discharge Planning Initial Assessment Updated by [id number]: Carlos Orosco on 07/22/18 10:54 am * Is the patient Alert and Oriented? Yes * How many steps to enter\\exit or inside your home? NONE * PCP DR. CUMMINGS * Pharm[facility] * Preadmission Environment Chucking And Sawing Machine Operator Long Term * Facility Name [facility] * ADLs Total Dependent * Equipment Other * Other Equipment ALL MEDICAL EQUIPMENT PROVIDED BY FACILITY * List name and contact numbers for known caregivers / representatives who currently or will assist patient after discharge: HUDSON WOODWARD, FRIEND, MALGORZATA PRICE, FRIEND, * Verbal permission to speak to the caregivers and representatives has been obtained from the patient. No * Community resources currently utilized None * Please name any agencies selected above. NONE * Additional services required to return to the preadmission environment? No * Can the patient safely return to the preadmission environment? Yes * Has this patient been hospitalized within the prior 30 days at any hospital? Yes Coverage Notice Reviewer: [id number] Nneka Orosco Notice Issued Date-Time: 07/22/2018 9:15 Notice Type: Patient Choice Letter Notice Delivered To: Patient Relationship to Patient: Surgical Assist Name: Delivery Method: HAND - Hand Delivered Jennifer Days: Prior Verbal Notification: Recipient Understood Notice: Yes Recipient Signature: Med Rec Note Co-signed by Attending: Coverage Notice Comment: [facility] Reviewer: [id number] Nneka Orosco Notice Issued Date-Time: 07/27/2018 9:45 Notice Type: IM Discharge Notice Notice Delivered To: Patient Relationship to Patient: Surgical Assist Name: Delivery Method: HAND - Hand Delivered Jennifer Days: Prior Verbal Notification: Recipient Understood Notice: Yes Recipient Signature: Yes Med Rec Note Co-signed by Attending: Coverage Notice Comment: Last DP export: 07/28/18 10:54 am Patient Name: GENESIS HOLLIS Page 29659 at 1617 All edits/amendments must be made on the electronic document DICTATION DATE: 07/28/18 1616 PIE CRUST MIXER: JONNY 07/28/186 RPT#: [id number] ME DATE: STATUS: ADM IN [facility] [address] [facility] [place] [address] END OF REPORT
--- NOTE | 2018-07-28 16:27 | MORECARE ---
CASE MANAGEMENT DISCHARGE SUMMARY PATIENT: GENESIS HOLLIS UNIT: [id number] ADM DATE: 07/16/18 AGE: 72 : 45 SEX: M ROOM/BED: D.2105 AUTHOR: JOSE,DOC PHYSICIAN: REFERRING PHYSICIAN: IRMA CUMMINGS MD DATE OF SERVICE: 07/28/18 Discharge Plan Patient Name: GENESIS HOLLIS Facility: [facility]:[place] : 1945 Planned Disposition: Nursing Facility [facility] Cert Anticipated Discharge Date: 07/29/18 Discharge Date: Expected LOS: 13 Initial Reviewer: [id number] Initial Review Date: 07/22/2018 Generated: 07/28/18 5:26 pm Comments DCP- Discharge Planning Updated by [id number]: Carlos Orosco on 07/28/18 3:[address] Patient Name: GENESIS HOLLIS Encounter No: [id number] : 1945 Primary Insurance: MEDICARE A & B Anticipated DC Date: 07-29-2018 Planned Disposition: Nursing Facility [facility] Cert External Planned Provider: [facility], MEDICARE REHAB BED Discharge Planning Comments: CM RECEIVED KANIKA CLEARANCE TO RETURN TO NURSING FACILITY. CM CALLED AND SPOKE TO NICHOLAS OF [facility], , WHO STATED IT IS TOO LATE TO RETURN TODAY (CM OBSERVED CLOCK: 1600 HOURS) CM FAXED KANIKA APPROVAL TO [facility] AT [phone]. NICHOLAS SAID PT CAN RETURN AT 0800AM TOMORROW, 07-29-18. CM NOTIFIED BEDSIDE NURSE. CM PAGED DR. CUMMINGS. [facility] WILL ACCEPT PT 07-29-18 AT 0800 HOURS. NURSE REPORT TO BE CALLED TO [facility] AT [phone]. PT TO TRANSPORT VIA AMBULANCE. Kick Press Setter: Carlos Orosco DCP- Discharge Planning Updated by [id number]: Carlos Orosco on 07/28/18 10:[address] Patient Name: GENESIS HOLLIS Encounter No: [id number] : 1945 Primary Insurance: MEDICARE A & B Anticipated DC Date: 07-28-2018 Planned Disposition: Nursing Facility [facility] Cert External Planned Provider:[facility], MEDICARE REHAB BED Discharge Planning Comments: CM CALLED AND SPOKE TO [facility], , FAX RECEIVED, THEY WILL ACCEPT TODAY BUT NEED A KANIKA TO RETURN. CM NOTIFIED DR. CUMMINGS, COMPLETED KANIKA, OBTAINED DR MELO, FAXED TO [facility]IKA [facility] WITH REQUEST FOR EXPEDITED REVIEW,[phone]. [facility] WILL NOT ACCEPT UNTIL CLEARED FOR ADMISSION BY [facility]. CM WAITING ON KANIKA SCREENING. Kick Press Setter: Carlos Orosco DCP- Discharge Planning Updated by [id number]: Carlos Orosco on 07/28/18 7:[address] Patient Name: GENESIS HOLLIS Encounter No: [id number] : 1945 Primary Insurance: MEDICARE A & B Anticipated DC Date: 07-28-2018 Planned Disposition: Nursing Facility [facility] Cert External Planned Provider: [facility], MEDICARE REHAB BED Discharge Planning Comments: CM CALLED AND SPOKE TO [facility], , FAX RECEIVED, THEY WILL ACCEPT TODAY AND PT WILL RETURN TO [facility] IN A SKILLED BED. NURSE REPORT TO BE CALLED TO [facility] AT [phone]. PT TO TRANSPORT VIA AMBULANCE. Kick Press Setter: Carlos Orosco DCP- Discharge Planning Updated by [id number]: Carlos Orosco on 07/28/18 6:[address] Patient Name: GENESIS HOLLIS Encounter No: [id number] : 1945 Primary Insurance: MEDICARE A & B Anticipated DC Date: Planned Disposition: Nursing Facility [facility] Cert External Planned Provider: [facility], LENS MOUNTER CARE MEDICAID BED Discharge Planning Comments: CM SPOKE TO BEDSIDE NURSE WHO INFORMED CM OF DISCHARGE TODAY. CM FAXED AVAILABLE DISCHARGE INFORMATION TO [facility] AT [phone]. CM SPOKE TO PT IN ROOM WHO IS IN AGREEMENT WITH RETURN TO THE LONG TERM TODAY. NURSE REPORT TO BE CALLED TO [facility] AT [phone]. PT TO TRANSPORT VIA AMBULANCE. Kick Press Setter: Carlos Irwin . DCP- Discharge Planning Updated by [id number]: Carlos Orosco on 07/27/18 8:[address] Patient Name: GENESIS HOLLIS Encounter No: [id number] : 1945 Primary Insurance: MEDICARE A & B Anticipated DC Date: Planned Disposition: Nursing Facility [facility] Cert External Planned Provider: [facility], LONG TERM CARE MEDICAID BED Discharge Planning Comments: CM RECEIVED CALL FROM CURRY OF [facility] REQUESTING HOSPITAL UPDATE. CM FAXED HOSPITAL UPDATE TO [facility] AT [phone]. CM SPOKE TO PT IN ROOM DISCUSSED DISCHARGE PLANNING AND NEEDS. PT DENIES NEEDS, IN AGREEMENT WITH PLAN TO RETURN TO THE LONG TERM AT DISCHARGE. IMPORTANT MESSAGE FROM MEDICARE PROVIDED AND EXPLAINED. FOR DISCHARGE BACK TO [facility] AT [facility], FAX DISCHARGE INFORMATION TO [phone]. NURSE REPORT TO BE CALLED TO [facility] AT [phone]. PT TO TRANSPORT VIA AMBULANCE. Kick Press Setter: Carlos Orosco DCP- Discharge Planning Updated by [id number]: Carlos Orosco on 07/25/18 8:[address] Patient Name: GENESIS HOLLIS Encounter No: [id number] : 1945 Primary Insurance: MEDICARE A & B Anticipated DC Date: Planned Disposition: Nursing Facility [facility] Cert External Planned Provider: [facility], LONG TERM CARE MEDICAID BED Discharge Planning Comments: CM FAXED HOSPITAL UPDATE TO [facility] AT [phone]. FOR DISCHARGE BACK TO [facility] AT [facility], FAX DISCHARGE INFORMATION TO [phone]. NURSE REPORT TO BE CALLED TO [facility] AT [phone]. PT TO TRANSPORT VIA AMBULANCE. Kick Press Setter: Carlos Orosco DCP- Discharge Planning Updated by [id number]: Carlos Orosco on 07/22/18 10:[address] Patient Name: GENESIS HOLLIS Admission Status: Elective Accout number: [id number] Admission Date: 07-16-2018 : 1945 Admission Diagnosis:SEPSIS, UNSPECIFIED ORGANISM Attending: IRMA CUMMINGS Current LOS: 6 Anticipated DC Date: Planned Disposition: Nursing Facility [facility] Cert Primary Insurance: MEDICARE A & B PLANNED EXTERNAL PROVIDER: [facility], LONG TERM CARE MEDICAID BED Discharge Planning Comments: CM HEARD PT CONTINUALLY YELLING "HELP" FROM ROOM. CM MET WITH PT IN ROOM AND ASKED WHAT PT NEEDS HELP WITH. PT STATES HE DOES NOT KNOW. CM ASKED TO DISCUSS DISCHARGE PLANNING AND NEEDS. PT REPORTS LIVING AT HOME INDEPENDENTLY AND ALONE ABOUT THREE MILES FROM HERE. CM ASKED PT WHERE HE IS AT NOW, PT STATES HOSPITAL AND I'M TIRED OF BEING HERE. . PT REPORTS HAVING NO MEDICAL EQUIPMENT AND NO OUTSIDE SERVICES ASSISTING IN THE HOME. CM DISCUSSED LONG TERM CARE PT'S CHART INDICATES PT BEING FROM LOCAL LONG TERM. PT STATES THAT HE IS STAYING AT [facility] AND HAD BEEN GETTING REHAB THERE. PT STATES HE IS GOING BACK THERE FROM THE HOSPITAL AND WANTS TO GO NOW. CM EXPLAINED THAT THE DOCTOR NEEDS TO DISCHARGE HIM WHEN STABLE TO RETURN TO [facility]. PT REPORTS UNDERSTANDING. CM EXPLAINED CALL LIGHT USE FOR ASSISTANCE. PT STATES IT DOES NOT WORK. CM DEMONSTRATED HOW TO PUSH THE BUTTON AND IT DID WORK . PT STATES HE WILL JUST CALL OUT FOR HELP WHEN HE NEEDS IT. PT CHOICE WAS NOT SIGNED BY PT HE STATES HE CANNOT, CHOICE COMPLETED. CM SPOKE TO CURRY OF [facility] AT NURSES STATION, CURRY REPORTS PT IS IN [facility] AT [facility] AND THEY WILL ACCEPT BACK FOR CONTINUED CARE AT DISCHARGE. CM FAXED HOSPITAL UPDATE TO [facility] AT [phone]. FOR DISCHARGE BACK TO [facility] AT [facility], FAX DISCHARGE INFORMATION TO [phone]. NURSE REPORT TO BE CALLED TO [facility] AT [phone]. PT TO TRANSPORT VIA AMBULANCE. Kick Press Setter: Carlos Orosco DCPIA - Discharge Planning Initial Assessment Updated by [id number]: Carlos Orosco on 07/22/18 10:54 am * Is the patient Alert and Oriented? Yes * How many steps to enter\\exit or inside your home? NONE * PCP DR. CUMMINGS * [facility] * Preadmission Environment Long-Term Custodial * Facility Name [facility] * ADLs Total Dependent * Equipment Other * Other Equipment ALL MEDICAL EQUIPMENT PROVIDED BY FACILITY * List name and contact numbers for known caregivers / representatives who currently or will assist patient after discharge: HUDSON WOODWARD, FRIEND, MALGORZATA PRICE, FRIEND, * Verbal permission to speak to the caregivers and representatives has been obtained from the patient. No * Community resources currently utilized None * Please name any agencies selected above. NONE * Additional services required to return to the preadmission environment? No * Can the patient safely return to the preadmission environment? Yes * Has this patient been hospitalized within the prior 30 days at any hospital? Yes Coverage Notice Reviewer: [id number] - Carlos Orosco Notice Issued Date-Time: 07/22/2018 9:15 Notice Type: Patient Choice Letter Notice Delivered To: Patient Relationship to Patient: Benefit Specialist Name: Delivery Method: HAND - Hand Delivered Jennifer Days: Prior Verbal Notification: Recipient Understood Notice: Yes Recipient Signature: Med Rec Note Co-signed by Attending: Coverage Notice Comment: [facility] Reviewer: [id number] Nneka Orosco Notice Issued Date-Time: 07/27/2018 9:45 Notice Type: IM Discharge Notice Notice Delivered To: Patient Relationship to Patient: Benefit Specialist Name: Delivery Method: HAND - Hand Delivered Jennifer Days: Prior Verbal Notification: Recipient Understood Notice: Yes Recipient Signature: Yes Med Rec Note Co-signed by Attending: Coverage Notice Comment: Last DP export: 07/28/18 3:17 pm Patient Name: GENESIS HOLLIS Page 93201 at 1627 All edits/amendments must be made on the electronic document DICTATION DATE: 07/28/181625 WELL DRILL OPERATOR: JONNY 07/28/181625 RPT#: [id number] DC DATE: STATUS: ADM IN [facility] [address] [place] [address] END OF REPORT
--- NOTE | 2018-07-28 17:20 | NUR ---
[facility] STATES THEY WILL TAKE PT TOMORROW. PT VERBALIZED UNDERSTANDING HOWEVER HE STATES "WELL ITS FINE I BOUGHT THE HOUSE ANYWAYS AND CANT MAKE IT UNTIL TOMORROW" PT REMAINS PLEASANTLY CONFUSED AND DENIES ANY CURRENT PAIN OR NEEDS. CL IN REACH. WILL CTM.
[2018-07-28 20:00] VITALS: BP 128/70
--- NOTE | 2018-07-28 20:00 | NUR ---
PT IS ALERT, ORIENTED TO SELF. UNABLE TO REORIENT. PT DENIES PAIN. GAVE HONEY THICK WATER PER REQUEST. DENIES NEEDS AT THIS TIME OTHER THAN, "GETTING THE PLANE STARTED."
--- NOTE | 2018-07-29 03:31 | NUR ---
I have reviewed this patient and I concur with the Shift Assessment completed by the Licensed Practical Nurse today this shift.
[2018-07-29 04:00] VITALS: BP 130/68
[2018-07-29 07:56] VITALS: BP 131/84
--- NOTE | 2018-07-29 09:45 | NUR ---
CALLED AMBULANCE SERVICE [facility] SPOKE WITH IRAJ AND ESTIMATED TIME FOR TRANSPORTATION ABOUT 30-45MINS. CALLED [facility] AND CALLED REPORT TO FRED. WILL GET PT READY AT THIS TIME.
--- NOTE | 2018-07-29 09:56 | MORECARE ---
CASE MANAGEMENT DISCHARGE SUMMARY PATIENT: GENESIS HOLLIS UNIT: [id number] ADM DATE: 07/16/18 AGE: 72 : 45 SEX: M ROOM/BED: D.2105 AUTHOR: JOSE,DOC PHYSICIAN: REFERRING PHYSICIAN: IRMA CUMMINGS MD DATE OF SERVICE: 07/29/18 Discharge Plan Patient Name: GENESIS HOLLIS Facility: [facility]:[place] : 1945 Planned Disposition: Nursing Facility [facility] Cert Anticipated Discharge Date: 07/29/18 Discharge Date: Expected LOS: 13 Initial Reviewer: [id number] Initial Review Date: 07/22/2018 Generated: 07/29/18 10:56 am Comments DCP- Discharge Planning Updated by [id number]: Carlos Orosco on 07/29/18 8:[address] Patient Name: GENESIS HOLLIS Encounter No: [id number] : 1945 Primary Insurance: MEDICARE A & B Anticipated DC Date: 07-29-2018 Planned Disposition: Nursing Facility [facility] Cert External Planned Provider: [facility], MEDICARE REHAB BED Discharge Planning Comments: CM RECEIVED CALL FROM NICHOLAS [facility], , WHO STATED THEY ARE READY TO ACCEPT PT TODAY CM NOTIFIED BEDSIDE NURSE AND PERFUSIONIST NURSE. CM FAXED UPDATED DISCHARGE ORDER TO [facility]. [facility] WILL ACCEPT PT TODAY. NURSE REPORT TO BE CALLED TO [facility] AT [phone]. PT TO TRANSPORT VIA AMBULANCE. Sales Administration Specialist: Carlos Orosco DCP- Discharge Planning Updated by [id number]: Carlos Orosco on 07/28/18 3:[address] Patient Name: GENESIS HOLLIS Encounter No: [id number] : 1945 Primary Insurance: MEDICARE A & B Anticipated DC Date: 07-29-2018 Planned Disposition: Nursing Facility [facility] Cert External Planned Provider: [facility], MEDICARE REHAB BED Discharge Planning Comments: CM RECEIVED KANIKA CLEARANCE TO RETURN TO NURSING FACILITY. CM CALLED AND SPOKE TO NICHOLAS [facility], , WHO STATED IT IS TOO LATE TO RETURN TODAY (CM OBSERVED CLOCK: 1600 HOURS) CM FAXED KANIKA APPROVAL TO [facility] AT [phone]. NICHOLAS SAID PT CAN RETURN AT 0800AM TOMORROW, 07-29-18. CM NOTIFIED BEDSIDE NURSE. CM PAGED DR. CUMMINGS. [facility] WILL ACCEPT PT 07-29-18 AT 0800 HOURS. NURSE REPORT TO BE CALLED TO [facility] AT [phone]. PT TO TRANSPORT VIA AMBULANCE. Sales Administration Specialist: Carlos Orosco DCP- Discharge Planning Updated by [id number]: Carlos Orosco on 07/28/18 10:[address] Patient Name: GENESIS HOLLIS Encounter No: [id number] : 1945 Primary Insurance: MEDICARE A & B Anticipated DC Date: 07-28-2018 Planned Disposition: Nursing Facility [facility] External Planned Provider:[facility], MEDICARE REHAB BED Discharge Planning Comments: CM CALLED AND SPOKE TO [facility], , FAX RECEIVED, THEY WILL ACCEPT TODAY BUT NEED A KANIKA TO RETURN. CM NOTIFIED DR. CUMMINGS, COMPLETED KANIKA, OBTAINED DR MELO, [facility] WITH REQUEST FOR [facility]PEDITED REVIEW,[phone]. [facility] WILL NOT ACCEPT UNTIL CLEARED FOR ADMISSION BY [facility]. CM WAITING ON KANIKA SCREENING. Sales Administration Specialist: Carlos Orosco DCP- Discharge Planning Updated by [id number]: Carlos Orosco on 07/28/18 7:[address] Patient Name: GENESIS HOLLIS Encounter No: [id number] : 1945 Primary Insurance: MEDICARE A & B Anticipated DC Date: 07-28-2018 Planned Disposition: Nursing Facility [facility] Cert External Planned Provider: [facility], MEDICARE REHAB BED Discharge Planning Comments: CM CALLED AND SPOKE TO [facility], , FAX RECEIVED, THEY WILL ACCEPT TODAY AND PT WILL RETURN TO [facility] IN A SKILLED BED. NURSE REPORT TO BE CALLED TO [facility] AT [phone]. PT TO TRANSPORT VIA AMBULANCE. Sales Administration Specialist: Carlos Orosco DCP- Discharge Planning Updated by [id number]: Carlos Orosco on 07/28/18 6:[address] Patient Name: GENESIS HOLLIS Encounter No: [id number] : 1945 Primary Insurance: MEDICARE A & B Anticipated DC Date: Planned Disposition: Nursing Facility [facility] Cert External Planned Provider: [facility] MEDICAID BED Discharge Planning Comments: CM SPOKE TO BEDSIDE NURSE WHO INFORMED CM OF DISCHARGE TODAY. CM FAXED AVAILABLE DISCHARGE INFORMATION TO [facility] AT [phone]. CM SPOKE TO PT IN ROOM WHO IS IN AGREEMENT WITH RETURN TO THE GROUP HOME TODAY. NURSE REPORT TO BE CALLED TO [facility] AT [phone]. PT TO TRANSPORT VIA AMBULANCE. Sales Administration Specialist: Carlos Irwin . DCP- Discharge Planning Updated by [id number]: Carlos Orosco on 07/27/18 8:[address] Patient Name: GENESIS HOLLIS Encounter No: [id number] : 1945 Primary Insurance: MEDICARE A & B Anticipated DC Date: Planned Disposition: Nursing Facility [facility] Cert External Planned Provider: [facility] AND [facility] TERM CARE MEDICAID BED Discharge Planning Comments: CM RECEIVED CALL FROM CURRY OF [facility] REQUESTING HOSPITAL UPDATE. CM FAXED HOSPITAL UPDATE TO [facility] AT [phone]. CM SPOKE TO PT IN ROOM DISCUSSED DISCHARGE PLANNING AND NEEDS. PT DENIES NEEDS, IN AGREEMENT WITH PLAN TO RETURN TO THE GROUP HOME AT DISCHARGE. IMPORTANT MESSAGE FROM MEDICARE PROVIDED AND EXPLAINED. FOR DISCHARGE BACK TO [facility] AT [facility], FAX DISCHARGE INFORMATION TO [phone]. NURSE REPORT TO BE CALLED TO [facility] AT [phone]. PT TO TRANSPORT VIA AMBULANCE. Sales Administration Specialist: Carlos Orosco DCP- Discharge Planning Updated by [id number]: Carlos Orosco on 07/25/18 8:[address] Patient Name: GENESIS HOLLIS Encounter No: [id number] : 1945 Primary Insurance: MEDICARE A & B Anticipated DC Date: Planned Disposition: Nursing Facility [facility] Cert External Planned Provider: [facility] AND [facility] TERM CARE MEDICAID BED Discharge Planning Comments: CM FAXED HOSPITAL UPDATE TO [facility] AT [phone]. FOR DISCHARGE BACK TO [facility] AT [facility], FAX DISCHARGE INFORMATION TO [phone]. NURSE REPORT TO BE CALLED TO [facility] AT [phone]. PT TO TRANSPORT VIA AMBULANCE. Sales Administration Specialist: Carlos Orosco DCP- Discharge Planning Updated by [id number]: Carlos Orosco on 07/22/18 10:[address] Patient Name: GENESIS HOLLIS Admission Status: Elective Accout number: [id number] Admission Date: 07-16-2018 : 1945 Admission Diagnosis:SEPSIS, UNSPECIFIED ORGANISM Attending: IRMA CUMMINGS Current LOS: 6 Anticipated DC Date: Planned Disposition: Nursing Facility [facility] Primary Insurance: MEDICARE A & B PLANNED EXTERNAL PROVIDER: [facility] AND [facility], [facility] MEDICAID BED Discharge Planning Comments: CM HEARD PT CONTINUALLY YELLING "HELP" FROM ROOM. CM MET WITH PT IN ROOM AND ASKED WHAT PT NEEDS HELP WITH. PT STATES HE DOES NOT KNOW. CM ASKED TO DISCUSS DISCHARGE PLANNING AND NEEDS. PT REPORTS LIVING AT HOME INDEPENDENTLY AND ALONE ABOUT THREE MILES FROM HERE. CM ASKED PT WHERE HE IS AT NOW, PT STATES HOSPITAL AND I'M TIRED OF BEING HERE. . PT REPORTS HAVING NO MEDICAL EQUIPMENT AND NO OUTSIDE SERVICES ASSISTING IN THE HOME. CM DISCUSSED GROUP HOME CARE PT'S CHART INDICATES PT BEING FROM LOCAL GROUP HOME. PT STATES THAT HE IS STAYING AT [facility] AND HAD BEEN GETTING REHAB THERE. PT STATES HE IS GOING BACK THERE FROM THE HOSPITAL AND WANTS TO GO NOW. CM EXPLAINED THAT THE DOCTOR NEEDS TO DISCHARGE HIM WHEN STABLE TO RETURN TO [facility]. PT REPORTS UNDERSTANDING. CM EXPLAINED CALL LIGHT USE FOR ASSISTANCE. PT STATES IT DOES NOT WORK. CM DEMONSTRATED HOW TO PUSH THE BUTTON AND IT DID WORK . PT STATES HE WILL JUST CALL OUT FOR HELP WHEN HE NEEDS IT. PT CHOICE WAS NOT SIGNED BY PT HE STATES HE CANNOT, CHOICE COMPLETED. CM SPOKE TO CURRY OF [facility] AT NURSES STATION, CUR[facility] REPORTS PT IS IN [facility] AT [facility] AND THEY WILL ACCEPT BACK FOR CONTINUED CARE AT DISCHARGE. CM FAXED HOSPITAL UPDATE TO [facility] AT [phone]. FOR DISCHARGE BACK TO [facility] AT [facility], FAX DISCHARGE INFORMATION TO [phone]. NURSE REPORT TO BE CALLED TO [facility] AT [phone]. PT TO TRANSPORT VIA AMBULANCE. Sales Administration Specialist: Carlos Orosco DCPIA - Discharge Planning Initial Assessment Updated by [id number]: Carlos Orosco on 07/22/18 10:54 am * Is the patient Alert and Oriented? Yes * How many steps to enter\\exit or inside your home? NONE * PCP DR. CUMMINGS * Pharm[facility] * Preadmission Environment Senior Living Half-Way * Facility Name [facility] [place] * ADLs Total Dependent * Equipment Other * Other Equipment ALL MEDICAL EQUIPMENT PROVIDED BY FACILITY * List name and contact numbers for known caregivers / representatives who currently or will assist patient after discharge: HUDSON WOODWARD, FRIEND, MALGORZATA PRICE, FRIEND, * Verbal permission to speak to the caregivers and representatives has been obtained from the patient. No * Community resources currently utilized None * Please name any agencies selected above. NONE * Additional services required to return to the preadmission environment? No * Can the patient safely return to the preadmission environment? Yes * Has this patient been hospitalized within the prior 30 days at any hospital? Yes Coverage Notice Reviewer: [id number] Orosco Notice Issued Date-Time: 07/22/2018 9:15 Notice Type: Patient Choice Letter Notice Delivered To: Patient Relationship to Patient: Photo Printer Name: Delivery Method: HAND - Hand Delivered Jennifer Days: Prior Verbal Notification: Recipient Understood Notice: Yes Recipient Signature: Med Rec Note Co-signed by Attending: Coverage Notice Comment: [facility] Reviewer: [id number] Orosco Notice Issued Date-Time: 07/27/2018 9:45 Notice Type: IM Discharge Notice Notice Delivered To: Patient Relationship to Patient: Photo Printer Name: Delivery Method: HAND - Hand Delivered Jennifer Days: Prior Verbal Notification: Recipient Understood Notice: Yes Recipient Signature: Yes Med Rec Note Co-signed by Attending: Coverage Notice Comment: Last DP export: 07/28/18 3:26 pm Patient Name: GENESIS HOLLIS Page 79995 at 0956 All edits/amendments must be made on the electronic document DICTATION DATE: 07/29/18954 INSTRUCTOR PRODUCT INSPECTION: JONNY 07/29/18954 RPT#: [id number] DC DATE: STATUS: ADM IN [facility] [address] [place] [address] END OF REPORT
--- NOTE | 2018-07-29 10:22 | NUR ---
CHANGED PT COMPLETELY AND GOT HIM DRESSED IN HIM CLOTHES. PT IS COMPLETELY READY TO GO JUST WAITING ON TRANSPORTATION. NO CURRENT NEEDS. WILL CTM.
--- NOTE | 2018-07-29 10:26 | MORECARE ---
CASE MANAGEMENT DISCHARGE SUMMARY PATIENT: GENESIS HOLLIS UNIT: [id number] ADM DATE: 07/16/18 AGE: 72 : 45 SEX: M ROOM/BED: D.2105 AUTHOR: JOSE,DOC PHYSICIAN: REFERRING PHYSICIAN: IRMA CUMMINGS MD DATE OF SERVICE: 07/29/18 Discharge Plan Patient Name: GENESIS HOLLIS Facility: [facility]:[place] : 1945 Planned Disposition: Nursing Facility [facility] Cert Anticipated Discharge Date: 07/29/18 Discharge Date: Expected LOS: 13 Initial Reviewer: [id number] Initial Review Date: 07/22/2018 Generated: 07/29/18 11:25 am Comments DCP- Discharge Planning Updated by [email or web address]: Carlos Orosco on 07/29/18 8:[address] Patient Name: GENESIS HOLLIS Encounter No: [id number] : 1945 Primary Insurance: MEDICARE A & B Anticipated DC Date: 07-29-2018 Planned Disposition: Nursing Facility [facility] Cert External Planned Provider: [facility], MEDICARE REHAB BED Discharge Planning Comments: CM RECEIVED CALL FROM [facility]ICHOL[facility], , WHO STATED THEY ARE READY TO ACCEPT PT TODAY CM NOTIFIED BEDSIDE NURSE AND GROMMET MAN NURSE. CM FAXED UPDATED DISCHARGE ORDER TO [facility]. [facility] WILL ACCEPT PT TODAY. NURSE REPORT TO BE CALLED TO [facility] AT [phone]. PT TO TRANSPORT VIA AMBULANCE. Contact Lens Flashing Puncher: Carlos Orosco DCP- Discharge Planning Updated by [email or web address]: Carlos Orosco on 07/28/18 3:[address] Patient Name: GENESIS HOLLIS Encounter No: [id number] : 1945 Primary Insurance: MEDICARE A & B Anticipated DC Date: 07-29-2018 Planned Disposition: Nursing Facility [facility] Cert External Planned Provider: [facility], MEDICARE REHAB BED Discharge Planning Comments: CM RECEIVED KANIKA CLEARANCE TO RETURN TO NURSING FACILITY. CM CALLED AND SPOKE TO NICHOLAS [facility], , WHO STATED IT IS TOO LATE TO RETURN TODAY (CM OBSERVED CLOCK: 1600 HOURS) CM FAXED KANIKA APPROVAL TO [facility] AT [phone]. NICHOLAS SAID PT CAN RETURN AT 0800AM TOMORROW, 07-29-18. CM NOTIFIED BEDSIDE NURSE. CM PAGED DR. CUMMINGS. [facility] WILL ACCEPT PT 07-29-18 AT 0800 HOURS. NURSE REPORT TO BE CALLED TO [facility] AT [phone]. PT TO TRANSPORT VIA AMBULANCE. Contact Lens Flashing Puncher: Carlos Orosco DCP- Discharge Planning Updated by [id number]: Carlos Orosco on 07/28/18 10:[address] Patient Name: GENESIS HOLLIS Encounter No: [id number] : 1945 Primary Insurance: MEDICARE A & B Anticipated DC Date: 07-28-2018 Planned Disposition: Nursing Facility [facility] External Planned Provider:[facility], MEDICARE REHAB BED Discharge Planning Comments: CM CALLED AND SPOKE TO [facility], , FAX RECEIVED, THEY WILL ACCEPT TODAY BUT NEED A KANIKA TO RETURN. CM NOTIFIED DR. CUMMINGS, COMPLETED KAINKA, OBTAINED DR MELO, FAXED TO [facility] [place]QUEST FOR [place]PEDITED REVIEW,[phone]. [facility] WILL NOT ACCEPT UNTIL CLEARED FOR ADMISSION BY [facility]. CM WAITING ON KANIKA SCREENING. Contact Lens Flashing Puncher: Carlos Orosco DCP- Discharge Planning Updated by [id number]: Carlos Orosco on 07/28/18 7:[address] Patient Name: GENESIS HOLLIS Encounter No: [id number] : 1945 Primary Insurance: MEDICARE A & B Anticipated DC Date: 07-28-2018 Planned Disposition: Nursing Facility [facility] Cert External Planned Provider: [facility], MEDICARE REHAB BED Discharge Planning Comments: CM CALLED AND SPOKE TO [facility], , FAX RECEIVED, THEY WILL ACCEPT TODAY AND PT WILL RETURN TO [facility] IN A SKILLED BED. NURSE REPORT TO BE CALLED TO [facility] AT [phone]. PT TO TRANSPORT VIA AMBULANCE. Contact Lens Flashing Puncher: Carlos Orosco DCP- Discharge Planning Updated by [id number]: Carlos Orosco on 07/28/18 6:[address] Patient Name: GENESIS HOLLIS Encounter No: [id number] : 1945 Primary Insurance: MEDICARE A & B Anticipated DC Date: Planned Disposition: Nursing Facility [facility] Cert External Planned Provider: [facility] MEDICAID BED Discharge Planning Comments: CM SPOKE TO BEDSIDE NURSE WHO INFORMED CM OF DISCHARGE TODAY. CM FAXED AVAILABLE DISCHARGE INFORMATION TO [facility] AT [phone]. CM SPOKE TO PT IN ROOM WHO IS IN AGREEMENT WITH RETURN TO THE LONGTERM TODAY. NURSE REPORT TO BE CALLED TO [facility] AT [phone]. PT TO TRANSPORT VIA AMBULANCE. Contact Lens Flashing Puncher: Carlos Irwin . DCP- Discharge Planning Updated by [id number]: Carlos Orosco on 07/27/18 8:[address] Patient Name: GENESIS HOLLIS Encounter No: [id number] : 1945 Primary Insurance: MEDICARE A & B Anticipated DC Date: Planned Disposition: Nursing Facility [facility] Cert External Planned Provider: [facility] MEDICAID BED Discharge Planning Comments: CM RECEIVED CALL FROM CURRY OF [facility] REQUESTING HOSPITAL UPDATE. CM FAXED HOSPITAL UPDATE TO [facility] AT [phone]. CM SPOKE TO PT IN ROOM DISCUSSED DISCHARGE PLANNING AND NEEDS. PT DENIES NEEDS, IN AGREEMENT WITH PLAN TO RETURN TO THE LONGTERM AT DISCHARGE. IMPORTANT MESSAGE FROM MEDICARE PROVIDED AND EXPLAINED. FOR DISCHARGE BACK TO [facility] AT [facility], FAX DISCHARGE INFORMATION TO [phone]. NURSE REPORT TO BE CALLED TO [facility] AT [phone]. PT TO TRANSPORT VIA AMBULANCE. Contact Lens Flashing Puncher: Carlos Orosco DCP- Discharge Planning Updated by [id number]: Carlos Orosco on 07/25/18 8:[address] Patient Name: GENESIS HOLLIS Encounter No: [id number] : 1945 Primary Insurance: MEDICARE A & B Anticipated DC Date: Planned Disposition: Nursing Facility [facility] Cert External Planned Provider: [facility] TERM CARE MEDICAID BED Discharge Planning Comments: CM FAXED HOSPITAL UPDATE TO [facility] AT [phone]. FOR DISCHARGE BACK TO [facility] AT [facility], FAX DISCHARGE INFORMATION TO [phone]. NURSE REPORT TO BE CALLED TO [facility] AT [phone]. PT TO TRANSPORT VIA AMBULANCE. Contact Lens Flashing Puncher: Carlos Orosco DCP- Discharge Planning Updated by [id number]: Carlos Orosco on 07/22/18 10:[address] Patient Name: GENESIS HOLLIS Admission Status: Elective Accout number: [id number] Admission Date: 07-16-2018 : 1945 Admission Diagnosis:SEPSIS, UNSPECIFIED ORGANISM Attending: IRMA CUMMINGS Current LOS: 6 Anticipated DC Date: Planned Disposition: Nursing Facility [facility] Primary Insurance: MEDICARE A & B PLANNED EXTERNAL PROVIDER: [facility], [facility] MEDICAID BED Discharge Planning Comments: CM HEARD PT CONTINUALLY YELLING "HELP" FROM ROOM. CM MET WITH PT IN ROOM AND ASKED WHAT PT NEEDS HELP WITH. PT STATES HE DOES NOT KNOW. CM ASKED TO DISCUSS DISCHARGE PLANNING AND NEEDS. PT REPORTS LIVING AT HOME [place]DEPENDENT[place] AND ALONE ABOUT THREE MILES FROM HERE. CM ASKED PT WHERE HE IS AT NOW, PT STATES HOSPITAL AND I'M TIRED OF BEING HERE. . PT REPORTS HAVING NO MEDICAL EQUIPMENT AND NO OUTSIDE SERVICES ASSISTING IN THE HOME. CM DISCUSSED LONGTERM CARE PT'S CHART INDICATES PT BEING FROM LOCAL LONGTERM. PT STATES THAT HE IS STAYING AT [facility] AND HAD BEEN GETTING REHAB THERE. PT STATES HE IS GOING BACK THERE FROM THE HOSPITAL AND WANTS TO GO NOW. CM EXPLAINED THAT THE DOCTOR NEEDS TO DISCHARGE HIM WHEN STABLE TO RETURN TO [facility]. PT REPORTS UNDERSTANDING. CM EXPLAINED CALL LIGHT USE FOR ASSISTANCE. PT STATES IT DOES NOT WORK. CM DEMONSTRATED HOW TO PUSH THE BUTTON AND IT DID WORK . PT STATES HE WILL JUST CALL OUT FOR HELP WHEN HE NEEDS IT. PT CHOICE WAS NOT SIGNED BY PT HE STATES HE CANNOT, CHOICE COMPLETED. CM SPOKE TO CURRY OF [facility] AT NURSES STATION, CURRY REPORTS PT IS IN [facility] AT [facility] AND THEY WILL ACCEPT BACK FOR CONTINUED CARE AT DISCHARGE. CM FAXED HOSPITAL UPDATE TO [facility] AT [phone]. FOR DISCHARGE BACK TO [facility] AT [facility], FAX DISCHARGE INFORMATION TO [phone]. NURSE REPORT TO BE CALLED TO [facility] AT [phone]. PT TO TRANSPORT VIA AMBULANCE. Contact Lens Flashing Puncher: Carlos Orosco DCPIA - Discharge Planning Initial Assessment Updated by [id number]: Carlos Orosco on 07/22/18 10:54 am * Is the patient Alert and Oriented? Yes * How many steps to enter\\exit or inside your home? NONE * PCP DR. CUMMINGS * [facility] * [facility]read[facility] * Facility Name [facility] [place] * ADLs Total Dependent * Equipment Other * Other Equipment ALL MEDICAL EQUIPMENT PROVIDED BY FACILITY * List name and contact numbers for known caregivers / representatives who currently or will assist patient after discharge: HUDSON WOODWARD, FRIEND, MALGORZATA PRICE, FRIEND, * Verbal permission to speak to the caregivers and representatives has been obtained from the patient. No * Community resources currently utilized None * Please name any agencies selected above. NONE * Additional services required to return to the preadmission environment? No * Can the patient safely return to the preadmission environment? Yes * Has this patient been hospitalized within the prior 30 days at any hospital? Yes Coverage Notice Reviewer: [id number] Orosco Notice Issued Date-Time: 07/22/2018 9:15 Notice Type: Patient Choice Letter Notice Delivered To: Patient Relationship to Patient: Logger All Round Name: Delivery Method: HAND - Hand Delivered Jennifer Days: Prior Verbal Notification: Recipient Understood Notice: Yes Recipient Signature: Med Rec Note Co-signed by Attending: Coverage Notice Comment: [facility] Reviewer: [id number] Orosco Notice Issued Date-Time: 07/27/2018 9:45 Notice Type: IM Discharge Notice Notice Delivered To: Patient Relationship to Patient: Logger All Round Name: Delivery Method: HAND - Hand Delivered Jennifer Days: Prior Verbal Notification: Recipient Understood Notice: Yes Recipient Signature: Yes Med Rec Note Co-signed by Attending: Coverage Notice Comment: Last DP export: 07/29/18 8:56 a Patient Name: GENESIS HOLLIS Page [id number] at 1026 All edits/amendments must be made on the electronic document DICTATION DATE: 07/29/18 1025 INFORMATION TECHNOLOGY TECHNICIAN: JONNY 07/29/18 1025 RPT#: [id number] DC DATE: STATUS: ADM IN [facility] [address] [place] [address] END OF REPORT
--- NOTE | 2018-07-29 10:31 | NUR ---
[facility] HERE TAKING PT NOW. NO NEEDS. ALL BELONGINGS SENT WITH PT.
== END 2018-07-29 11:06 | DRG 871 ==
LOC: D.ER 13:48 → D.ICU 14:05 → D.M2 14:05
PROVIDERS: Internal Medicine Pulmonary Disease; Urology; ADMIT Family Medicine; ATTEND Family Medicine
PROC: 0TJB8ZZ Inspection of Bladder, Via Natural or Artificial Opening Endoscopic (ICD-10-PCS; principal; 2018-07-16 17:46)
DX: A41.9 Sepsis, unspecified organism (principal); J18.9 Pneumonia, unspecified organism; N17.9 Acute kidney failure, unspecified; N99.71 Accidental puncture and laceration of a genitourinary system organ or structure during a genitourinary system procedure; R45.851 Suicidal ideations; I69.359 Hemiplegia and hemiparesis following cerebral infarction affecting unspecified side; F01.51 Vascular dementia, unspecified severity, with behavioral disturbance; I48.1 Persistent atrial fibrillation; N39.0 Urinary tract infection, site not specified; R31.9 Hematuria, unspecified; F32.9 Major depressive disorder, single episode, unspecified; E78.5 Hyperlipidemia, unspecified; K21.9 Gastro-esophageal reflux disease without esophagitis; I25.10 Atherosclerotic heart disease of native coronary artery without angina pectoris; E55.9 Vitamin D deficiency, unspecified; G62.9 Polyneuropathy, unspecified; I12.9 Hypertensive chronic kidney disease with stage 1 through stage 4 chronic kidney disease, or unspecified chronic kidney disease; N18.9 Chronic kidney disease, unspecified; Z74.09 Other reduced mobility